=== PATIENT | male | born 1930 | race Caucasian/White ===

== ENCOUNTER 2016-12-31 18:31 | Inpatient (IN) ==
[2016-12-31] MEDS ORDERED: *HR* FentaNYL (PF) 100 MCG/2 ML VIAL IVP ONE (18:51)
[2016-12-31 18:52] LABS: Basophils % 0.1 %; Hematocrit 35.9 % (37.5-50.1); Hemoglobin 11.5 g/dL (12.9-16.9); Immature Granulocytes % 0.4 % (0-4); Lymphocytes # 1.2 K/mcL (0.6-4.6); Lymphocytes % 7.6 %; Mean Corpuscular Hemoglobin 31.3 pg (28.0-33.3); Mean Corpuscular Volume 97.8 fL (83.0-100.0); Mean Platelet Volume 10.2 fL (9.4-12.4); Monocytes # 1.1 K/mcL (0.0-1.3); Monocytes % 7.2 %; Neutrophils # 13.2 K/mcL (1.6-8.9); Platelet Count 165 K/mcL (140-400); Red Blood Count 3.67 M/mcL (4.19-5.50); Red Cell Distribution Width 14.9 % (11.5-14.5); Segmented Neutrophils % 84.7 %
[2016-12-31] MEDS ORDERED: *HR* Etomidate 20 MG/10 ML AMPUL IVP ONE (18:55)
[2016-12-31] MEDS ORDERED: *HR* Rocuronium Bromide 50 MG/5 ML VIAL IVP ONE (18:55)
--- NOTE | 2016-12-31 18:56 | Emergency Department Note ---
Disposition Clinical Impression: Respiratory distress Aspiration pneumonia Qualifiers: Aspiration pneumonia type: unspecified Laterality: unspecified laterality Lung location: unspecified part of lung Qualified Code(s): J69.0 - Pneumonitis due to inhalation of food and vomit Disposition: Admitted As Inpatient Condition: Fair SOB HPI - General Chief Complaint: ED Shortness of Breath/Dyspnea Stated Complaint: respiratory distress Time Seen by Provider: 12/31/16 18:33 Source: family, EMS Mode of arrival: EMS Limitations: altered mental status Nursing Notes Reviewed: Yes Vital Signs Reviewed: Yes - History of Present Illness 86-year-old male with a history of diabetes, hypertension, redo sternotomy in the remote past presents for evaluation respiratory distress. provided all the history as patient is nonverbal. Patient is non-motoric baseline and is limited verbally. states that the patient choked on his breakfast early this morning and then had increasing shortness of breath throughout the day. By the time the patient arrived to the emergency department. The patient was minimally responsive and CODE STATUS was discussed with the family states the patient is full code. Discuss intubation for airway protection. agreed that they would go ahead with intubation. Patient's bedside blood sugar was noted to be high in the 300s. Patient's EKG initially shows no acute abnormalities. - Related Data Home Medications Medication Instructions Recorded Confirmed Aspirin Enteric Coated [Aspirin EC] 81 mg PO DAILY 03/14/16 03/14/16 Citalopram [CeleXA] 40 mg PO DAILY 03/14/16 03/14/16 Insulin DETEMIR [Levemir Flextouch] 10 unit SQ HS 03/14/16 06/13/16 Metformin [Glucophage] 500 mg PO BIDWM 03/14/16 03/14/16 Multivits,Ca,Min/Iron/FA/Lycop 1 each PO DAILY 03/14/16 03/14/16 [Centrum Men's Tablet] Potassium Chloride [K-Tab ER] 20 meq PO DAILY 03/14/16 03/14/16 Quetiapine Fumarate [SEROquel] 25 mg PO HS 03/14/16 03/14/16 Allergies Allergy/AdvReac Type Severity Reaction Status Date / Time cephalexin AdvReac Rash Verified 03/14/16 11:04 Penicillins AdvReac Swelling Verified 03/14/16 11:04 of Lip/Tongue/Throat Limitations: ROS unobtainable due to patients medical condition Past Medical History - Past Medical History Medical history: Reports: diabetes, hyperlipidemia, hypertension, myocardial infarction Surgical history: Reports: coronary bypass (CABG), orthopedic, other Psychiatric history: Reports: no psych history - Social History Smoking Status: Former smoker Smokeless Tobacco Status: No Alcohol use: Reports: none, unknown Drug use: Reports: none, unknown Physical Exam - General Limitations: altered mental status General appearance: in distress - Head Head exam: atraumatic, normal inspection - Eye Eye exam: Present: normal appearance, PERRL (3 mm ) - ENT ENT exam: normal exam, mucous membranes moist - Neck Neck exam: Present: trachea midline - Chest Chest inspection: Present: symmetric chest wall rise, other (Midline healing sternotomy scar) - Respiratory Respiratory exam: Present: respiratory distress, other (Diffuse bilateral rails in the upper and lower lung pappas) - Cardiovascular Cardiovascular exam: Present: tachycardia, normal heart sounds - Abdominal Exam Abdominal exam: Present: soft. 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 Notable respiratory distress. Patient was intubated for airway precaution with a low GCS. Patient history provided by the likely secondary to aspiration from choking on his meal earlier today. Patient had wet lung sounds initially and those concerns of pulmonary edema. Patient was intubated after confirming full CODE STATUS. Patient will get a metabolic and infectious workup as well as cardiopulmonary with EKG and troponin. - Reevaluation(s) Reevaluation #1: Patient seen and examined. Patient's vent settings were changes from the last ABG. Patient PO2 is elevated patient's FiO2 was titrated down. Updated family on plan of care. All questions were answered the time. Patient's vitals are stable. Awaiting critical care bed upstairs. Time: 20:30 Vital Signs Temperature 99.9 F H 12/31/16 18:35 Pulse Rate 103 12/31/16 18:35 Respiratory Rate 34 12/31/16 18:35 Blood Pressure 140/66 12/31/16 18:35 O2 Sat by Pulse Oximetry 96 12/31/16 18:35 Temperature 99.9 F H 12/31/16 18:35 Pulse Rate 91 12/31/16 20:14 Respiratory Rate 12 12/31/16 20:14 Blood Pressure 128/65 12/31/16 20:14 O2 Sat by Pulse Oximetry 100 12/31/16 20:14 Oxygen Delivery Oxygen Delivery Ventilator Procedures - Intubation Time out performed: Yes sedative: Etomidate Mg Given: 20 paralytic: Rocuronium Mg Given: 70 Laryngoscope: Lisy ET Tube Size: 7.5 ET Tube Uncuffed: Yes Tube Secured Depth (cm): 23 Tube Secured Location: lips Tube Placement Confirmation: visualized tube passing through cords, equal breath sounds bilaterally, no breath sounds over epigastrium, confirmation by capnometry Patient Tolerated Procedure: well Intubation Complications: none Shortness of Breath/Dyspnea - [facility] Narrative Medical decision making narrative: 86-year-old male presents for evaluation of acute respiratory failure. Patient was nonverbal and is nonverbal at baseline. Patient is nonambulatory at baseline. Patient's CODE STATUS was confirmed by patient's on arrival. Patient was full code and discussed intubation. confirms that the patient is limited verbal with being nonambulatory at baseline. Reports that he possibly choked on his breakfast this morning. Respiratory status worsened throughout the day. Patient was given neck upon arrival. Patient was requiring 15 L to maintain oxygenation. Patient was not protecting his airway and was concerned about further aspiration. Patient's GCS was 8. Patient was intubated without difficulty with the first pass. Patient was sedated with fentanyl as well as propofol. Patient's lab work reviewed shows a leukocytosis. Concern is that the patient lungs sounded wet patient was given IV fluid bolus. Patient does meet SIRS criteria however the 30 mL/kg bolus would not be appropriate for this gentleman at this time due to concerns of respiratory status possible pulmonary edema. Patient's lactate was mildly elevated at 2.7. Patient was started on antibiotics appropriate for aspiration pneumonia. Patient does have a penicillin allergy with possible anaphylaxis. Patient's creatinine is mildly elevated. Patient's mental status. To be somewhat at baseline per the family and neuro imaging with a CT was not indicated at this time. Discussed the plan of care with the family at bedside who agrees. Patient was admitted to the accident. Intensive care unit for further monitoring and therapy. - Lab Data Lab results reviewed: Yes I reviewed the patient's lab results. Result diagrams: 12/31/16 18:41 12/31/16 18:41 Lab Results 12/31/16 12/31/16 12/31/16 Range/Units 18:41 18:41 18:41 WBC 15.6 H (4.3-11.1) K/mcL RBC 3.67 L (4.19-5.50) M/mcL Hgb 11.5 L (12.9-16.9) g/dL Hct 35.9 L (37.5-50.1) % MCV 97.8 (83.0-100.0) fL MCH 31.3 (28.0-33.3) pg MCHC 32.0 (31.6-35.5) g/dL RDW 14.9 H (11.5-14.5) % Plt Count 165 (140-400) K/mcL MPV 10.2 (9.4-12.4) fL Immature Gran % 0.4 (0-4) % Seg Neutrophils % 84.7 % Lymphocytes % 7.6 % Monocytes % 7.2 % Eosinophils % 0.0 % Basophils % 0.1 % Neutrophils # 13.2 H (1.6-8.9) K/mcL Lymphocytes # 1.2 (0.6-4.6) K/mcL Monocytes # 1.1 (0.0-1.3) K/mcL Eosinophils # 0.0 (0.0-0.6) K/mcL Basophils # 0.0 (0.0-0.2) K/mcL Platelet Estimate Normal (Normal) PT 13.8 H (9.4-12.1) Seconds INR 1.3 APTT 32.6 (26.0-36.0) Seconds Sodium 146 H (136-145) mEq/L Potassium 3.8 (3.5-4.5) mEq/L Chloride 117 H (98-109) mEq/L Carbon Dioxide 19 (19-29) mEq/L BUN 39 H (8-26) mg/dL Creatinine 1.51 H (0.72-1.25) mg/dL Est GFR ( Amer) 53 L (> 60) Est GFR (Non-Af Amer) 44 L (> 60) BUN/Creatinine Ratio 26 (6-26) Glucose 367 H (70-99) mg/dL Calculated Osmolality 326 H (280-300) Lactic Acid (0.5-2.2) mmol/L Calcium 9.3 (8.6-10.8) mg/dL Total Bilirubin 0.3 (0.2-1.2) mg/dL Direct Bilirubin 0.2 (0.0-0.5) mg/dL Indirect Bilirubin 0.1 (0.0-1.2) mg/dL AST 13 (5-34) Units/L ALT 19 (0-55) Units/L Alkaline Phosphatase 98 (38-126) Units/L Troponin I (0-0.03) ng/mL B-Natriuretic Peptide (0-100) pg/mL Serum Total Protein 7.2 (6.0-8.3) g/dL Albumin 2.7 L (3.5-5.0) g/dL Globulin 4.5 H (2.4-3.5) g/dL Albumin/Globulin Ratio 0.6 L (1.1-2.2) Urine Color (Yellow) Urine Clarity (Clear) Urine pH (5.0-8.0) pH Units Ur Specific [place] (1.010-1.025) Urine Protein (Neg-Trace) mg/dL Urine Glucose (UA) (Normal) mg/dL Urine Ketones (Negative) mg/dL Urine Blood (Negative) Urine Nitrite (Negative) Urine Bilirubin (Negative) Urine Urobilinogen (Normal) mg/dL Ur Leukocyte Esterase (Negative) Urine Microscopic RBC (0-3) per hpf Urine Microscopic WBC (0-3) per hpf Ur Squamous Epith Cells (None-Few) per lpf Amorphous Sediment (Few) Urine Bacteria (None-Few) per hpf Hyaline Casts (None-Few) per lpf Granular Casts (None Seen) per lpf Urine Yeast Ur Culture Indicated? (NO) 12/31/16 12/31/16 12/31/16 Range/Units 18:41 18:41 19:09 WBC (4.3-11.1) K/mcL RBC (4.19-5.50) M/mcL Hgb (12.9-16.9) g/dL Hct (37.5-50.1) % MCV (83.0-100.0) fL MCH (28.0-33.3) pg MCHC (31.6-35.5) g/dL RDW (11.5-14.5) % Plt Count (140-400) K/mcL MPV (9.4-12.4) fL Immature Gran % (0-4) % Seg Neutrophils % % Lymphocytes % % Monocytes % % Eosinophils % % Basophils % % Neutrophils # (1.6-8.9) K/mcL Lymphocytes # (0.6-4.6) K/mcL Monocytes # (0.0-1.3) K/mcL Eosinophils # (0.0-0.6) K/mcL Basophils # (0.0-0.2) K/mcL Platelet Estimate (Normal) PT (9.4-12.1) Seconds INR APTT (26.0-36.0) Seconds Sodium (136-145) mEq/L Potassium (3.5-4.5) mEq/L Chloride (98-109) mEq/L Carbon Dioxide (19-29) mEq/L BUN (8-26) mg/dL Creatinine (0.72-1.25) mg/dL Est GFR ( Amer) (> 60) Est GFR (Non-Af Amer) (> 60) BUN/Creatinine Ratio (6-26) Glucose (70-99) mg/dL Calculated Osmolality (280-300) Lactic Acid (0.5-2.2) mmol/L Calcium (8.6-10.8) mg/dL Total Bilirubin (0.2-1.2) mg/dL Direct Bilirubin (0.0-0.5) mg/dL Indirect Bilirubin (0.0-1.2) mg/dL AST (5-34) Units/L ALT (0-55) Units/L Alkaline Phosphatase (38-126) Units/L Troponin I 0.02 (0-0.03) ng/mL B-Natriuretic Peptide 232 H (0-100) pg/mL Serum Total Protein (6.0-8.3) g/dL Albumin (3.5-5.0) g/dL Globulin (2.4-3.5) g/dL Albumin/Globulin Ratio (1.1-2.2) Urine Color Yellow (Yellow) Urine Clarity Slightly Hazy (Clear) Urine pH 5.5 (5.0-8.0) pH Units Ur Specific [place] 1.020 (1.010-1.025) Urine Protein 100 H (Neg-Trace) mg/dL Urine Glucose (UA) Normal (Normal) mg/dL Urine Ketones Negative (Negative) mg/dL Urine Blood Negative (Negative) Urine Nitrite Negative (Negative) Urine Bilirubin Negative (Negative) Urine Urobilinogen Normal (Normal) mg/dL Ur Leukocyte Esterase Negative (Negative) Urine Microscopic RBC 3-5 H (0-3) per hpf Urine Microscopic WBC 0-3 (0-3) per hpf Ur Squamous Epith Cells Many H (None-Few) per lpf Amorphous Sediment Moderate H (Few) Urine Bacteria None Seen (None-Few) per hpf Hyaline Casts Few (None-Few) per lpf Granular Casts Few H (None Seen) per lpf Urine Yeast Test Not Performed Ur Culture Indicated? NO (NO) 12/31/16 Range/Units 19:16 WBC (4.3-11.1) K/mcL RBC (4.19-5.50) M/mcL Hgb (12.9-16.9) g/dL Hct (37.5-50.1) % MCV (83.0-100.0) fL MCH (28.0-33.3) pg MCHC (31.6-35.5) g/dL RDW (11.5-14.5) % Plt Count (140-400) K/mcL MPV (9.4-12.4) fL Immature Gran % (0-4) % Seg Neutrophils % % Lymphocytes % % Monocytes % % Eosinophils % % Basophils % % Neutrophils # (1.6-8.9) K/mcL Lymphocytes # (0.6-4.6) K/mcL Monocytes # (0.0-1.3) K/mcL Eosinophils # (0.0-0.6) K/mcL Basophils # (0.0-0.2) K/mcL Platelet Estimate (Normal) PT (9.4-12.1) Seconds INR APTT (26.0-36.0) Seconds Sodium (136-145) mEq/L Potassium (3.5-4.5) mEq/L Chloride (98-109) mEq/L Carbon Dioxide (19-29) mEq/L BUN (8-26) mg/dL Creatinine (0.72-1.25) mg/dL Est GFR ( Amer) (> 60) Est GFR (Non-Af Amer) (> 60) BUN/Creatinine Ratio (6-26) Glucose (70-99) mg/dL Calculated Osmolality (280-300) Lactic Acid 2.7 H (0.5-2.2) mmol/L Calcium (8.6-10.8) mg/dL Total Bilirubin (0.2-1.2) mg/dL Direct Bilirubin (0.0-0.5) mg/dL Indirect Bilirubin (0.0-1.2) mg/dL AST (5-34) Units/L ALT (0-55) Units/L Alkaline Phosphatase (38-126) Units/L Troponin I (0-0.03) ng/mL B-Natriuretic Peptide (0-100) pg/mL Serum Total Protein (6.0-8.3) g/dL Albumin (3.5-5.0) g/dL Globulin (2.4-3.5) g/dL Albumin/Globulin Ratio (1.1-2.2) Urine Color (Yellow) Urine Clarity (Clear) Urine pH (5.0-8.0) pH Units Ur Specific [place] (1.010-1.025) Urine Protein (Neg-Trace) mg/dL Urine Glucose (UA) (Normal) mg/dL Urine Ketones (Negative) mg/dL Urine Blood (Negative) Urine Nitrite (Negative) Urine Bilirubin (Negative) Urine Urobilinogen (Normal) mg/dL Ur Leukocyte Esterase (Negative) Urine Microscopic RBC (0-3) per hpf Urine Microscopic WBC (0-3) per hpf Ur Squamous Epith Cells (None-Few) per lpf Amorphous Sediment (Few) Urine Bacteria (None-Few) per hpf Hyaline Casts (None-Few) per lpf Granular Casts (None Seen) per lpf Urine Yeast Ur Culture Indicated? (NO) - Radiology Data Radiology results reviewed: Yes I reviewed the patient's radiology results. Chest X-Ray 12/31/16 18:33 IMPRESSION: Endotracheal tube with tip approximately 1.7 cm from the kia. Tip is angled toward the right. This may be related to patient head positioning. Small left pleural effusion. Improvement in left basilar opacity. Air-filled loops of bowel in the upper abdomen which appear prominent. Consider further evaluation with dedicated abdominal radiographs. D/ / Anna Sellers MD / Anna Sellers MD Interpreting Provider: Anna Sellers MD - EKG Data EKG attestation: Yes I reviewed and interpreted this EKG. EKG shows normal: Reports: sinus rhythm Rate: Reports: tachycardia Rhythm: Reports: NSR Ashley/QRS: Reports: normal, RBBB (incomplete) When compared to previous EKG there are: changes noted (2014) Interpretation: Reports: nonspecific ST-T wave changes S.B.Angie - Ángel Situation: Demographics Background: Presenting Complaint, Relevant PMH, Meds, & Allergies Assessment: Vital Signs, Course and respsone to treatment, Exam Concerns, Patient/Family Expectation, Pertinant Lab Results, Outstanding Labs Recommendation: Barrier(s) to disposition, Recommendation based on pending studies, treatments, or consults S.BKizzy Report Given to: Dr. Alex Neal Repor Time: 19:23
[2016-12-31 18:57] LABS: INR 1.3; Prothrombin Time 13.8 Seconds (9.4-12.1)
--- NOTE | 2016-12-31 18:58 | Emergency Department Note ---
Disposition Clinical Impression: Respiratory distress, Aspiration pneumonia Disposition: Admitted As Inpatient Condition: Fair General Adult HPI - General Chief complaint: ED Shortness of Breath/Dyspnea Stated complaint: respiratory distress Time Seen by Provider: 12/31/16 18:33 Source: family, EMS Mode of arrival: EMS Limitations: altered mental status - History of Present Illness Pain Scale: 0 - Related Data Home Medications Medication Instructions Recorded Confirmed Aspirin Enteric Coated [Aspirin EC] 81 mg PO DAILY 03/14/16 03/14/16 Citalopram [CeleXA] 40 mg PO DAILY 03/14/16 03/14/16 Insulin DETEMIR [Levemir Flextouch] 10 unit SQ HS 03/14/16 06/13/16 Metformin [Glucophage] 500 mg PO BIDWM 03/14/16 03/14/16 Multivits,Ca,Min/Iron/FA/Lycop 1 each PO DAILY 03/14/16 03/14/16 [Centrum Men's Tablet] Potassium Chloride [K-Tab ER] 20 meq PO DAILY 03/14/16 03/14/16 Quetiapine Fumarate [SEROquel] 25 mg PO HS 03/14/16 03/14/16 Allergies Allergy/AdvReac Type Severity Reaction Status Date / Time cephalexin AdvReac Rash Verified 03/14/16 11:04 Penicillins AdvReac Swelling Verified 03/14/16 11:04 of Lip/Tongue/Throat Past Medical History - Past Medical History Medical history: Reports: diabetes, hyperlipidemia, hypertension, myocardial infarction Surgical history: Reports: coronary bypass (CABG), orthopedic, other Psychiatric history: Reports: no psych history - Social History Smoking Status: Former smoker Smokeless Tobacco Status: No Alcohol use: Reports: none, unknown Drug use: Reports: none, unknown Physical Exam - General Limitations: altered mental status General appearance: in distress Course Vital Signs Temperature 99.9 F H 12/31/16 18:35 Pulse Rate 103 12/31/16 18:35 Respiratory Rate 34 12/31/16 18:35 Blood Pressure 140/66 12/31/16 18:35 O2 Sat by Pulse Oximetry 96 12/31/16 18:35 Temperature 99.7 F H 12/31/16 21:00 Pulse Rate 96 12/31/16 22:00 Respiratory Rate 12 12/31/16 22:00 Blood Pressure 83/42 12/31/16 22:00 O2 Sat by Pulse Oximetry 91 12/31/16 22:00 Oxygen Delivery Oxygen Delivery Ventilator Medical Decision Making - Lab Data Result diagrams: 12/31/16 18:41 12/31/16 18:41 Lab Results 12/31/16 12/31/16 12/31/16 Range/Units 18:41 18:41 18:41 WBC 15.6 H (4.3-11.1) K/mcL RBC 3.67 L (4.19-5.50) M/mcL Hgb 11.5 L (12.9-16.9) g/dL Hct 35.9 L (37.5-50.1) % MCV 97.8 (83.0-100.0) fL MCH 31.3 (28.0-33.3) pg MCHC 32.0 (31.6-35.5) g/dL RDW 14.9 H (11.5-14.5) % Plt Count 165 (140-400) K/mcL MPV 10.2 (9.4-12.4) fL Immature Gran % 0.4 (0-4) % Seg Neutrophils % 84.7 % Lymphocytes % 7.6 % Monocytes % 7.2 % Eosinophils % 0.0 % Basophils % 0.1 % Neutrophils # 13.2 H (1.6-8.9) K/mcL Lymphocytes # 1.2 (0.6-4.6) K/mcL Monocytes # 1.1 (0.0-1.3) K/mcL Eosinophils # 0.0 (0.0-0.6) K/mcL Basophils # 0.0 (0.0-0.2) K/mcL Platelet Estimate Normal (Normal) PT 13.8 H (9.4-12.1) Seconds INR 1.3 APTT 32.6 (26.0-36.0) Seconds Sodium 146 H (136-145) mEq/L Potassium 3.8 (3.5-4.5) mEq/L Chloride 117 H (98-109) mEq/L Carbon Dioxide 19 (19-29) mEq/L BUN 39 H (8-26) mg/dL Creatinine 1.51 H (0.72-1.25) mg/dL Est GFR ( Amer) 53 L (> 60) Est GFR (Non-Af Amer) 44 L (> 60) BUN/Creatinine Ratio 26 (6-26) Glucose 367 H (70-99) mg/dL Est Mean Plasma Glucose mg/dl Hemoglobin A1c ( - 5.6) % Calculated Osmolality 326 H (280-300) Lactic Acid (0.5-2.2) mmol/L Calcium 9.3 (8.6-10.8) mg/dL Phosphorus 2.9 (2.3-4.7) mg/dL Magnesium 1.4 L (1.6-2.6) mg/dL Total Bilirubin 0.3 (0.2-1.2) mg/dL Direct Bilirubin 0.2 (0.0-0.5) mg/dL Indirect Bilirubin 0.1 (0.0-1.2) mg/dL AST 13 (5-34) Units/L ALT 19 (0-55) Units/L Alkaline Phosphatase 98 (38-126) Units/L Troponin I (0-0.03) ng/mL B-Natriuretic Peptide (0-100) pg/mL Serum Total Protein 7.2 (6.0-8.3) g/dL Albumin 2.7 L (3.5-5.0) g/dL Globulin 4.5 H (2.4-3.5) g/dL Albumin/Globulin Ratio 0.6 L (1.1-2.2) Urine Color (Yellow) Urine Clarity (Clear) Urine pH (5.0-8.0) pH Units Ur Specific [place] (1.010-1.025) Urine Protein (Neg-Trace) mg/dL Urine Glucose (UA) (Normal) mg/dL Urine Ketones (Negative) mg/dL Urine Blood (Negative) Urine Nitrite (Negative) Urine Bilirubin (Negative) Urine Urobilinogen (Normal) mg/dL Ur Leukocyte Esterase (Negative) Urine Microscopic RBC (0-3) per hpf Urine Microscopic WBC (0-3) per hpf Ur Squamous Epith Cells (None-Few) per lpf Amorphous Sediment (Few) Urine Bacteria (None-Few) per hpf Hyaline Casts (None-Few) per lpf Granular Casts (None Seen) per lpf Urine Yeast Ur Culture Indicated? (NO) 12/31/16 12/31/16 12/31/16 Range/Units 18:41 18:41 18:41 WBC (4.3-11.1) K/mcL RBC (4.19-5.50) M/mcL Hgb (12.9-16.9) g/dL Hct (37.5-50.1) % MCV (83.0-100.0) fL MCH (28.0-33.3) pg MCHC (31.6-35.5) g/dL RDW (11.5-14.5) % Plt Count (140-400) K/mcL MPV (9.4-12.4) fL Immature Gran % (0-4) % Seg Neutrophils % % Lymphocytes % % Monocytes % % Eosinophils % % Basophils % % Neutrophils # (1.6-8.9) K/mcL Lymphocytes # (0.6-4.6) K/mcL Monocytes # (0.0-1.3) K/mcL Eosinophils # (0.0-0.6) K/mcL Basophils # (0.0-0.2) K/mcL Platelet Estimate (Normal) PT (9.4-12.1) Seconds INR APTT (26.0-36.0) Seconds Sodium (136-145) mEq/L Potassium (3.5-4.5) mEq/L Chloride (98-109) mEq/L Carbon Dioxide (19-29) mEq/L BUN (8-26) mg/dL Creatinine (0.72-1.25) mg/dL Est GFR ( Amer) (> 60) Est GFR (Non-Af Amer) (> 60) BUN/Creatinine Ratio (6-26) Glucose (70-99) mg/dL Est Mean Plasma Glucose 134 mg/dl Hemoglobin A1c 6.3 H ( - 5.6) % Calculated Osmolality (280-300) Lactic Acid (0.5-2.2) mmol/L Calcium (8.6-10.8) mg/dL Phosphorus (2.3-4.7) mg/dL Magnesium (1.6-2.6) mg/dL Total Bilirubin (0.2-1.2) mg/dL Direct Bilirubin (0.0-0.5) mg/dL Indirect Bilirubin (0.0-1.2) mg/dL AST (5-34) Units/L ALT (0-55) Units/L Alkaline Phosphatase (38-126) Units/L Troponin I 0.02 (0-0.03) ng/mL B-Natriuretic Peptide 232 H (0-100) pg/mL Serum Total Protein (6.0-8.3) g/dL Albumin (3.5-5.0) g/dL Globulin (2.4-3.5) g/dL Albumin/Globulin Ratio (1.1-2.2) Urine Color (Yellow) Urine Clarity (Clear) Urine pH (5.0-8.0) pH Units Ur Specific [place] (1.010-1.025) Urine Protein (Neg-Trace) mg/dL Urine Glucose (UA) (Normal) mg/dL Urine Ketones (Negative) mg/dL Urine Blood (Negative) Urine Nitrite (Negative) Urine Bilirubin (Negative) Urine Urobilinogen (Normal) mg/dL Ur Leukocyte Esterase (Negative) Urine Microscopic RBC (0-3) per hpf Urine Microscopic WBC (0-3) per hpf Ur Squamous Epith Cells (None-Few) per lpf Amorphous Sediment (Few) Urine Bacteria (None-Few) per hpf Hyaline Casts (None-Few) per lpf Granular Casts (None Seen) per lpf Urine Yeast Ur Culture Indicated? (NO) 12/31/16 12/31/16 Range/Units 19:09 19:16 WBC (4.3-11.1) K/mcL RBC (4.19-5.50) M/mcL Hgb (12.9-16.9) g/dL Hct (37.5-50.1) % MCV (83.0-100.0) fL MCH (28.0-33.3) pg MCHC (31.6-35.5) g/dL RDW (11.5-14.5) % Plt Count (140-400) K/mcL MPV (9.4-12.4) fL Immature Gran % (0-4) % Seg Neutrophils % % Lymphocytes % % Monocytes % % Eosinophils % % Basophils % % Neutrophils # (1.6-8.9) K/mcL Lymphocytes # (0.6-4.6) K/mcL Monocytes # (0.0-1.3) K/mcL Eosinophils # (0.0-0.6) K/mcL Basophils # (0.0-0.2) K/mcL Platelet Estimate (Normal) PT (9.4-12.1) Seconds INR APTT (26.0-36.0) Seconds Sodium (136-145) mEq/L Potassium (3.5-4.5) mEq/L Chloride (98-109) mEq/L Carbon Dioxide (19-29) mEq/L BUN (8-26) mg/dL Creatinine (0.72-1.25) mg/dL Est GFR ( Amer) (> 60) Est GFR (Non-Af Amer) (> 60) BUN/Creatinine Ratio (6-26) Glucose (70-99) mg/dL Est Mean Plasma Glucose mg/dl Hemoglobin A1c ( - 5.6) % Calculated Osmolality (280-300) Lactic Acid 2.7 H (0.5-2.2) mmol/L Calcium (8.6-10.8) mg/dL Phosphorus (2.3-4.7) mg/dL Magnesium (1.6-2.6) mg/dL Total Bilirubin (0.2-1.2) mg/dL Direct Bilirubin (0.0-0.5) mg/dL Indirect Bilirubin (0.0-1.2) mg/dL AST (5-34) Units/L ALT (0-55) Units/L Alkaline Phosphatase (38-126) Units/L Troponin I (0-0.03) ng/mL B-Natriuretic Peptide (0-100) pg/mL Serum Total Protein (6.0-8.3) g/dL Albumin (3.5-5.0) g/dL Globulin (2.4-3.5) g/dL Albumin/Globulin Ratio (1.1-2.2) Urine Color Yellow (Yellow) Urine Clarity Slightly Hazy (Clear) Urine pH 5.5 (5.0-8.0) pH Units Ur Specific [place] 1.020 (1.010-1.025) Urine Protein 100 H (Neg-Trace) mg/dL Urine Glucose (UA) Normal (Normal) mg/dL Urine Ketones Negative (Negative) mg/dL Urine Blood Negative (Negative) Urine Nitrite Negative (Negative) Urine Bilirubin Negative (Negative) Urine Urobilinogen Normal (Normal) mg/dL Ur Leukocyte Esterase Negative (Negative) Urine Microscopic RBC 3-5 H (0-3) per hpf Urine Microscopic WBC 0-3 (0-3) per hpf Ur Squamous Epith Cells Many H (None-Few) per lpf Amorphous Sediment Moderate H (Few) Urine Bacteria None Seen (None-Few) per hpf Hyaline Casts Few (None-Few) per lpf Granular Casts Few H (None Seen) per lpf Urine Yeast Test Not Performed Ur Culture Indicated? NO (NO) Critical Care Time Critical Care Time: Yes Total Critical Care Time: 45 Attestation: Patient presented in respiratory distress requiring intubation. He will be admitted to the ICU Attestation Statement - Attestation Attestation: I examined this patient and my medical decision-making was reviewed with the CROOK OPERATOR/PA/Advanced Practice Nurse/Resident Physician. I agree with the documented findings, disposition and treatment plan as described except to the extent set forth below. [id number] time provided Patient presents in respiratory distress. The spouse notes he vomited earlier today. She states he is a full code. He is nonambulatory and minimally verbal at baseline. Increase work of breathing noted. Patient electively endotracheally intubated by the resident physician for airway protection and respiratory support.
[2016-12-31 18:59] LABS: Activated Partial Thrombo Time 32.6 Seconds (26.0-36.0)
[2016-12-31 19:07] LABS: Albumin 2.7 g/dL (3.5-5.0); Albumin/Globulin Ratio 0.6 (1.1-2.2); Bilirubin,Direct 0.2 mg/dL (0.0-0.5); Bilirubin,Indirect 0.1 mg/dL (0.0-1.2); Bilirubin,Total 0.3 mg/dL (0.2-1.2); Calcium 9.3 mg/dL (8.6-10.8); Globulin 4.5 g/dL (2.4-3.5); Potassium 3.8 mEq/L (3.5-4.5); Total Protein 7.2 g/dL (6.0-8.3)
[2016-12-31] MEDS ORDERED: Levofloxacin 750 MG/150 ML 750 MG/150 ML BAG IVPB ONE (19:11)
[2016-12-31 19:16] LABS: Platelet Estimate Normal (Normal)
[2016-12-31 19:16] LABS: Bilirubin,Urine Negative (Negative); Blood,Urine Negative (Negative); Color,Urine Yellow (Yellow); Glucose,Urine (UA) Normal (Normal); Ketones,Urine Negative (Negative); Leukocyte Esterase,Urine Negative (Negative); Nitrite,Urine Negative (Negative); PH,Urine 5.5 pH Units (5.0-8.0); Protein,Urine 100 mg/dL (Neg-Trace); Urobilinogen,Urine Normal (Normal)
[2016-12-31] MEDS ORDERED: Propofol 500 MG/50 ML INFUS..BTL ONE (19:18)
[2016-12-31 19:19] LABS: Bacteria,Urine None Seen per hpf (None-Few); Squamous Epithelial Cell,Urine Many per lpf (None-Few); WBC,Urine 0-3 per hpf (0-3)
[2016-12-31 19:20] LABS: Clarity,Urine Slightly Hazy (Clear)
[2016-12-31] MEDS ORDERED: 0.9 % Sodium Chloride 1,000 ML IVC ONE (19:25)
[2016-12-31 19:29] LABS: Granular Casts,Urine Few per lpf (None Seen); Hyaline Casts,Urine Few per lpf (None-Few)
[2016-12-31 19:30] LABS: Amorphous Sediment,Urine Moderate (Few)
[2016-12-31 19:53] LABS: ABG Base Excess -4.9 mEq/L (-2.0 to 3.0); ABG HCO3 21.1 mEQ/L (21-27); ABG Oxygen Saturation 100 % (95-98); ABG PCO2 42 mmHg (35-45); ABG PH 7.31 pH Units (7.32-7.45); ABG PO2 281 mmHg (85-104); ABG TCO2 22.4 mEq/L (20-26)
[2016-12-31 19:54] LABS: Blood Gas FiO2 100 %
[2016-12-31] MEDS ORDERED: Lacri-Lube 3.5 GM TUBE BOTH EYES PRN (19:56)
[2016-12-31] MEDS ORDERED: Dextrose Gel 15 GM PO PRN ×2 (19:56)
[2016-12-31] MEDS ORDERED: Ondansetron 4 MG/2 ML VIAL IVP PRN (19:56)
[2016-12-31] MEDS ORDERED: *HR* Dextrose 50 % in Water (Syg) 50 ML SYRINGE IVP PRN (19:56)
[2016-12-31] MEDS ORDERED: *HR* Morphine 2 MG/ML SYRINGE IVP PRN (19:56)
[2016-12-31] MEDS ORDERED: *HR* LORazepam 2 MG/ML VIAL IVP PRN (19:56)
[2016-12-31] MEDS ORDERED: Metoclopramide 10 MG/2 ML VIAL IVP STA (19:56)
[2016-12-31] MEDS ORDERED: Naloxone 0.4 MG/ML INJ IVP PRN (19:56)
[2016-12-31] MEDS ORDERED: D5% in Water 1,000 ML IVC PRN (19:56)
[2016-12-31] MEDS ORDERED: Acetaminophen 650 MG RECTAL SUPP RC PRN (19:56)
[2016-12-31] MEDS ORDERED: methylPREDNISolone 125 MG/2 ML VIAL IVP STA (20:27)
[2016-12-31] MEDS ORDERED: Potassium Phosphate 44 MEQ in 0.9 % Sodium Chloride 250 ML IVPB PRN (20:29)
[2016-12-31] MEDS ORDERED: Sodium Phosphate 30 MMOL in D5% in Water 100 ML IVPB PRN (20:29)
[2016-12-31 20:37] LABS: Hemoglobin A1C 6.3 %; Magnesium 1.4 mg/dL (1.6-2.6); Phosphorous 2.9 mg/dL (2.3-4.7)
--- NOTE | 2016-12-31 20:42 | Internal Med History&Physical ---
Date of Encounter: 12/31/16 Time of Encounter: 20:00 Assessment and Plan (1) Acute respiratory failure, unspecified whether with hypoxia or hypercapnia Current visit: Yes Status: Acute . Qualifiers: Respiratory failure complication: unspecified whether with hypoxia or hypercapnia Qualified Code(s): J96.00 - Acute respiratory failure, unspecified whether with hypoxia or hypercapnia (2) Toxic metabolic encephalopathy Current visit: Yes Status: Acute . (3) Dementia arising in the senium and presenium Current visit: Yes Status: Chronic . (4) SIRS due to infectious process with acute organ dysfunction Current visit: Yes Status: Acute . (5) Sepsis Current visit: Yes Status: Acute . Qualifiers: Sepsis type: sepsis due to unspecified organism Qualified Code(s): A41.9 - Sepsis, unspecified organism (6) Debility, unspecified Current visit: Yes Status: Chronic . (7) Diabetes mellitus due to underlying condition with hyperosmolarity without nonketotic hyperglycemic-hyperosmolar coma (NKHHC) Current visit: Yes Status: Acute . (8) ANA (acute kidney injury) Current visit: Yes Status: Acute . (9) CKD (chronic kidney disease) stage 3, GFR 30-59 ml/min Current visit: Yes Status: Chronic . (10) CAD (coronary artery disease), [place] coronary artery Current visit: Yes Status: Chronic . Qualifiers: [place] vs. transplanted heart: [place] heart Associated angina: with unspecified angina Qualified Code(s): I25.119 - Atherosclerotic heart disease of [place] coronary artery with unspecified angina pectoris (11) Hx of CABG Current visit: Yes Status: Chronic . (12) Aspiration pneumonia Current visit: Yes Status: Acute . Qualifiers: Aspiration pneumonia type: unspecified Laterality: unspecified laterality Lung location: unspecified part of lung Qualified Code(s): J69.0 - Pneumonitis due to inhalation of food and vomit (13) Ileus, unspecified Current visit: Yes Status: Acute . (14) Dysphagia causing pulmonary aspiration with swallowing Current visit: Yes Status: Acute . (15) Severe sepsis with septic shock Current visit: Yes Status: Acute . (16) Ischemia due to increased oxygen demand Current visit: Yes Status: Acute . (17) Non-ST elevation myocardial infarction (NSTEMI) due to mismatch of myocardial oxygen supply and demand Current visit: Yes Status: Acute . (18) Sepsis with disseminated intravascular coagulopathy (DIC) Current visit: Yes Status: Acute . Internal Medicine - H&P: HPI Chief complaint: Acute severe difficulty breathing Admitted From: Emergency Dept Plans for Post Hospital Care: Home History of present illness: Mr. Mccoy is a 86 year old male with significant medical history of severe dementia/nonverbal/nonambulatory, CAD/CABG+redo/AMI, type II diabetes mellitus, hypertension, dyslipidemia, CKD III, ?mood disorder/depression- anxiety and former smoker. The patient is admitted to [facility] via the emergency department when he presents by EMS services from home following an acute episode of dysphagia choking on breakfast the morning of presentation and associated aspiration of vomitus. He initially appeared to free the obstructing bolus of food but became increasingly short of breath throughout the day leading to transfer to the ED for evaluation. Patient was electively endotracheally intubated for airway protection and respiratory support upon arrival in the emergency department. The patient's provided HISTORY of current circumstances given patient's history of severe debility at baseline. Findings in the ED: Vital signs noted temperature 99.9 pulse 100-10. Respirations 22-34 BP 140/66. O2 saturation 96-100% on ventilator support. Glascow coma scale 8 and arrival to ED. WBC 15.6 hemoglobin 11.5 platelets 165, 000. Differential demonstrated an increase in neutrophils. RDW 14.9. PT 13.8 INR 1.3 PTT 32.6. Comprehensive metabolic panel noted sodium 146 chloride 117. BUN 39 creatinine 1.51 GFR 44. Glucose 367 osmolality 326. Albumin 2.7 total protein 7.2. LFTs benign. Troponin 0.02 BNP 232. Urinalysis demonstrated large protein. 5 RBC. The WBC. Many squamous epithelial cells. Moderate amorphous sediment. Few hyaline casts. Few granular casts. Lactic acid 2.7. EKG sinus tachycardia. No acute ischemic changes. Nonspecific ST-T waves. Chest x-ray following intubation demonstrated evidence of endotracheal tube placement. Small left pleural effusion. Left basal opacity. Air-filled loops of bowel in the upper abdomen suggestive of ileus. The patient presents acutely/critically ill. Ventilator dependent respiratory failure secondary to apparent dysphasia with aspiration pneumonitis. Patient presents historically a debilitating acute on chronic encephalopathy and severe chronic, unspecified motor function impairment. Preliminary impressions also suggest SIRS/sepsis criteria present at time of admission. Multiorgan derangements (CVICU NURSE, pulmonary , renal, etc.) apparent. The patient is at high risk for further acute clinical decline and morbidity. Work-up and treatments will proceed comprehensively. The patient was visited and examined. Currently intubated, sedated and receiving mechanical ventilator support. Cumulative laboratory and radiographic database was reviewed and considered. Consultative opinions will be sought as clinical circumstances justify. Initial consultative opinion has been requested of pulmonary/critical care medicine. Plan of care has been discussed with the patient's . Questions addressed. Patient is admitted directly to the intensive care unit for higher level of care acquisition. Hospital course will be dependent upon clinical findings, treatment response and potential consultative interventions. Given the patient's presenting concerns, past medical history, clinical findings and symptoms, he is admitted at this time to undergo further evaluation and disposition. Orders were written as per the computerized physician enrobing machine corder system. Condition is serious. Critical presentation with evolving multiorgan derangements.. Prognosis is highly guarded. CODE STATUS is full per family request. Past Med Surg Social Fam HX - Past Medical History Source: old records reviewed Medical history: arthritis, COPD, coronary artery disease, dementia, diabetes, GERD, hyperlipidemia, hypertension, myocardial infarction, renal disease, other Psychiatric history: anxiety, depression, other - Past Surgical History Surgical History: coronary bypass (CABG), orthopedic, other (Lumbar spine surgery.), tracheostomy (Tracheostomy placement and takedown.), other ( Sternotomy redo 2 for wound dehiscence and secondary MRSA infection. Prior PEG tube placement for severe protein caloric malnutrition.) - Social History Smoking Status: Former smoker Smokeless Tobacco Status: No Alcohol use: none, unknown Drug use: none, unknown Occupational status: retired Current living situation: Home, With Family Activity Level: Bed bound, Mostly sedentary, Other Recent Out of Country Travel Within the Last 8 Weeks: No Exposure or Possible Exposure to Illness During Travel: No - Family History Mother Living Status: Hx Family Cardiac Disorders: Yes Internal Medicine - H&P: Meds Aspirin Enteric Coated [Aspirin EC] 81 mg PO DAILY 03/14/16 [History] Citalopram [CeleXA] 40 mg PO DAILY 03/14/16 [History] Insulin DETEMIR [Levemir Flextouch] 10 unit SQ HS 03/14/16 [History] Metformin [Glucophage] 500 mg PO BIDWM 03/14/16 [History] Multivits,Ca,Min/Iron/FA/Lycop [Centrum Men's Tablet] 1 each PO DAILY 03/14/16 [ History] Potassium Chloride [K-Tab ER] 20 meq PO DAILY 03/14/16 [History] Quetiapine Fumarate [SEROquel] 25 mg PO HS 03/14/16 [History] Allergies cephalexin Adverse Reaction (Verified 03/14/16 11:04) Rash Penicillins Adverse Reaction (Verified 03/14/16 11:04) Swelling of Lip/Tongue/Throat ROS unobtainable: due to mental status All Systems PM: Except as highlighted in history and physical there are no additional cyst positives as pertains to 10- point system survey. The patient is severely debilitated at baseline. Nonverbal. Nonambulatory. He presents acutely/ critically ill and encephalopathic. Discuss a non-historian of current circumstances and events. Details are collected from available medical records , EMS and ED staff triage and at the bedside, - Constitutional Constitutional: as per HPI - EENT Eyes: as per HPI Ears: as per HPI Nose, mouth and throat: as per HPI - Cardiovascular Cardiovascular ROS IM: as per HPI - Respiratory Respiratory: as per HPI - Gastrointestinal Gastrointestinal: as per HPI - Genitourinary Genitourinary ROS male: as per HPI - Musculoskeletal Musculoskeletal ROS IM: as per HPI - Integumentary Integumentary IM: as per HPI - Neurological Neurological ROS: as per HPI - Psychiatric Psychiatric: as per HPI - Endocrine Endocrine IM: as per HPI - Hematologic/Lymphatic Hematologic/Lymphatic: as per HPI - Allergic/Immunologic Allergic/Immunologic: as per HPI - Constitutional Vitals: Temp Pulse Resp BP Pulse Ox 99.9 F H 91 12 128/65 100 12/31/16 18:35 12/31/16 20:14 12/31/16 20:14 12/31/16 20:14 12/31/16 20:14 Vital Signs Temp Pulse Resp BP Pulse Ox 12/31/16 20:14 91 12 128/65 100 12/31/16 19:54 101 14 155/77 100 12/31/16 19:13 100 12 143/66 100 12/31/16 18:48 116 98 12/31/16 18:35 99.9 F H 103 34 140/66 96 Intake and Output 12/31/16 12/31/16 12/31/16 07:59 15:59 23:59 Other: Weight 83.915 kg Blood Glucose* 349 Patient Weight 12/31/16 23:59 Weight 83.915 kg General appearance: Present: A&O X 0. Absent: answers questions appropriately ( Patient is currently intubated, sedated and receiving mechanical ventilatory support.) Internal Med - H&P Results - Labs CBC & Chem 7: 01/01/17 03:30 01/01/17 03:30 Labs: Short CBC 12/31/16 Range/Units 18:41 WBC 15.6 H (4.3-11.1) K/mcL Hgb 11.5 L (12.9-16.9) g/dL Hct 35.9 L (37.5-50.1) % Plt Count 165 (140-400) K/mcL Neutrophils # 13.2 H (1.6-8.9) K/mcL BMP 12/31/16 Range/Units 18:41 Sodium 146 H (136-145) mEq/L Potassium 3.8 (3.5-4.5) mEq/L Chloride 117 H (98-109) mEq/L Carbon Dioxide 19 (19-29) mEq/L BUN 39 H (8-26) mg/dL Creatinine 1.51 H (0.72-1.25) mg/dL Glucose 367 H (70-99) mg/dL Calcium 9.3 (8.6-10.8) mg/dL Cardiac Enzymes 12/31/16 Range/Units 18:41 Troponin I 0.02 (0-0.03) ng/mL Liver Function 12/31/16 Range/Units 18:41 Total Bilirubin 0.3 (0.2-1.2) mg/dL Direct Bilirubin 0.2 (0.0-0.5) mg/dL AST 13 (5-34) Units/L ALT 19 (0-55) Units/L Alkaline Phosphatase 98 (38-126) Units/L Albumin 2.7 L (3.5-5.0) g/dL Urine 12/31/16 Range/Units 19:09 Urine Color Yellow (Yellow) Urine Clarity Slightly Hazy (Clear) Urine pH 5.5 (5.0-8.0) pH Units Ur Specific [place] 1.020 (1.010-1.025) Urine Protein 100 H (Neg-Trace) mg/dL Urine Glucose (UA) Normal (Normal) mg/dL Abnormal lab results WBC 15.6 K/mcL (4.3-11.1) H 12/31/16 18:41 RBC 3.67 M/mcL (4.19-5.50) L 12/31/16 18:41 Hgb 11.5 g/dL (12.9-16.9) L 12/31/16 18:41 Hct 35.9 % (37.5-50.1) L 12/31/16 18:41 RDW 14.9 % (11.5-14.5) H 12/31/16 18:41 Neutrophils # 13.2 K/mcL (1.6-8.9) H 12/31/16 18:41 PT 13.8 Seconds (9.4-12.1) H 12/31/16 18:41 ABG pH 7.31 pH Units (7.32-7.45) L 12/31/16 19:45 ABG pO2 281 mmHg (85-104) H 12/31/16 19:45 ABG O2 Saturation 100 % (95-98) H 12/31/16 19:45 ABG Base Excess -4.9 mEq/L (-2.0 to 3.0) L 12/31/16 19:45 Sodium 146 mEq/L (136-145) H 12/31/16 18:41 Chloride 117 mEq/L (98-109) H 12/31/16 18:41 BUN 39 mg/dL (8-26) H 12/31/16 18:41 Creatinine 1.51 mg/dL (0.72-1.25) H 12/31/16 18:41 Est GFR ( Amer) 53 (> 60) L 12/31/16 18:41 Est GFR (Non-Af Amer) 44 (> 60) L 12/31/16 18:41 Glucose 367 mg/dL (70-99) H 12/31/16 18:41 Hemoglobin A1c 6.3 % (-5.6) H 12/31/16 18:41 Calculated Osmolality 326 (280-300) H 12/31/16 18:41 Lactic Acid 2.7 mmol/L (0.5-2.2) H 12/31/16 19:16 Magnesium 1.4 mg/dL (1.6-2.6) L 12/31/16 18:41 B-Natriuretic Peptide 232 pg/mL (0-100) H 12/31/16 18:41 Albumin 2.7 g/dL (3.5-5.0) L 12/31/16 18:41 Globulin 4.5 g/dL (2.4-3.5) H 12/31/16 18:41 Albumin/Globulin Ratio 0.6 (1.1-2.2) L 12/31/16 18:41 Urine Protein 100 mg/dL (Neg-Trace) H 12/31/16 19:09 Urine Microscopic RBC 3-5 per hpf (0-3) H 12/31/16 19:09 Ur Squamous Epith Cells Many per lpf (None-Few) H 12/31/16 19:09 Amorphous Sediment Moderate (Few) H 12/31/16 19:09 Granular Casts Few per lpf (None Seen) H 12/31/16 19:09 12/31/16 19:45 ABG pH 7.31 L ABG pCO2 42 ABG pO2 281 H ABG HCO3 21.1 ABG Total CO2 22.4 ABG O2 Saturation 100 H ABG Base Excess -4.9 L Laboratory Results WBC 15.6 K/mcL (4.3-11.1) H 12/31/16 18:41 RBC 3.67 M/mcL (4.19-5.50) L 12/31/16 18:41 Hgb 11.5 g/dL (12.9-16.9) L 12/31/16 18:41 Hct 35.9 % (37.5-50.1) L 12/31/16 18:41 MCV 97.8 fL (83.0-100.0) 12/31/16 18:41 MCH 31.3 pg (28.0-33.3) 12/31/16 18:41 MCHC 32.0 g/dL (31.6-35.5) 12/31/16 18:41 RDW 14.9 % (11.5-14.5) H 12/31/16 18:41 Plt Count 165 K/mcL (140-400) 12/31/16 18:41 MPV 10.2 fL (9.4-12.4) 12/31/16 18:41 Immature Gran % 0.4 % (0-4) 12/31/16 18:41 Seg Neutrophils % 84.7 % 12/31/16 18:41 Lymphocytes % 7.6 % 12/31/16 18:41 Monocytes % 7.2 % 12/31/16 18:41 Eosinophils % 0.0 % 12/31/16 18:41 Basophils % 0.1 % 12/31/16 18:41 Neutrophils # 13.2 K/mcL (1.6-8.9) H 12/31/16 18:41 Lymphocytes # 1.2 K/mcL (0.6-4.6) 12/31/16 18:41 Monocytes # 1.1 K/mcL (0.0-1.3) 12/31/16 18:41 Eosinophils # 0.0 K/mcL (0.0-0.6) 12/31/16 18:41 Basophils # 0.0 K/mcL (0.0-0.2) 12/31/16 18:41 Platelet Estimate Normal (Normal) 12/31/16 18:41 PT 13.8 Seconds (9.4-12.1) H 12/31/16 18:41 INR 1.3 12/31/16 18:41 APTT 32.6 Seconds (26.0-36.0) 12/31/16 18:41 ABG pH 7.31 pH Units (7.32-7.45) L 12/31/16 19:45 ABG pCO2 42 mmHg (35-45) 12/31/16 19:45 ABG pO2 281 mmHg (85-104) H 12/31/16 19:45 ABG HCO3 21.1 mEQ/L (21-27) 12/31/16 19:45 ABG Total CO2 22.4 mEq/L (20-26) 12/31/16 19:45 ABG O2 Saturation 100 % (95-98) H 12/31/16 19:45 ABG Base Excess -4.9 mEq/L (-2.0 to 3.0) L 12/31/16 19:45 Blood Gas Modality VCT 12/31/16 19:45 Inspired O2 100 % 12/31/16 19:45 Sodium 146 mEq/L (136-145) H 12/31/16 18:41 Potassium 3.8 mEq/L (3.5-4.5) 12/31/16 18:41 Chloride 117 mEq/L (98-109) H 12/31/16 18:41 Carbon Dioxide 19 mEq/L (19-29) 12/31/16 18:41 BUN 39 mg/dL (8-26) H 12/31/16 18:41 Creatinine 1.51 mg/dL (0.72-1.25) H 12/31/16 18:41 Est GFR ( Amer) 53 (> 60) L 12/31/16 18:41 Est GFR (Non-Af Amer) 44 (> 60) L 12/31/16 18:41 BUN/Creatinine Ratio 26 (6-26) 12/31/16 18:41 Glucose 367 mg/dL (70-99) H 12/31/16 18:41 Est Mean Plasma Glucose 134 mg/dl 12/31/16 18:41 Hemoglobin A1c 6.3 % (-5.6) H 12/31/16 18:41 Calculated Osmolality 326 (280-300) H 12/31/16 18:41 Lactic Acid 2.7 mmol/L (0.5-2.2) H 12/31/16 19:16 Calcium 9.3 mg/dL (8.6-10.8) 12/31/16 18:41 Phosphorus 2.9 mg/dL (2.3-4.7) 12/31/16 18:41 Magnesium 1.4 mg/dL (1.6-2.6) L 12/31/16 18:41 Total Bilirubin 0.3 mg/dL (0.2-1.2) 12/31/16 18:41 Direct Bilirubin 0.2 mg/dL (0.0-0.5) 12/31/16 18:41 Indirect Bilirubin 0.1 mg/dL (0.0-1.2) 12/31/16 18:41 AST 13 Units/L (5-34) 12/31/16 18:41 ALT 19 Units/L (0-55) 12/31/16 18:41 Alkaline Phosphatase 98 Units/L (38-126) 12/31/16 18:41 Troponin I 0.02 ng/mL (0-0.03) 12/31/16 18:41 B-Natriuretic Peptide 232 pg/mL (0-100) H 12/31/16 18:41 Serum Total Protein 7.2 g/dL (6.0-8.3) 12/31/16 18:41 Albumin 2.7 g/dL (3.5-5.0) L 12/31/16 18:41 Globulin 4.5 g/dL (2.4-3.5) H 12/31/16 18:41 Albumin/Globulin Ratio 0.6 (1.1-2.2) L 12/31/16 18:41 Urine Color Yellow (Yellow) 12/31/16 19:09 Urine Clarity Slightly Hazy (Clear) 12/31/16 19:09 Urine pH 5.5 pH Units (5.0-8.0) 12/31/16 19:09 Ur Specific [place] 1.020 (1.010-1.025) 12/31/16 19:09 Urine Protein 100 mg/dL (Neg-Trace) H 12/31/16 19:09 Urine Glucose (UA) Normal mg/dL (Normal) 12/31/16 19:09 Urine Ketones Negative mg/dL (Negative) 12/31/16 19:09 Urine Blood Negative (Negative) 12/31/16 19:09 Urine Nitrite Negative (Negative) 12/31/16 19:09 Urine Bilirubin Negative (Negative) 12/31/16 19:09 Urine Urobilinogen Normal mg/dL (Normal) 12/31/16 19:09 Ur Leukocyte Esterase Negative (Negative) 12/31/16 19:09 Urine Microscopic RBC 3-5 per hpf (0-3) H 12/31/16 19:09 Urine Microscopic WBC 0-3 per hpf (0-3) 12/31/16 19:09 Ur Squamous Epith Cells Many per lpf (None-Few) H 12/31/16 19:09 Amorphous Sediment Moderate (Few) H 12/31/16 19:09 Urine Bacteria None Seen per hpf (None-Few) 12/31/16 19:09 Hyaline Casts Few per lpf (None-Few) 12/31/16 19:09 Granular Casts Few per lpf (None Seen) H 12/31/16 19:09 Urine Yeast Test Not Performed 12/31/16 19:09 Ur Culture Indicated? NO (NO) 12/31/16 19:09 Impressions Chest X-Ray 12/31/16 18:33 IMPRESSION: Endotracheal tube with tip approximately 1.7 cm from the kia. Tip is angled toward the right. This may be related to patient head positioning. Small left pleural effusion. Improvement in left basilar opacity. Air-filled loops of bowel in the upper abdomen which appear prominent. Consider further evaluation with dedicated abdominal radiographs. D/ / Anna Sellers MD / Anna Sellers MD Interpreting Provider: Anna Sellers MD X-Ray 12/31/16 19:40 IMPRESSION: 1. Enteric tube coiled in the gastric fundus. 2. Nonspecific bowel gas pattern compatible with ileus. 3. Bilateral pleural effusions. D/ / Maco Castelan MD / Maco Castelan MD Interpreting Provider: Maco Castelan MD - ABG Interpretation ABG results: 12/31/16 19:45 ABG pH 7.31 L ABG pCO2 42 ABG pO2 281 H ABG HCO3 21.1 ABG Total CO2 22.4 ABG O2 Saturation 100 H ABG Base Excess -4.9 L
[2016-12-31 21:20] LABS: Ionized Calcium 1.15 mmol/L (1.15-1.35)
[2016-12-31] MEDS: 0.9 % Sodium Chloride 1,000 ML IVC SCH (21:33)
[2016-12-31] MEDS: Insulin LISPRO 300 UNITS/3 ML VIAL SQ SCH (21:34)
[2016-12-31] MEDS: Meropenem 1,000 MG in 0.9 % Sodium Chloride Mini Bag 100 ML IVPB SCH (21:35)
[2016-12-31] MEDS: Calcium Gluconate 1,000 MG in D5% in Water 100 ML IVPB PRN (21:36)
[2016-12-31] MEDS: Magnesium Sulfate 2 GM in D5% in Water 100 ML IVPB PRN (21:38)
[2016-12-31] MEDS: Chlorhexidine Rinse 15 ML MOUTHWASH MM SCH (21:39)
[2016-12-31] MEDS: Lacri-Lube 3.5 GM TUBE BOTH EYES SCH ×2 (21:39→23:58)
[2016-12-31] MEDS: Nystatin SUSP 5 ML UD.LIQ PO SCH (21:39)
[2016-12-31] MEDS: Pantoprazole 40 MG VIAL IVPB SCH (21:39)
[2016-12-31] MEDS: Docusate Oral Soln 100 MG/10 ML UDC GTUBE SCH (21:40)
[2016-12-31 21:49] LABS: Prolactin 8.36 ng/mL (3.46-19.40)
[2016-12-31] MEDS ORDERED: Lidocaine -MPF 1% 2 ML VIAL ID PRN (22:08)
[2016-12-31] MEDS: MethylPREDNISolone 40 MG/ML VIAL IVP SCH (23:15)
[2016-12-31] MEDS: *HR* Heparin 5,000 UNIT/ML VIAL SQ SCH (23:15)
[2016-12-31] MEDS: Clindamycin 600 MG/50 ML 600 MG/50 ML IV.SOLN IVPB SCH (23:15)
[2017-01-01] MEDS ORDERED: 0.9 % Sodium Chloride 500 ML IVC ONE (00:03)
[2017-01-01] MEDS: Insulin LISPRO 300 UNITS/3 ML VIAL SQ SCH ×7 (00:12→23:52)
[2017-01-01] MEDS: Magnesium Sulfate 2 GM in D5% in Water 100 ML IVPB PRN (00:12)
[2017-01-01] MEDS: 0.9 % Sodium Chloride 1,000 ML IVC SCH ×2 (01:36→05:23)
[2017-01-01] MEDS: Meropenem 1,000 MG in 0.9 % Sodium Chloride Mini Bag 100 ML IVPB SCH ×3 (04:27→19:28)
[2017-01-01] MEDS: Lacri-Lube 3.5 GM TUBE BOTH EYES SCH ×6 (04:28→23:51)
[2017-01-01 04:33] LABS: INR 1.5
[2017-01-01 04:36] LABS: Basophils % 0.1 %; Hematocrit 30.3 % (37.5-50.1); Hemoglobin 9.3 g/dL (12.9-16.9); Lymphocytes # 0.2 K/mcL (0.6-4.6); Lymphocytes % 2.5 %; Mean Corpuscular HGB Conc 30.7 g/dL (31.6-35.5); Mean Corpuscular Hemoglobin 31.7 pg (28.0-33.3); Mean Corpuscular Volume 103.4 fL (83.0-100.0); Mean Platelet Volume 10.7 fL (9.4-12.4); Monocytes # 0.6 K/mcL (0.0-1.3); Monocytes % 6.6 %; Platelet Count 121 K/mcL (140-400); Red Blood Count 2.93 M/mcL (4.19-5.50); Red Cell Distribution Width 15.2 % (11.5-14.5); Segmented Neutrophils % 88.8 %
[2017-01-01 04:38] LABS: Ionized Calcium 1.26 mmol/L (1.15-1.35)
[2017-01-01 04:47] LABS: BUN/Creatinine Ratio 26 (6-26); Blood Urea Nitrogen 39 mg/dL (8-26); Calcium 8.4 mg/dL (8.6-10.8); Carbon Dioxide 20 mEq/L (19-29); Chloride 122 mEq/L (98-109); Glucose 132 mg/dL (70-99); Magnesium 2.3 mg/dL (1.6-2.6); Osmolality,Calculated 317 (280-300); Potassium 2.9 mEq/L (3.5-4.5); Sodium 148 mEq/L (136-145); eGFR For African Americans 55 (> 60); eGFR For Non-African Americans 45 (> 60)
[2017-01-01 05:02] LABS: Platelet Estimate Decreased (Normal)
[2017-01-01 05:06] LABS: Phosphorous < 0.7 mg/dL (2.3-4.7)
[2017-01-01 05:21] LABS: ABG Base Excess -10.8 mEq/L (-2.0 to 3.0); ABG HCO3 15.3 mEQ/L (21-27); ABG Oxygen Saturation 84 % (95-98); ABG PCO2 34 mmHg (35-45); ABG PH 7.26 pH Units (7.32-7.45); ABG PO2 56 mmHg (85-104); ABG TCO2 16.3 mEq/L (20-26); Blood Gas FiO2 70 %
[2017-01-01] MEDS: Norepinephrine 4 MG in D5% in Water 250 ML IVC SCH ×2 (05:52→14:22)
[2017-01-01] MEDS: MethylPREDNISolone 40 MG/ML VIAL IVP SCH ×2 (05:55→11:38)
[2017-01-01] MEDS: Clindamycin 600 MG/50 ML 600 MG/50 ML IV.SOLN IVPB SCH (06:18)
[2017-01-01] MEDS ORDERED: Sodium Bicarbonate 100 MEQ in 0.45 % Sodium Chloride 1,000 ML IVC SCH (06:30)
[2017-01-01 06:32] LABS: Hematocrit 29.5 % (37.5-50.1)
[2017-01-01 06:40] LABS: Fibrinogen 456 mg/dL (169-393)
[2017-01-01 06:45] LABS: Albumin/Globulin Ratio 0.7 (1.1-2.2); Bilirubin,Direct 0.3 mg/dL (0.0-0.5); Bilirubin,Indirect 0.3 mg/dL (0.0-1.2); Bilirubin,Total 0.6 mg/dL (0.2-1.2); Globulin 3.1 g/dL (2.4-3.5)
[2017-01-01 06:46] LABS: Albumin 2.1 g/dL (3.5-5.0); Total Protein 5.2 g/dL (6.0-8.3)
[2017-01-01 06:49] LABS: D-Dimer 4038 ng/mLFEU (0-500)
[2017-01-01] MEDS: FentaNYL (PF) 1,000 MCG in 0.9 % Sodium Chloride 80 ML IVC PRN ×2 (07:29→19:27)
[2017-01-01] MEDS: *HR* Heparin 5,000 UNIT/ML VIAL SQ SCH ×3 (07:32→23:51)
[2017-01-01] MEDS: Pantoprazole 40 MG VIAL IVPB SCH (07:32)
[2017-01-01] MEDS: Chlorhexidine Rinse 15 ML MOUTHWASH MM SCH ×2 (07:32→19:28)
[2017-01-01] MEDS: Docusate Oral Soln 100 MG/10 ML UDC GTUBE SCH ×2 (07:32→19:29)
[2017-01-01] MEDS: Nystatin SUSP 5 ML UD.LIQ PO SCH ×4 (07:32→19:28)
[2017-01-01] MEDS ORDERED: Vancomycin (wt based) 1,000 MG VIAL IV ONE (08:00)
[2017-01-01] MEDS ORDERED: Clindamycin 600 MG/50 ML 600 MG/50 ML IV.SOLN IVPB SCH (08:00)
[2017-01-01] MEDS ORDERED: Vancomycin 1,750 MG in D5% in Water 500 ML IVPB ONE (08:17)
[2017-01-01] MEDS ORDERED: 0.9 % Sodium Chloride 500 ML ONE (08:28)
--- NOTE | 2017-01-01 10:35 | Pulmonology Progress Note ---
Date of Encounter: 01/01/17 Time of Encounter: 07:15 Assessment and Plan (1) Septic shock Current Visit: Yes Status: Acute Current shock state appears more consistent with distributive shock. Suspect most likely cause of his sepsis. However, infectious agent is not identified. Sputum and blood cultures are pending. Currently receiving empiric antibiosis with meropenem. Gave Sebastien loading dose this morning for history of MRSA infection. Currently on norepinephrine drip. Evaluation of IVC and ultrasound appearance of RV suggests the patient would not be volume responsive at this point. Plan to continue with vasopressors and judicious use of further IV fluid. Reevaluate volume responsiveness on subsequent exams today. (2) Acute respiratory failure, unspecified whether with hypoxia or hypercapnia Current Visit: Yes Status: Acute Acute respiratory failure. Cause uncertain, but could be related to aspiration event. Would also consider pneumonia, but at this point patient is showing no clear indicators of infection. Patient now intubated, oxygenating and ventilating well. Continue mechanical ventilation with lung protective strategy. Wean mechanical ventilation as tolerated. Qualifiers: Respiratory failure complication: hypoxia Qualified Code(s): J96.01 - Acute respiratory failure with hypoxia (3) Ileus, unspecified Current Visit: Yes Status: Acute Hypoactive bowel sounds with abdominal gas appearance consistent with ileus on KUB. Keep nothing by mouth. OG tube in place and continue low intermittent suction. (4) Aspiration into respiratory tract Current Visit: Yes Status: Acute Description of antecedent events could be consistent with an aspiration event. No focal infiltrate on chest x-ray. No evidence of aspiration pneumonia at this point. However, patient will remain on empiric antibiosis pending further clarification of etiology of his shock. 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 Examination of the wound shows a small area with serous-appearing exudate but no purulence, dehiscence. Qualifiers: Encounter type: subsequent encounter Qualified Code(s): T81.89XD - Other complications of procedures, not elsewhere classified, subsequent encounter (6) CKD (chronic kidney disease) stage 3, GFR 30-59 ml/min Current Visit: Yes Status: Chronic Report history of stage III CKD daily. Currently oliguric. No indication for emergent dialysis at this point. (7) CAD (coronary artery disease), [place] coronary artery Current Visit: Yes Status: Chronic Significant history of coronary disease. Status post CABG. Transthoracic echo performed at bedside this morning. Mild elevation in serum troponin. No evidence of acute ischemic, thrombotic event. Suspect troponin elevation is related to supply demand mismatch and poor renal clearance. Trend troponins this afternoon. Qualifiers: [place] vs. 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 Unlikely that current shock state is due to graft failure. (9) Lactic acidemia Current Visit: Yes Status: Acute Most likely type B lactic acidosis secondary to distributive shock. Initial serum lactate 2.7 increased to 4.4 following admission to MICU. Plan to trend lactate as a marker of effectiveness of resuscitation. Subjective Principal diagnosis: Respiratory failure Interval history: 86-year-old male admitted last night for acute respiratory failure. Patient was intubated in the ED for suspected aspiration event. Following intubation, patient known to be hypertensive. Patient initiated on norepinephrine drip. Initial serum lactate drawn in ED recorded at 2.7. Follow-up lactate increased to 4.4. Patient transferred to ICU from EGD without further change in status. Objective PUL Vital signs: Last Vital Signs Temp 99.2 F 01/01/17 07:23 Pulse 93 01/01/17 10:00 Resp 19 01/01/17 10:00 BP 129/52 01/01/17 10:00 Pulse Ox 97 01/01/17 10:00 General appearance: asleep Eyes: nonicteric Effort: other (Intubated with mechanical ventilation) Auscultation: bilateral: other (Bilateral coarse breath sounds without adventitious sounds) Cardiovascular: other (Distant lung sounds. No MRG appreciated. Tachycardic.) Gastrointestinal: hypoactive bowel sounds, soft Integumentary: other (Stage I and 2 decubitus ulcers) Extremities: no cyanosis, no edema Gait: other (Cannot be assessed. Sedated on mechanical ventilation.) other (Cannot be assessed) Ventilator Settings Ventilator Settings: Ventilator Settings, Last 8 Hours Ventilator Mode VC+ Ventilator Mode VC+ Ventilator Mode VC+ Ventilator Mode VC+ Ventilator Mode VC+ Ventilator Mode VC+ Ventilator Mode VC+ Ventilator Mode VC+ Ventilator Mode VC+ Ventilator Mode VC+ Ventilator Mode VC+ Ventilator Tidal Volume 500 Setting Ventilator Tidal Volume 500 Setting Ventilator Tidal Volume 500 Setting Ventilator Tidal Volume 500 Setting Ventilator Tidal Volume 500 Setting Ventilator Tidal Volume 500 Setting Ventilator Tidal Volume 500 Setting Ventilator Tidal Volume 500 Setting Ventilator Tidal Volume 500 Setting Ventilator Tidal Volume 500 Setting Ventilator Tidal Volume 500 Setting Ventilator Respiratory Rate 524 Setting Ventilator Respiratory Rate 12 Setting Ventilator Respiratory Rate 12 Setting Ventilator Respiratory Rate 12 Setting Ventilator Respiratory Rate 12 Setting Ventilator Respiratory Rate 12 Setting Ventilator Respiratory Rate 12 Setting Ventilator Respiratory Rate 12 Setting Ventilator Respiratory Rate 12 Setting Ventilator Respiratory Rate 12 Setting Ventilator Respiratory Rate 12 Setting Actual Respiratory Rate 18 Actual Respiratory Rate 18 Actual Respiratory Rate 14 Actual Respiratory Rate 16 Actual Respiratory Rate 12 Actual Respiratory Rate 12 Actual Respiratory Rate 12 Actual Respiratory Rate 12 Actual Respiratory Rate 12 Positive End Expiratory 5 Pressure Positive End Expiratory 5 Pressure Positive End Expiratory 5 Pressure Positive End Expiratory 5 Pressure Positive End Expiratory 5 Pressure Positive End Expiratory 5 Pressure Positive End Expiratory 5 Pressure Positive End Expiratory 5 Pressure Positive End Expiratory 5 Pressure Positive End Expiratory 5 Pressure Positive End Expiratory 5 Pressure Peak Inspiratory Airway 31 Pressure Peak Inspiratory Airway 27 Pressure Peak Inspiratory Airway 22 Pressure Peak Inspiratory Airway 21 Pressure Peak Inspiratory Airway 21 Pressure Peak Inspiratory Airway 23 Pressure Peak Inspiratory Airway 26 Pressure Peak Inspiratory Airway 25 Pressure Peak Inspiratory Airway 24 Pressure Results - Laboratory Findings CBC and BMP: 01/01/17 06:20 01/01/17 03:30 ABG ABG pH 7.26 pH Units (7.32-7.45) L 01/01/17 05:06 ABG pCO2 34 mmHg (35-45) L 01/01/17 05:06 ABG pO2 56 mmHg (85-104) L 01/01/17 05:06 ABG O2 Saturation 84 % (95-98) L 01/01/17 05:06 PT/INR, D-dimer PT 16.0 Seconds (9.4-12.1) H 01/01/17 03:30 D-Dimer 4038 ng/mLFEU (0-500) H 01/01/17 06:20 Abnormal lab findings: Abnormal lab results RBC 2.93 M/mcL (4.19-5.50) L 01/01/17 03:30 Hgb 9.0 g/dL (12.9-16.9) L 01/01/17 06:20 Hct 29.5 % (37.5-50.1) L 01/01/17 06:20 MCV 103.4 fL (83.0-100.0) H 01/01/17 03:30 MCHC 30.7 g/dL (31.6-35.5) L 01/01/17 03:30 RDW 15.2 % (11.5-14.5) H 01/01/17 03:30 Plt Count 121 K/mcL (140-400) L 01/01/17 03:30 Lymphocytes # 0.2 K/mcL (0.6-4.6) L 01/01/17 03:30 Platelet Estimate Decreased (Normal) 01/01/17 03:30 PT 16.0 Seconds (9.4-12.1) H 01/01/17 03:30 Fibrinogen 456 mg/dL (169-393) H 01/01/17 06:20 D-Dimer 4038 ng/mLFEU (0-500) H 01/01/17 06:20 ABG pH 7.26 pH Units (7.32-7.45) L 01/01/17 05:06 ABG pCO2 34 mmHg (35-45) L 01/01/17 05:06 ABG pO2 56 mmHg (85-104) L 01/01/17 05:06 ABG HCO3 15.3 mEQ/L (21-27) L 01/01/17 05:06 ABG Total CO2 16.3 mEq/L (20-26) L 01/01/17 05:06 ABG O2 Saturation 84 % (95-98) L 01/01/17 05:06 ABG Base Excess -10.8 mEq/L (-2.0 to 3.0) L 01/01/17 05:06 Sodium 148 mEq/L (136-145) H 01/01/17 03:30 Potassium 2.9 mEq/L (3.5-4.5) L 01/01/17 03:30 Chloride 122 mEq/L (98-109) H 01/01/17 03:30 BUN 39 mg/dL (8-26) H 01/01/17 03:30 Creatinine 1.48 mg/dL (0.72-1.25) H 01/01/17 03:30 Est GFR ( Amer) 55 (> 60) L 01/01/17 03:30 Est GFR (Non-Af Amer) 45 (> 60) L 01/01/17 03:30 Glucose 132 mg/dL (70-99) H 01/01/17 03:30 POC Glucose 338 (58-89) H 01/01/17 00:11 Hemoglobin A1c 6.3 % (-5.6) H 12/31/16 18:41 Calculated Osmolality 317 (280-300) H 01/01/17 03:30 Lactic Acid 4.4 mmol/L (0.5-2.2) H* 01/01/17 05:10 Calcium 8.4 mg/dL (8.6-10.8) L 01/01/17 03:30 Phosphorus < 0.7 mg/dL (2.3-4.7) L* D 01/01/17 03:30 Lactate Dehydrogenase 129 Units/L (159-327) L 01/01/17 06:20 Troponin I 0.04 ng/mL (0-0.03) H* 01/01/17 03:30 C-Reactive Protein 150 mg/L (Less than 5) H 12/31/16 21:04 B-Natriuretic Peptide 232 pg/mL (0-100) H 12/31/16 18:41 Serum Total Protein 5.2 g/dL (6.0-8.3) L D 01/01/17 06:20 Albumin 2.1 g/dL (3.5-5.0) L D 01/01/17 06:20 Albumin/Globulin Ratio 0.7 (1.1-2.2) L 01/01/17 06:20 Urine Protein 100 mg/dL (Neg-Trace) H 12/31/16 19:09 Urine Microscopic RBC 3-5 per hpf (0-3) H 12/31/16 19:09 Ur Squamous Epith Cells Many per lpf (None-Few) H 12/31/16 19:09 Amorphous Sediment Moderate (Few) H 12/31/16 19:09 Granular Casts Few per lpf (None Seen) H 12/31/16 19:09 - Microbiology Findings Microbiology Findings: Microbiology, Last 48 Hours 01/01/17 05:51 Sputum Culture - Preliminary Sputum - Clinical Findings Intake & Output: Intake & Output 12/31/16 01/01/17 01/01/17 23:59 07:59 15:59 Intake Total 300 / 300 3419 / 3419 573 / 573 Output Total 75 / 75 325 / 325 Balance 225 / 225 3094 / 3094 573 / 573 - VTE Documentation of Mechanical Device: Intermittent pneumatic compression device Consult Discharge Plan - Plan Referrals: Tesfaye Brock DO [Primary Care Provider] - - Attending Attestation [employer]ESSING: Reported baseline dementia with unknown baseline mental status. Patient currently sedated with propofol and fentanyl. Cardiovascular: Hypotension and shock. Most likely distributive. IVC showed minimal respiratory variation on bedside transthoracic echo. LV did not appear hyperdynamic. Unlikely that shock stte will be volume responsive at this point. Plan to reevaluate physiologic markers for eval responsiveness throughout the day today. Continue with norepinephrine drip. If norepinephrine does require increases we will add vasopressin. Plan for judicious use of IV fluid at this point. Pulmonary: Respiratory failure of uncertain etiology. Patient is NAD. Possible aspiration event but no clear findings on chest x-ray to support this. Possibly related to shock state from another source. Continue with nonproductive ventilation. Appearance of new change in right lower field consistent with pleural effusion. Suspect related to volume resuscitation. Nephrology: History of CKD stage III. Currently oliguric. Oliguria most likely related to shock state. GI: Suspected ileus. Continue with bowel rest, nothing by mouth, OG tube to low intermittent suction. ID: Presentation consistent with septic shock although source remains unclear. Possibly pulmonary source but presentation not entirely consistent with pneumonia. Cover broadly with meropenem and vancomycin. Reported history of MRSA infection. Vancomycin dose given this morning. Appreciate pharmacy assistance for subsequent dosing. 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 However it is noteworthy that all 3 cell lines decreased at this time and more likely represents delusional effect presumably from volume resuscitation in ED. Hold PRBC transfusion at this point in the absence of any signs of bleeding. Endo: Mild hyperglycemia. Below 180 mg/dL. No indication for insulin therapy. Hypertensive but responding to vasopressor medications so unlikely adrenal insufficiency. No acute issues. Musculoskeletal: Several decubitus ulcers in various stages as documented in nursing notes. Disposition: Patient remained MICU. Total critical care time 90 minutes
[2017-01-01 10:44] LABS: ABG Base Excess -6.6 mEq/L (-2.0 to 3.0); ABG HCO3 18.1 mEQ/L (21-27); ABG Oxygen Saturation 95 % (95-98); ABG PCO2 32 mmHg (35-45); ABG PH 7.36 pH Units (7.32-7.45); ABG PO2 76 mmHg (85-104); ABG TCO2 19.1 mEq/L (20-26); Blood Gas FiO2 50 %; Blood Gas PEEP 10 cm H2O; Blood Gas Respiration Rate 12; Blood Gas VT 500 cc
--- NOTE | 2017-01-01 11:07 | Procedure Note ---
Date of procedure: 01/01/17 Pre-op diagnosis: Shock Post-op diagnosis: same Procedure: Informed consent obtained by telephone from patient's spouse. Final timeout performed patient identified by phone name and date of . Procedure and site were verified. The right subclavian axis point was prepped and draped in the usual sterile fashion. Local anesthetic provided with 1% lidocaine without epinephrine. The finder needle was inserted through the right clavicle and guided inferiorly. I flash of blood was obtained and the wire was easily advanced. Triple-lumen central venous catheter was inserted and secured with good blood flow in all ports. The catheter was secured with 2 sutures. Postprocedure chest x-ray obtained which showed the tip within the right atrium. The catheter was withdrawn approximately 2 cm and repeat chest x-ray showed good position with no evidence of pneumothorax. The insertion site was dressed with sterile OpSite. Anesthesia: IV sedation (Propofol and fentanyl drip on mechanical ventilation.) Estimated blood loss (cc): 5 (<5ml) IV fluids (cc): 0 Pathology: none sent Condition: critical Disposition: ICU
--- NOTE | 2017-01-01 11:10 | Procedure Note ---
Date of procedure: 01/01/17 Pre-op diagnosis: Shock Post-op diagnosis: same Procedure: Informed consent obtained by phone from patient's spouse. Final timeout performed patient identified by full name and date of . Second procedure were verified. The left radial artery was easily palpated. The site was prepped and draped in usual sterile fashion. Arterial catheter was inserted with robust fashion blood. Guidewire was advanced easily. Arterial catheter advanced over the guidewire and the guidewire was removed and pulsatile blood was returned. Catheter was attached to her to the transducer. Secured in place with 4-0 suture and dressed with sterile dressing. Anesthesia: IV sedation (Propofol and fentanyl drip for mechanical ventilation.) Surgeon: Amado Gonzalez Estimated blood loss (cc): 0 (<5ml) Pathology: none sent Condition: critical Disposition: ICU
[2017-01-01 16:35] LABS: Hematocrit 28.7 % (37.5-50.1); Hemoglobin 9.4 g/dL (12.9-16.9)
[2017-01-01 17:45] LABS: Calcium 8.1 mg/dL (8.6-10.8)
[2017-01-01 18:37] LABS: Phosphorous 4.3 mg/dL (2.3-4.7)
[2017-01-02 04:06] LABS: Red Cell Distribution Width 15.7 % (11.5-14.5)
[2017-01-02 04:07] LABS: Hematocrit 26.9 % (37.5-50.1); Hemoglobin 8.7 g/dL (12.9-16.9); Mean Corpuscular HGB Conc 32.3 g/dL (31.6-35.5); Mean Corpuscular Hemoglobin 31.6 pg (28.0-33.3); Mean Corpuscular Volume 97.8 fL (83.0-100.0); Mean Platelet Volume 10.6 fL (9.4-12.4); Platelet Count 130 K/mcL (140-400); Red Blood Count 2.75 M/mcL (4.19-5.50)
[2017-01-02 04:10] LABS: Ionized Calcium 1.11 mmol/L (1.15-1.35)
[2017-01-02 04:23] LABS: Calcium 8.1 mg/dL (8.6-10.8); Phosphorous 5.1 mg/dL (2.3-4.7)
[2017-01-02 04:28] LABS: ABG Base Excess -5.3 mEq/L (-2.0 to 3.0); ABG HCO3 20.7 mEQ/L (21-27); ABG Oxygen Saturation 99 % (95-98); ABG PCO2 42 mmHg (35-45); ABG PO2 127 mmHg (85-104)
[2017-01-02 04:29] LABS: Blood Gas FiO2 50 %
[2017-01-02] MEDS: Meropenem 1,000 MG in 0.9 % Sodium Chloride Mini Bag 100 ML IVPB SCH ×2 (04:30→16:01)
[2017-01-02] MEDS: Insulin LISPRO 300 UNITS/3 ML VIAL SQ SCH ×5 (04:31→20:15)
[2017-01-02] MEDS: Lacri-Lube 3.5 GM TUBE BOTH EYES SCH ×5 (04:31→20:14)
[2017-01-02 04:46] LABS: Lymphocytes # 1.1 K/mcL (0.6-4.6); Monocytes # 1.6 K/mcL (0.0-1.3); Neutrophils # 23.5 K/mcL (1.6-8.9); Platelet Estimate Slight Decrease (Normal)
[2017-01-02] MEDS: Chlorhexidine Rinse 15 ML MOUTHWASH MM SCH ×2 (07:09→20:14)
[2017-01-02] MEDS: Nystatin SUSP 5 ML UD.LIQ PO SCH ×2 (07:10→11:43)
[2017-01-02] MEDS: *HR* Heparin 5,000 UNIT/ML VIAL SQ SCH ×2 (07:10→15:37)
[2017-01-02] MEDS: Docusate Oral Soln 100 MG/10 ML UDC GTUBE SCH ×2 (07:10→20:14)
[2017-01-02] MEDS: Pantoprazole 40 MG VIAL IVPB SCH (07:10)
[2017-01-02] MEDS: FentaNYL (PF) 1,000 MCG in 0.9 % Sodium Chloride 80 ML IVC PRN ×2 (08:09→21:56)
[2017-01-02] MEDS: Vancomycin 1,250 MG in D5% in Water 250 ML IVPB SCH (08:16)
--- NOTE | 2017-01-02 08:57 | ECHO - Doppler Report ---
Echocardiogram Name: Elliot Mccoy Date of Study: 01/01/2017 Date: 1930 Ht: 74.0 in Medical Record#: [id number] Age: 86 Wt: 185.0 lb Gender: Male BSA: 2.1 Order #: [id number] Location: [facility] Room #: IC03 Reading Physician: Jadyn Jacobo DO Baker Test: Lazara Gerardo RDCS, RVT Ordering Physician: Hayden Mayer MD Primary Physician: Jhonatan Brock DO Indications: Acute Coronary Syndrome, Sepsis Impressions: Technically challenging study. LV systolic function appears normal, with atypical septal motion, in the PLAX view. It is not well visualized in other views. RV is not well visualized. No significant valve abnormality. Consider repeat study when clinical status improves. Left Ventricular Wall Motion: Rest Echo Findings The apex, apical inferior, mid inferior, basal inferior, apical anterior, mid anterior, basal anterior, apical septal, mid inferior septal, basal inferior septal, apical lateral, mid anterior lateral and basal anterior lateral cordova were not visualized. All other wall segments showed normal motion. Findings: Study Quality * Technically sub-optimal due to clinical status. ECG Findings * Normal sinus rhythm. Left Atrium * Mildly dilated left atrium. Mitral Valve * Normal mitral valve structure. * No mitral stenosis. * Trace mitral regurgitation. Aortic Valve * No aortic regurgitation. * Trileaflet aortic valve. * Mildly calcified aortic valve leaflets. * Suboptimal Doppler interrogation. Aorta * Normally sized aortic root. * Normal ascending aortic root size for body habitus. Tricuspid Valve * Tricuspid valve not well visualized. * Trace tricuspid regurgitation. Pulmonic Valve * Pulmonic valve is not well visualized. * No pulmonic regurgitation. * No pulmonic stenosis. Pulmonary Artery * Pulmonary artery not well visualized. Left Ventricle * Mild left ventricular diastolic dysfunction. * LV systolic function appears normal in the PLAX view but is not well visualized in other views. Right Ventricle * RV is not well visualized. Right Atrium * Normal right atrial size. Pericardium * There is no pericardial effusion present. Interatrial Septum * Interatrial septum not well evaluated. IVC * The IVC is not well evaluated. History Hypertension Diabetes Hypercholesteremia Family History of CAD History of CAD/PTCA Myocardial Infarction Coronary Artery Bypass Graft Congestive Heart Failure 09-20-2014 a Previous Echo was performed. Measurements: BP: 87/ 43 2D Normal Values RVIDd: 2.90 cm <2.7 cm IVSd: 1.20 cm 0.6 - 1.0 cm LVIDd: 5.30 cm 3.7 - 5.6 cm LVPWd: 1.10 cm 0.6 - 1.1 cm LA: 4.00 cm 2.0 - 4.0cm %FS: 13.20 cm >25 % LVOT Diam: 2.10 cm LA volume: 38 Mitral Valve Peak E:.52 m/sec Peak A:.87 m/sec E/A Ratio:0.6 Peak E' Lat Donovan:7.21 cm/s Peak E' Med Donovan:4.97 cm/s E/E' Lat Ratio:7.3 E/E' Med Ratio:10.5 Updated by Jadyn Jacobo on 01/02/2017 8:51:04 AM electronically signed on 01/02/2017 8:52:11 AM with status of Final Wall Motion Bhatia: 1=Normal, 2=Hypokinesis, 3=Akinesis, 4=Dyskinesis, 5=Aneurysmal, 6=Hyperkinetic, X=Not Visualized (Blank)=Missing
--- NOTE | 2017-01-02 09:28 | Electrocardiograph Report ---
[place] [id number] Test Date: 2016-12-31 Pat Name: Elliot Mccoy Department: 105 Room: [facility] Gender: M Driver Starting Gate: RADHA : 1930 Requested By: Forest James Order Number: [id number] Reading MD: Santana Hope MD Measurements Intervals [place] Rate: 104 P: 38 TN: 123 QRS: 34 QRSD: 97 T: 70 QT: 366 QTc: 426 Interpretive Statements SINUS TACHYCARDIA BASELINE ARTIFACT Electronically Signed On 01-02-2017 9:26:38 EDT by Santana Hope MD
--- NOTE | 2017-01-02 12:21 | Pulmonology Progress Note ---
<ReynoldNik Juancarlos - Last Filed: 01/02/17 14:28> Date of Encounter: 01/02/17 Time of Encounter: 07:30 Assessment and Plan (1) Septic shock Current Visit: Yes Status: Acute 1. Sepsis WBC 9.0 > 26.7, oliguria, ileus Source currently unknown; UA did not show UTI. Non-healing surgical wound cultured. Blood cultures pending. 01 Jan 2017: KUB: OG catheter tip projects over gastric body/fundus. Persistent colonic dilation. 01 Jan 2017: CXR: Right subclavian central line with tip in lower SVC. ET tube above kia. 01 Jan 2017: CXR: new right basilar opacity suspicious for pneumonia, stable small left pleural effusion with suspected new small right pleural effusion. Enteric tube tip within the stomach. 31 Dec 2016: KUB: Enteric tube coiled within gastric fundus. Nonspecific bowel gas pattern compatible with ileus. BL pleural effusion. - Continue empiric meropenem day 2, vancomycin day 3. - BP support with levophed 2. Acute respiratory failure Cause uncertain. Suspected related to aspiration event vs PNA. Patient intubated. Oxygenating and ventilating well with lung protective measures. 3. 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 15cm length x 3cm width x 1cm depth. Skin overlays pericardial sac; heartbeat visible below skin. Mostly well scarred tissue. Central granulation tissue with inferior eschar which produces pus. - Wound culture sent. - Wound care consulted. 4. Ileus Bowel sounds hypoactive. - NG tube remains in place on low intermittent suction. - Begin trickle tube feedings. 5. CAD s/p CABG. Mild elevation in troponin on Dec. No evidence of acute ischemic or thromobitic event. Suspect elevated troponin secondary to demand ischemia and poor renal clearance. 01 Jan 2017: Cardiac Echo: Suboptimal study. Mild LV diastolic dysfunction, LV systolic function appears normal. No pericardial effusion. 31 Dec 2016: EKG in ER: Sinus tachycardia. 6. Chronic CKD CKD stage III. Currently oliguric. - Continue monitoring. - IF worsens, will consult nephrology. 7. Hx CABG (2) Acute respiratory failure, unspecified whether with hypoxia or hypercapnia Current Visit: Yes Status: Acute Plan as above. Qualifiers: Respiratory failure complication: hypoxia Qualified Code(s): J96.01 - Acute respiratory failure with hypoxia (3) Nonhealing surgical wound Current Visit: No Status: Chronic Plan as above. Qualifiers: Encounter type: subsequent encounter Qualified Code(s): T81.89XD - Other complications of procedures, not elsewhere classified, subsequent encounter (4) Ileus, unspecified Current Visit: Yes Status: Acute Plan as above. (5) CAD (coronary artery disease), [place] coronary artery Current Visit: Yes Status: Chronic Plan as above. Qualifiers: [place] vs. transplanted heart: [place] heart Associated angina: with unspecified angina Qualified Code(s): I25.119 - Atherosclerotic heart disease of [place] coronary artery with unspecified angina pectoris (6) CKD (chronic kidney disease) stage 3, GFR 30-59 ml/min Current Visit: Yes Status: Chronic Plan as above. (7) Hx of CABG Current Visit: Yes Status: Chronic Plan as above. Subjective Principal diagnosis: Respiratory failure Interval history: Mr. Mccoy remains intubated. Appears comfortable. No acute events overnight. Objective PUL Vital signs: Last Vital Signs Temp 97.8 F 01/02/17 11:45 Pulse 72 01/02/17 12:00 Resp 12 01/02/17 12:00 BP 92/40 01/02/17 12:00 Pulse Ox 98 01/02/17 12:00 General appearance: no acute distress, other (intubated, sedated) Eyes: nonicteric ENT: oropharynx dry Neck: supple Auscultation: bilateral: diminished breath sounds Cardiovascular: regular rate and rhythm Gastrointestinal: hypoactive bowel sounds Integumentary: other (15cm caudad to cephalad remote post-op wound on patient's chest x 3cm wide x 1cm deep with inferior eschar expressing pus (cultured). Stage 1 sacral decubitis ulcer with surrounding deep tissue injury.) Extremities: no cyanosis, pink and warm, edema (trace bilateral pitting edema) Musculoskeletal: no deformities Ventilator Settings Ventilator Settings: Ventilator Settings, Last 8 Hours Ventilator Mode VC+ Ventilator Mode VC+ Ventilator Mode VC+ Ventilator Mode VC+ Ventilator Mode VC+ Ventilator Mode VC+ Ventilator Mode VC+ Ventilator Mode VC+ Ventilator Mode VC+ Ventilator Mode VC+ Ventilator Tidal Volume 500 Setting Ventilator Tidal Volume 500 Setting Ventilator Tidal Volume 500 Setting Ventilator Tidal Volume 500 Setting Ventilator Tidal Volume 500 Setting Ventilator Tidal Volume 500 Setting Ventilator Tidal Volume 500 Setting Ventilator Tidal Volume 500 Setting Ventilator Tidal Volume 500 Setting Ventilator Tidal Volume 500 Setting Ventilator Respiratory Rate 12 Setting Ventilator Respiratory Rate 12 Setting Ventilator Respiratory Rate 12 Setting Ventilator Respiratory Rate 12 Setting Ventilator Respiratory Rate 12 Setting Ventilator Respiratory Rate 12 Setting Ventilator Respiratory Rate 12 Setting Ventilator Respiratory Rate 12 Setting Ventilator Respiratory Rate 12 Setting Ventilator Respiratory Rate 12 Setting Actual Respiratory Rate 12 Actual Respiratory Rate 12 Actual Respiratory Rate 12 Actual Respiratory Rate 12 Actual Respiratory Rate 12 Actual Respiratory Rate 12 Actual Respiratory Rate 12 Actual Respiratory Rate 12 Actual Respiratory Rate 12 Actual Respiratory Rate 12 Positive End Expiratory 8 Pressure Positive End Expiratory 8 Pressure Positive End Expiratory 8 Pressure Positive End Expiratory 8 Pressure Positive End Expiratory 8 Pressure Positive End Expiratory 8 Pressure Positive End Expiratory 10 Pressure Positive End Expiratory 10 Pressure Positive End Expiratory 10 Pressure Positive End Expiratory 10 Pressure Peak Inspiratory Airway 25 Pressure Peak Inspiratory Airway 19 Pressure Peak Inspiratory Airway 24 Pressure Peak Inspiratory Airway 25 Pressure Peak Inspiratory Airway 24 Pressure Peak Inspiratory Airway 22 Pressure Peak Inspiratory Airway 27 Pressure Peak Inspiratory Airway 26 Pressure Peak Inspiratory Airway 25 Pressure Peak Inspiratory Airway 25 Pressure Results - Laboratory Findings CBC and BMP: 01/02/17 03:45 01/02/17 03:45 ABG ABG pH 7.30 pH Units (7.32-7.45) L 01/02/17 04:20 ABG pCO2 42 mmHg (35-45) 01/02/17 04:20 ABG pO2 127 mmHg (85-104) H 01/02/17 04:20 ABG O2 Saturation 99 % (95-98) H 01/02/17 04:20 PT/INR, D-dimer PT 16.0 Seconds (9.4-12.1) H 01/01/17 03:30 D-Dimer 4038 ng/mLFEU (0-500) H 01/01/17 06:20 Abnormal lab findings: Abnormal lab results WBC 26.7 K/mcL (4.3-11.1) H D 01/02/17 03:45 RBC 2.75 M/mcL (4.19-5.50) L 01/02/17 03:45 Hgb 8.7 g/dL (12.9-16.9) L 01/02/17 03:45 Hct 26.9 % (37.5-50.1) L 01/02/17 03:45 RDW 15.7 % (11.5-14.5) H 01/02/17 03:45 Plt Count 130 K/mcL (140-400) L 01/02/17 03:45 Band Neutrophils % 22.0 % (0-4) H 01/02/17 03:45 Metamyelocytes % 2.0 % (0) H 01/02/17 03:45 Neutrophils # 23.5 K/mcL (1.6-8.9) H 01/02/17 03:45 Monocytes # 1.6 K/mcL (0.0-1.3) H 01/02/17 03:45 Platelet Estimate Slight Decrease (Normal) L 01/02/17 03:45 PT 16.0 Seconds (9.4-12.1) H 01/01/17 03:30 Fibrinogen 456 mg/dL (169-393) H 01/01/17 06:20 D-Dimer 4038 ng/mLFEU (0-500) H 01/01/17 06:20 ABG pH 7.30 pH Units (7.32-7.45) L 01/02/17 04:20 ABG pO2 127 mmHg (85-104) H 01/02/17 04:20 ABG HCO3 20.7 mEQ/L (21-27) L 01/02/17 04:20 ABG O2 Saturation 99 % (95-98) H 01/02/17 04:20 ABG Base Excess -5.3 mEq/L (-2.0 to 3.0) L 01/02/17 04:20 Sodium 147 mEq/L (136-145) H 01/02/17 03:45 Chloride 119 mEq/L (98-109) H 01/02/17 03:45 BUN 50 mg/dL (8-26) H 01/02/17 03:45 Creatinine 1.99 mg/dL (0.72-1.25) H 01/02/17 03:45 Est GFR ( Amer) 39 (> 60) L 01/02/17 03:45 Est GFR (Non-Af Amer) 32 (> 60) L 01/02/17 03:45 Glucose 55 mg/dL (70-99) L 01/02/17 03:45 POC Glucose 148 (58-89) H 01/01/17 23:11 Hemoglobin A1c 6.3 % (-5.6) H 12/31/16 18:41 Calculated Osmolality 315 (280-300) H 01/02/17 03:45 Calcium 8.1 mg/dL (8.6-10.8) L 01/02/17 03:45 Ionized Calcium 1.11 mmol/L (1.15-1.35) L 01/02/17 03:45 Phosphorus 5.1 mg/dL (2.3-4.7) H 01/02/17 03:45 Lactate Dehydrogenase 129 Units/L (159-327) L 01/01/17 06:20 Troponin I 0.04 ng/mL (0-0.03) H* 01/01/17 03:30 C-Reactive Protein 150 mg/L (Less than 5) H 12/31/16 21:04 B-Natriuretic Peptide 232 pg/mL (0-100) H 12/31/16 18:41 Serum Total Protein 5.2 g/dL (6.0-8.3) L D 01/01/17 06:20 Albumin 2.1 g/dL (3.5-5.0) L D 01/01/17 06:20 Albumin/Globulin Ratio 0.7 (1.1-2.2) L 01/01/17 06:20 Urine Protein 100 mg/dL (Neg-Trace) H 12/31/16 19:09 Urine Microscopic RBC 3-5 per hpf (0-3) H 12/31/16 19:09 Ur Squamous Epith Cells Many per lpf (None-Few) H 12/31/16 19:09 Amorphous Sediment Moderate (Few) H 12/31/16 19:09 Granular Casts Few per lpf (None Seen) H 12/31/16 19:09 - Microbiology Findings Microbiology Findings: Microbiology, Last 48 Hours 01/01/17 05:51 Sputum Culture - Final Sputum Strep agalactiae - (Group B) - Diagnostic Findings Chest x-ray: image reviewed - Clinical Findings Intake & Output: Intake & Output 01/01/17 01/02/17 01/02/17 23:59 07:59 15:59 Intake Total 399 / 399 260 / 260 413 / 413 Output Total 150 / 150 100 / 100 200 / 200 Balance 249 / 249 160 / 160 213 / 213 Weight 75.1 kg - VTE Documentation of Mechanical Device: Intermittent pneumatic compression device Consult Discharge Plan - Plan Referrals: Tesfaye Brock DO [Primary Care Provider] - <ProsperbogdanDanika locke Jim - Last Filed: 01/02/17 22:33> Date of Encounter: 01/02/17 Objective PUL Vital signs: Last Vital Signs Temp 96.2 F L 01/02/17 19:39 Pulse 74 01/02/17 22:00 Resp 19 01/02/17 22:00 BP 102/45 01/02/17 22:00 Pulse Ox 97 01/02/17 22:00 Ventilator Settings Ventilator Settings: Ventilator Settings, Last 8 Hours Ventilator Mode VC+ Ventilator Mode VC+ Ventilator Mode VC+ Ventilator Mode VC+ Ventilator Mode VC+ Ventilator Mode VC+ Ventilator Mode VC+ Ventilator Mode VC+ Ventilator Mode VC+ Ventilator Tidal Volume 500 Setting Ventilator Tidal Volume 500 Setting Ventilator Tidal Volume 500 Setting Ventilator Tidal Volume 500 Setting Ventilator Tidal Volume 500 Setting Ventilator Tidal Volume 500 Setting Ventilator Tidal Volume 500 Setting Ventilator Tidal Volume 500 Setting Ventilator Tidal Volume 500 Setting Ventilator Respiratory Rate 12 Setting Ventilator Respiratory Rate 12 Setting Ventilator Respiratory Rate 12 Setting Ventilator Respiratory Rate 12 Setting Ventilator Respiratory Rate 12 Setting Ventilator Respiratory Rate 12 Setting Ventilator Respiratory Rate 12 Setting Ventilator Respiratory Rate 12 Setting Ventilator Respiratory Rate 12 Setting Actual Respiratory Rate 19 Actual Respiratory Rate 14 Actual Respiratory Rate 18 Actual Respiratory Rate 18 Actual Respiratory Rate 15 Actual Respiratory Rate 18 Actual Respiratory Rate 12 Actual Respiratory Rate 12 Actual Respiratory Rate 12 Positive End Expiratory 8 Pressure Positive End Expiratory 8 Pressure Positive End Expiratory 8 Pressure Positive End Expiratory 8 Pressure Positive End Expiratory 8 Pressure Positive End Expiratory 8 Pressure Positive End Expiratory 8 Pressure Positive End Expiratory 8 Pressure Positive End Expiratory 8 Pressure Peak Inspiratory Airway 29 Pressure Peak Inspiratory Airway 27 Pressure Peak Inspiratory Airway 23 Pressure Peak Inspiratory Airway 29 Pressure Peak Inspiratory Airway 25 Pressure Peak Inspiratory Airway 27 Pressure Peak Inspiratory Airway 26 Pressure Peak Inspiratory Airway 28 Pressure Peak Inspiratory Airway 27 Pressure Results - Laboratory Findings CBC and BMP: 01/02/17 03:45 01/02/17 03:45 ABG ABG pH 7.30 pH Units (7.32-7.45) L 01/02/17 04:20 ABG pCO2 42 mmHg (35-45) 01/02/17 04:20 ABG pO2 127 mmHg (85-104) H 01/02/17 04:20 ABG O2 Saturation 99 % (95-98) H 01/02/17 04:20 PT/INR, D-dimer PT 16.0 Seconds (9.4-12.1) H 01/01/17 03:30 D-Dimer 4038 ng/mLFEU (0-500) H 01/01/17 06:20 Abnormal lab findings: Abnormal lab results WBC 26.7 K/mcL (4.3-11.1) H D 01/02/17 03:45 RBC 2.75 M/mcL (4.19-5.50) L 01/02/17 03:45 Hgb 8.7 g/dL (12.9-16.9) L 01/02/17 03:45 Hct 26.9 % (37.5-50.1) L 01/02/17 03:45 RDW 15.7 % (11.5-14.5) H 01/02/17 03:45 Plt Count 130 K/mcL (140-400) L 01/02/17 03:45 Band Neutrophils % 22.0 % (0-4) H 01/02/17 03:45 Metamyelocytes % 2.0 % (0) H 01/02/17 03:45 Neutrophils # 23.5 K/mcL (1.6-8.9) H 01/02/17 03:45 Monocytes # 1.6 K/mcL (0.0-1.3) H 01/02/17 03:45 Platelet Estimate Slight Decrease (Normal) L 01/02/17 03:45 PT 16.0 Seconds (9.4-12.1) H 01/01/17 03:30 Fibrinogen 456 mg/dL (169-393) H 01/01/17 06:20 D-Dimer 4038 ng/mLFEU (0-500) H 01/01/17 06:20 ABG pH 7.30 pH Units (7.32-7.45) L 01/02/17 04:20 ABG pO2 127 mmHg (85-104) H 01/02/17 04:20 ABG HCO3 20.7 mEQ/L (21-27) L 01/02/17 04:20 ABG O2 Saturation 99 % (95-98) H 01/02/17 04:20 ABG Base Excess -5.3 mEq/L (-2.0 to 3.0) L 01/02/17 04:20 Sodium 147 mEq/L (136-145) H 01/02/17 03:45 Chloride 119 mEq/L (98-109) H 01/02/17 03:45 BUN 50 mg/dL (8-26) H 01/02/17 03:45 Creatinine 1.99 mg/dL (0.72-1.25) H 01/02/17 03:45 Est GFR ( Amer) 39 (> 60) L 01/02/17 03:45 Est GFR (Non-Af Amer) 32 (> 60) L 01/02/17 03:45 Glucose 55 mg/dL (70-99) L 01/02/17 03:45 POC Glucose 148 (58-89) H 01/01/17 23:11 Hemoglobin A1c 6.3 % (-5.6) H 12/31/16 18:41 Calculated Osmolality 315 (280-300) H 01/02/17 03:45 Calcium 8.1 mg/dL (8.6-10.8) L 01/02/17 03:45 Ionized Calcium 1.11 mmol/L (1.15-1.35) L 01/02/17 03:45 Phosphorus 5.1 mg/dL (2.3-4.7) H 01/02/17 03:45 Lactate Dehydrogenase 129 Units/L (159-327) L 01/01/17 06:20 Troponin I 0.04 ng/mL (0-0.03) H* 01/01/17 03:30 C-Reactive Protein 150 mg/L (Less than 5) H 12/31/16 21:04 B-Natriuretic Peptide 232 pg/mL (0-100) H 12/31/16 18:41 Serum Total Protein 5.2 g/dL (6.0-8.3) L D 01/01/17 06:20 Albumin 2.1 g/dL (3.5-5.0) L D 01/01/17 06:20 Albumin/Globulin Ratio 0.7 (1.1-2.2) L 01/01/17 06:20 Urine Protein 100 mg/dL (Neg-Trace) H 12/31/16 19:09 Urine Microscopic RBC 3-5 per hpf (0-3) H 12/31/16 19:09 Ur Squamous Epith Cells Many per lpf (None-Few) H 12/31/16 19:09 Amorphous Sediment Moderate (Few) H 12/31/16 19:09 Granular Casts Few per lpf (None Seen) H 12/31/16 19:09 - Microbiology Findings Microbiology Findings: Microbiology, Last 48 Hours 01/01/17 05:51 Sputum Culture - Final Sputum Strep agalactiae - (Group B) - Clinical Findings Intake & Output: Intake & Output 01/02/17 01/02/17 01/02/17 07:59 15:59 23:59 Intake Total 260 / 260 604 / 604 246 / 246 Output Total 100 / 100 200 / 200 375 / 375 Balance 160 / 160 404 / 404 -129 / -129 - Attending Attestation I examined this patient and my medical decision-making was reviewed with the TOBACCO CLOTH RECLAIMER/PA/Advanced Practice Nurse/Resident Physician. I agree with the documented findings, disposition and treatment plan as described except to the extent set forth below. Patient remain on the ventilator and his baseline mental status is not clear to me. Not able to fully assess mental status and lower sedation as much as possible and head CT to be considered. Lowered PEEP on the ventilator and gradually to the point that will be able to do CPAP trial. It will be very challenging with his mental status and not having support from his chest wall to get him off the ventilator. Palliative care consult, since patient's chest wall will not tolerate CPR, code status changed to [id number], which is very appropriate in my view. Also, fluid bolus to try to get him off the vasopressors. Overall prognosis is very poor. Continue antibiotics. Critical care performed: Time is exclusive of separately billable procedures. Time includes: direct patient care, patient reassessment, coordination of patient care, interpretation of data (laboratory data, radiology data, and respiratory data), review of patient's medical records, medical consultation and documentation of patient care. Procedures excluded from critical care time: 35 minutes.
--- NOTE | 2017-01-02 12:41 | Palliative - Consult Note ---
Date of Encounter: 01/02/17 Time of Encounter: 10:30 - Assessment and Plan (1) Goals of care, counseling/discussion Current Visit: Yes Status: Acute Assessment and plan: Goals of care discussion with the patient's spouse-Bernie. Discussed history , physical exam, laboratory values, plan of care. Reviewed advanced directives. Mr. Campuzano does not have existing advanced directives. Discussed CODE STATUS options including full code, DNR-arrest, DNR-comfort care. At this time , plan is for the patient to remain full code. Discussed overall progression of chronic diseases complicated by acute problems. Mrs. Mccoy has made it very clear that her intentions are for him to remain FULL CODE. Mr. Mccoy has had a trach and a PEG in the past, so Ms. Mccoy is aware of the complexity of that outcome. Mrs. Mccoy is also agreeable to a PEG tube in the event the patient has severe dysphagia following this acute illness. She would like for him to return home with the care of [facility] upon discharge. eligibility services representative to follow. The palliative care team will sign off. Please re-consult if needed. (2) Aspiration pneumonia Current Visit: Yes Status: Acute Qualifiers: Aspiration pneumonia type: unspecified Laterality: unspecified laterality Lung location: unspecified part of lung Qualified Code(s): J69.0 - Pneumonitis due to inhalation of food and vomit (3) Acute respiratory failure, unspecified whether with hypoxia or hypercapnia Current Visit: Yes Status: Acute Qualifiers: Respiratory failure complication: hypoxia Qualified Code(s): J96.01 - Acute respiratory failure with hypoxia Palliative-CN HPI - Data of Consult Patient: new to practice Consult date: 01/02/17 Requesting Physician: Hayden Mayer Primary Care Provider: Tesfaye Brock, - Consult Narrative Palliative Care/Comfort Measures: Palliative care Reason for consult: Goals of Care History of present illness: Mr. Mccoy is a 86 year old male presenting to [facility] following an aspiration event in the home. He was intubated in the emergency department for airway protection and transferred to the ICU for further work-up and treatment. He has been started on ATB therapy for septic shock and acute respiratory failure. He required the use of vasopressor therapy for blood pressure support. A head CT was completed and negative for acute abnormalities, and KUB shows evidence of colonic dilation. The palliative care team was consulted to assist with goals of care planning. Mr. Mccoy has a history of dementia with a baseline of non-ambulatory and minimally verbal. He is cared for by his in the home and his PCP does home visits once a year. Mr. Mccoy has had a progressive weight loss over the past several years. Hospital documentation indicates about 20# over the past 2 years. Home health services provided by [facility]. He has had difficulty with wounds both on his chest (area of prior sternectomy), and buttocks. He follows with wound care services as needed. CC: Hayden Mayer Past Med Surg Social Fam HX - Past Medical History Source: old records reviewed, obtained from family Medical history: arthritis, COPD, coronary artery disease, dementia, diabetes, GERD, hyperlipidemia, hypertension, myocardial infarction, renal disease, other Psychiatric history: anxiety, depression, other - Past Surgical History Surgical History: coronary bypass (CABG), orthopedic, other (Lumbar spine surgery.), tracheostomy (Tracheostomy placement and takedown.), other ( Sternotomy redo 2 for wound dehiscence and secondary MRSA infection. Prior PEG tube placement for severe protein caloric malnutrition.) - Social History Smoking Status: Former smoker Smokeless Tobacco Status: No Alcohol use: none, unknown Drug use: none, unknown - Family History Mother Living Status: Hx Family Cardiac Disorders: Yes Medications and Allergies Aspirin Enteric Coated [Aspirin EC] 81 mg PO DAILY 03/14/16 [History] Citalopram [CeleXA] 40 mg PO DAILY 03/14/16 [History] Insulin DETEMIR [Levemir Flextouch] 10 unit SQ HS 03/14/16 [History] Metformin [Glucophage] 500 mg PO BIDWM 03/14/16 [History] Multivits,Ca,Min/Iron/FA/Lycop [Centrum Men's Tablet] 1 each PO DAILY 03/14/16 [ History] Potassium Chloride [K-Tab ER] 20 meq PO DAILY 03/14/16 [History] Quetiapine Fumarate [SEROquel] 12.5 mg PO HS 03/14/16 [History] Ferrous Sulfate [Iron] 325 mg PO DAILY 01/01/17 [History] Insulin ASPART [Novolog Flexpen] 0 unit SQ TID PRN 01/01/17 [History] Allergies cephalexin Adverse Reaction (Verified 01/01/17 12:50) Rash Penicillins Adverse Reaction (Verified 01/01/17 12:50) Swelling of Lip/Tongue/Throat ROS unobtainable: due to endotracheal tube, due to mental status Palliative Care-Exam - Constitutional Vitals: Temp Pulse Resp BP Pulse Ox 97.8 F 73 16 88/41 99 01/02/17 11:45 01/02/17 10:00 01/02/17 11:35 01/02/17 10:00 01/02/17 11:35 Exam: 86 year old male intubated, sedated, on mechanical ventilation in the ICU. - Head Head Exam: Present: atraumatic - Eye Eye exam: Present: EOMI - ENT ENT exam: Present: mucous membranes moist - Respiratory Respiratory exam: Present: CTAB. Absent: accessory muscle use, respiratory distress, wheezes, tachypnea - Cardiovascular Cardiovascular exam: Present: RRR - GI/Abdominal Exam GI/Abdominal exam: Present: normal bowel sounds, soft. Absent: tenderness - Catheter Type: Urethral ([place]) (scant urine output) - Extremities Exam Extremities exam: Absent: pedal edema - Neurological Exam Additional comments: eyes open, ventilation equipment tender hands-but not to command. - Skin Skin exam: Present: dry, warm. Absent: intact Additional comments: sternal wound with dressing intact, DTI noted to buttocks Internal Medicine - CN: Reslt - Labs CBC & Chem 7: 01/02/17 03:45 01/02/17 03:45 Labs: Short CBC 01/01/17 01/02/17 Range/Units 16:20 03:45 WBC 26.7 H D (4.3-11.1) K/mcL Hgb 9.4 L 8.7 L (12.9-16.9) g/dL Hct 28.7 L 26.9 L (37.5-50.1) % Plt Count 130 L (140-400) K/mcL Neutrophils # 23.5 H (1.6-8.9) K/mcL BMP 01/01/17 01/02/17 16:20 03:45 Sodium 146 H 147 H Potassium 4.0 D 4.0 Chloride 118 H 119 H Carbon Dioxide 18 L 19 BUN 44 H 50 H Creatinine 1.73 H 1.99 H Glucose 191 H 55 L Calcium 8.1 L 8.1 L - ABG Interpretation ABG results: ABG ABG pH 7.30 pH Units (7.32-7.45) L 01/02/17 04:20 ABG pCO2 42 mmHg (35-45) 01/02/17 04:20 ABG pO2 127 mmHg (85-104) H 01/02/17 04:20 ABG O2 Saturation 99 % (95-98) H 01/02/17 04:20 PT/INR, D-dimer PT 16.0 Seconds (9.4-12.1) H 01/01/17 03:30 D-Dimer 4038 ng/mLFEU (0-500) H 01/01/17 06:20 - Impressions Impressions KUB X-Ray 01/01/17 13:25 IMPRESSION: OG catheter tip projects over the gastric body/ fundus. Persistent colonic dilation. D/ / Derrell Banegas MD / Derrell Banegas MD Interpreting Provider: Derrell Banegas MD Head CT 01/02/17 11:00 IMPRESSION: No acute intracranial abnormality. If acute cerebral infarct is a clinical concern, an MRI is a more sensitive study. D/ / Mi Hwang Cha, MD / Mi Hwang Cha, MD Interpreting Provider: Mi Hwang Cha, MD Consult Discharge Plan - Plan Referrals: Tesfaye Brock DO [Primary Care Provider] - Palliative Quality Palliative Quality: Screen for Code Status: Yes, Screen for Goals of Care: Yes, Screen for Pain: Yes, If Pain Regimen Started, Initiate Bowel Regimen: NA, Screen for Nausea/Vomitting: Yes Code Status: 12/31/16 19:56 Resuscitation Status: Active [RES] Routine Comment: Resuscitation Status: Full Code
[2017-01-02] MEDS: Silvasorb 44.4 ML TUBE TP SCH (16:29)
[2017-01-03] MEDS: *HR* Heparin 5,000 UNIT/ML VIAL SQ SCH ×3 (00:48→16:43)
[2017-01-03 03:47] LABS: Basophils % 0.1 %; Lymphocytes % 3.2 %; Red Cell Distribution Width 15.9 % (11.5-14.5)
[2017-01-03 03:49] LABS: Hematocrit 25.8 % (37.5-50.1); Hemoglobin 8.3 g/dL (12.9-16.9); Immature Granulocytes % 1.1 % (0-4); Immature Platelets 5.5 % (1.1-6.1); Lymphocytes # 0.5 K/mcL (0.6-4.6); Mean Corpuscular HGB Conc 32.2 g/dL (31.6-35.5); Mean Corpuscular Hemoglobin 31.3 pg (28.0-33.3); Mean Corpuscular Volume 97.4 fL (83.0-100.0); Monocytes # 0.5 K/mcL (0.0-1.3); Monocytes % 3.2 %; Neutrophils # 13.8 K/mcL (1.6-8.9); Nucleated Red Blood Cells 0.1 /100 WBC (0); Platelet Count 101 K/mcL (140-400); Red Blood Count 2.65 M/mcL (4.19-5.50); Segmented Neutrophils % 92.4 %
[2017-01-03 03:50] LABS: Ionized Calcium 1.07 mmol/L (1.15-1.35)
[2017-01-03 03:58] LABS: Phosphorous 5.9 mg/dL (2.3-4.7); Potassium 3.6 mEq/L (3.5-4.5)
[2017-01-03 04:21] LABS: Platelet Estimate Slight Decrease (Normal)
[2017-01-03] MEDS: Lacri-Lube 3.5 GM TUBE BOTH EYES SCH ×6 (04:34→21:23)
[2017-01-03] MEDS: Calcium Gluconate 1,000 MG in D5% in Water 100 ML IVPB PRN (04:36)
[2017-01-03] MEDS: Meropenem 1,000 MG in 0.9 % Sodium Chloride Mini Bag 100 ML IVPB SCH ×2 (04:37→16:43)
[2017-01-03] MEDS: Norepinephrine 4 MG in D5% in Water 250 ML IVC SCH ×2 (04:43→19:00)
[2017-01-03] MEDS: Insulin LISPRO 300 UNITS/3 ML VIAL SQ SCH ×6 (04:49→21:22)
[2017-01-03 05:03] LABS: ABG Base Excess -6.9 mEq/L (-2.0 to 3.0); ABG HCO3 19.3 mEQ/L (21-27); ABG Oxygen Saturation 94 % (95-98); ABG PCO2 41 mmHg (35-45); ABG PH 7.28 pH Units (7.32-7.45); ABG PO2 80 mmHg (85-104); ABG TCO2 20.6 mEq/L (20-26)
[2017-01-03 05:04] LABS: Blood Gas FiO2 30 %
[2017-01-03] MEDS ORDERED: 0.9 % Sodium Chloride 500 ML ONE (05:54)
[2017-01-03] MEDS ORDERED: 0.9 % Sodium Chloride 500 ML IVC ONE (05:56)
[2017-01-03] MEDS: Docusate Oral Soln 100 MG/10 ML UDC GTUBE SCH ×2 (07:33→21:23)
[2017-01-03] MEDS: Pantoprazole 40 MG VIAL IVPB SCH (07:33)
[2017-01-03] MEDS: Chlorhexidine Rinse 15 ML MOUTHWASH MM SCH ×2 (07:33→21:23)
--- NOTE | 2017-01-03 12:00 | Palliative Progress Note ---
Date of Encounter: 01/03/17 Time of Encounter: 11:50 - Assessment and plan (1) Dyspnea Current Visit: Yes Status: Acute Assessment and plan: Remains intubated and continues bronchodilators/antibiotic therapy for aspiration pneumonia. Monitor. (2) Goals of care, counseling/discussion Current Visit: Yes Status: Acute Assessment and plan: Discussed with pt , Bernie and daughters, Madiha and Hortencia at bedside. After family discussion last pm, Bernie did desire code status change to DNRCC -Arrest and does not desire compressions or code blue for cardiac arrest. He remains on blood pressure support at this time. D/W daughters that further decisions will need to made and healthcare team will need to know how they desire to proceed if he is extubated and aspirates or again has respiratory failure. Daughters are not in favor of another tracheostomy. He had previously for over a year after a complicated surgical course. Will be meeting with daughters and around 1445 today. (3) Acute respiratory failure, unspecified whether with hypoxia or hypercapnia Current Visit: Yes Status: Acute Qualifiers: Respiratory failure complication: hypoxia Qualified Code(s): J96.01 - Acute respiratory failure with hypoxia (4) Aspiration pneumonia Current Visit: Yes Status: Acute Qualifiers: Aspiration pneumonia type: unspecified Laterality: unspecified laterality Lung location: unspecified part of lung Qualified Code(s): J69.0 - Pneumonitis due to inhalation of food and vomit - Time Spent With Patient Total time spent is greater than 50% in coordination of care (as documented) at patient's floor/unit and/or counseling patient: 25 - 35 minutes - Subjective Interval history: Patient restless with eyes open. and daughter at bedside. Does not follow commands. Biting ET tube occasionally. Remains on Norepinephrine for blood pressure support at this time. Currently in CPAP trial - Constitutional Vitals: Abnormal lab results WBC 14.9 K/mcL (4.3-11.1) H 01/03/17 03:30 RBC 2.65 M/mcL (4.19-5.50) L 01/03/17 03:30 Hgb 8.3 g/dL (12.9-16.9) L 01/03/17 03:30 Hct 25.8 % (37.5-50.1) L 01/03/17 03:30 RDW 15.9 % (11.5-14.5) H 01/03/17 03:30 Plt Count 101 K/mcL (140-400) L 01/03/17 03:30 Band Neutrophils % 22.0 % (0-4) H 01/02/17 03:45 Metamyelocytes % 2.0 % (0) H 01/02/17 03:45 Neutrophils # 13.8 K/mcL (1.6-8.9) H 01/03/17 03:30 Lymphocytes # 0.5 K/mcL (0.6-4.6) L 01/03/17 03:30 Nucleated RBCs/100 WBC 0.1 /100 WBC (0) H 01/03/17 03:30 Platelet Estimate Slight Decrease (Normal) L 01/03/17 03:30 PT 16.0 Seconds (9.4-12.1) H 01/01/17 03:30 Fibrinogen 456 mg/dL (169-393) H 01/01/17 06:20 D-Dimer 4038 ng/mLFEU (0-500) H 01/01/17 06:20 ABG pH 7.28 pH Units (7.32-7.45) L 01/03/17 04:52 ABG pO2 80 mmHg (85-104) L 01/03/17 04:52 ABG HCO3 19.3 mEQ/L (21-27) L 01/03/17 04:52 ABG O2 Saturation 94 % (95-98) L 01/03/17 04:52 ABG Base Excess -6.9 mEq/L (-2.0 to 3.0) L 01/03/17 04:52 Chloride 115 mEq/L (98-109) H 01/03/17 03:30 Carbon Dioxide 18 mEq/L (19-29) L 01/03/17 03:30 BUN 65 mg/dL (8-26) H D 01/03/17 03:30 Creatinine 2.29 mg/dL (0.72-1.25) H 01/03/17 03:30 Est GFR ( Amer) 33 (> 60) L 01/03/17 03:30 Est GFR (Non-Af Amer) 27 (> 60) L 01/03/17 03:30 BUN/Creatinine Ratio 28 (6-26) H 01/03/17 03:30 Glucose 145 mg/dL (70-99) H 01/03/17 03:30 POC Glucose 118 (58-89) H 01/02/17 23:21 Hemoglobin A1c 6.3 % (-5.6) H 12/31/16 18:41 Calculated Osmolality 315 (280-300) H 01/03/17 03:30 Calcium 8.0 mg/dL (8.6-10.8) L 01/03/17 03:30 Ionized Calcium 1.07 mmol/L (1.15-1.35) L 01/03/17 03:30 Phosphorus 5.9 mg/dL (2.3-4.7) H 01/03/17 03:30 Lactate Dehydrogenase 129 Units/L (159-327) L 01/01/17 06:20 Troponin I 0.07 ng/mL (0-0.03) H* 01/03/17 03:30 C-Reactive Protein 150 mg/L (Less than 5) H 12/31/16 21:04 B-Natriuretic Peptide 232 pg/mL (0-100) H 12/31/16 18:41 Serum Total Protein 5.2 g/dL (6.0-8.3) L D 01/01/17 06:20 Albumin 2.1 g/dL (3.5-5.0) L D 01/01/17 06:20 Albumin/Globulin Ratio 0.7 (1.1-2.2) L 01/01/17 06:20 Urine Protein 100 mg/dL (Neg-Trace) H 12/31/16 19:09 Urine Microscopic RBC 3-5 per hpf (0-3) H 12/31/16 19:09 Ur Squamous Epith Cells Many per lpf (None-Few) H 12/31/16 19:09 Amorphous Sediment Moderate (Few) H 12/31/16 19:09 Granular Casts Few per lpf (None Seen) H 12/31/16 19:09 Vancomycin Trough 20.2 mcg/mL (10-20) H* 01/03/17 08:00 General appearance: Present: no acute distress - Respiratory Additional comments: Breath sounds course throughout. Remains on vent, 30% FIO2, 5 PEEP - Cardiovascular Cardiovascular exam: Present: +S1, +S2 - GI/Abdominal GI/Abdominal exam: Present: normal bowel sounds, soft Additional comments: Rectal tube in place with small amount liquid stool in tubing - Additional comments: Catheter with yellow urine - Extremities Exam Extremities exam: Present: normal capillary refill, normal inspection - Neurological Exam Additional comments: Restless and moving head and arms. Opens eyes when name called. Does not follow any commands. - Skin Skin exam: Present: dry, pallor, warm Palliative Quality Palliative Quality: Screen for Code Status: Yes, Screen for Goals of Care: Yes, Screen for Pain: Yes, If Pain Regimen Started, Initiate Bowel Regimen: NA, Screen for Nausea/Vomitting: Yes Code Status: 12/31/16 19:56 Resuscitation Status: Active [RES] Routine Comment: Resuscitation Status: DNR-Comfort Care-Arrest Resuscitation Status: Active [RES] Routine Comment: Resuscitation Status: Full Code 01/03/17 08:57 DNR [Resuscitation Status: Active] [RES] Routine Comment: Resuscitation Status: Full Code 01/03/17 10:21 DNR [Resuscitation Status: Active] [RES] Routine Comment: Resuscitation Status: DNR-Comfort Care-Arrest - Labs CBC & Chem 7: 01/03/17 03:30 01/03/17 03:30 Labs: Laboratory Results - last 24 hr 01/02/17 01/02/17 01/02/17 04:20 05:23 07:33 WBC RBC Hgb Hct MCV MCH MCHC RDW Plt Count MPV Immature Gran % Seg Neutrophils % Lymphocytes % Monocytes % Eosinophils % Basophils % Neutrophils # Lymphocytes # Monocytes # Eosinophils # Basophils # Nucleated RBCs/100 WBC Platelet Estimate Immature Plt Fraction ABG pH ABG pCO2 ABG pO2 ABG HCO3 ABG Total CO2 ABG O2 Saturation ABG Base Excess Blood Gas Modality Inspired O2 Sodium Potassium Chloride Carbon Dioxide BUN Creatinine Est GFR ( Amer) Est GFR (Non-Af Amer) BUN/Creatinine Ratio Glucose POC Glucose 65 74 77 Calculated Osmolality Calcium Ionized Calcium Phosphorus Magnesium Troponin I Random Cortisol Urine Sodium Vancomycin Trough 01/02/17 01/02/17 01/02/17 11:28 15:20 15:33 WBC RBC Hgb Hct MCV MCH MCHC RDW Plt Count MPV Immature Gran % Seg Neutrophils % Lymphocytes % Monocytes % Eosinophils % Basophils % Neutrophils # Lymphocytes # Monocytes # Eosinophils # Basophils # Nucleated RBCs/100 WBC Platelet Estimate Immature Plt Fraction ABG pH ABG pCO2 ABG pO2 ABG HCO3 ABG Total CO2 ABG O2 Saturation ABG Base Excess Blood Gas Modality Inspired O2 Sodium Potassium Chloride Carbon Dioxide BUN Creatinine Est GFR ( Amer) Est GFR (Non-Af Amer) BUN/Creatinine Ratio Glucose POC Glucose 100 H 147 H Calculated Osmolality Calcium Ionized Calcium Phosphorus Magnesium Troponin I Random Cortisol Urine Sodium 22.0 Vancomycin Trough 01/02/17 01/02/17 01/03/17 18:56 23:21 03:30 WBC 14.9 H RBC 2.65 L Hgb 8.3 L Hct 25.8 L MCV 97.4 MCH 31.3 MCHC 32.2 RDW 15.9 H Plt Count 101 L MPV 11.0 Immature Gran % 1.1 Seg Neutrophils % 92.4 Lymphocytes % 3.2 Monocytes % 3.2 Eosinophils % 0.0 Basophils % 0.1 Neutrophils # 13.8 H Lymphocytes # 0.5 L Monocytes # 0.5 Eosinophils # 0.0 Basophils # 0.0 Nucleated RBCs/100 WBC 0.1 H Platelet Estimate Slight Decrease L Immature Plt Fraction 5.5 ABG pH ABG pCO2 ABG pO2 ABG HCO3 ABG Total CO2 ABG O2 Saturation ABG Base Excess Blood Gas Modality Inspired O2 Sodium Potassium Chloride Carbon Dioxide BUN Creatinine Est GFR ( Amer) Est GFR (Non-Af Amer) BUN/Creatinine Ratio Glucose POC Glucose 115 H 118 H Calculated Osmolality Calcium Ionized Calcium Phosphorus Magnesium Troponin I Random Cortisol Urine Sodium Vancomycin Trough 01/03/17 01/03/17 01/03/17 03:30 03:30 04:52 WBC RBC Hgb Hct MCV MCH MCHC RDW Plt Count MPV Immature Gran % Seg Neutrophils % Lymphocytes % Monocytes % Eosinophils % Basophils % Neutrophils # Lymphocytes # Monocytes # Eosinophils # Basophils # Nucleated RBCs/100 WBC Platelet Estimate Immature Plt Fraction ABG pH 7.28 L ABG pCO2 41 ABG pO2 80 L ABG HCO3 19.3 L ABG Total CO2 20.6 ABG O2 Saturation 94 L ABG Base Excess -6.9 L Blood Gas Modality VC+ Inspired O2 30 Sodium 142 Potassium 3.6 Chloride 115 H Carbon Dioxide 18 L BUN 65 H D Creatinine 2.29 H Est GFR ( Amer) 33 L Est GFR (Non-Af Amer) 27 L BUN/Creatinine Ratio 28 H Glucose 145 H POC Glucose Calculated Osmolality 315 H Calcium 8.0 L Ionized Calcium 1.07 L Phosphorus 5.9 H Magnesium 2.0 Troponin I 0.07 H* Random Cortisol 3.2 Urine Sodium Vancomycin Trough 01/03/17 08:00 WBC RBC Hgb Hct MCV MCH MCHC RDW Plt Count MPV Immature Gran % Seg Neutrophils % Lymphocytes % Monocytes % Eosinophils % Basophils % Neutrophils # Lymphocytes # Monocytes # Eosinophils # Basophils # Nucleated RBCs/100 WBC Platelet Estimate Immature Plt Fraction ABG pH ABG pCO2 ABG pO2 ABG HCO3 ABG Total CO2 ABG O2 Saturation ABG Base Excess Blood Gas Modality Inspired O2 Sodium Potassium Chloride Carbon Dioxide BUN Creatinine Est GFR ( Amer) Est GFR (Non-Af Amer) BUN/Creatinine Ratio Glucose POC Glucose Calculated Osmolality Calcium Ionized Calcium Phosphorus Magnesium Troponin I Random Cortisol Urine Sodium Vancomycin Trough 20.2 H* - ABG Interpretation ABG results: ABG ABG pH 7.28 pH Units (7.32-7.45) L 01/03/17 04:52 ABG pCO2 41 mmHg (35-45) 01/03/17 04:52 ABG pO2 80 mmHg (85-104) L 01/03/17 04:52 ABG O2 Saturation 94 % (95-98) L 01/03/17 04:52 PT/INR, D-dimer PT 16.0 Seconds (9.4-12.1) H 01/01/17 03:30 D-Dimer 4038 ng/mLFEU (0-500) H 01/01/17 06:20 Consult Discharge Plan - Plan Referrals: Tesfaye Brock DO [Primary Care Provider] -
[2017-01-03] MEDS: Silvasorb 44.4 ML TUBE TP SCH (15:52)
[2017-01-03] MEDS ORDERED: Vancomycin 1,000 MG in D5% in Water 250 ML IVPB SCH ×2 (16:00→16:01)
--- NOTE | 2017-01-03 16:04 | Event Note ---
Date of Encounter: 01/03/17 Time of Encounter: 15:50 Hour meeting with Bernie and 2 daughters re: goals of care. Updated on clinical status. After much discussion, states she does not want him re- intubated if he fails and does poorly after extubation, and does not want him to have tracheostomy. She desires aggressive care to continue for now. Daughters believe that he has been going downhill for the last year, and do not want to see him suffer. still believes he can have full recovery. We also discussed that even if he does well with CPAP trials, he may not be strong enough to protect his airway and we are not sure if he will be able to safely swallow. /daughters verbalized understanding. Code status DNRCC-Arrest with the addition of "no reintubation after extubation". Will continue to follow closely.
--- NOTE | 2017-01-03 16:06 | Pulmonology Progress Note ---
<ReynoldNik Juancarlos - Last Filed: 01/03/17 16:03> Date of Encounter: 01/03/17 Time of Encounter: 16:13 Assessment and Plan (1) Septic shock Current Visit: Yes Status: Acute 1. Sepsis WBC peaked at 26.7 14.9 today. Oliguria and ileus. Source currently unknown; UA did not show UTI. Non-healing surgical wound cultured. Blood cultures pending. Palliative care has spoken with the patient's family. Patient now DNR-CCA. 02 Jan 2017: CT head w/o contrast: No acute intracranial abnormality. 01 Jan 2017: KUB: OG catheter tip projects over gastric body/fundus. Persistent colonic dilation. 01 Jan 2017: CXR: Right subclavian central line with tip in lower SVC. ET tube above kia. 01 Jan 2017: CXR: new right basilar opacity suspicious for pneumonia, stable small left pleural effusion with suspected new small right pleural effusion. Enteric tube tip within the stomach. 31 Dec 2016: KUB: Enteric tube coiled within gastric fundus. Nonspecific bowel gas pattern compatible with ileus. BL pleural effusion. - Continue empiric meropenem day 3, vancomycin day 4. - BP support with levophed 2. Acute respiratory failure Cause uncertain. Suspected related to aspiration event vs PNA. Patient intubated. Oxygenating and ventilating well with lung protective measures. Patient failed CPAP trial today. 3. 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 15cm length x 3cm width x 1cm depth. Skin overlays pericardial sac; heartbeat visible below skin. Mostly well scarred tissue. Central granulation tissue with inferior eschar which produces pus. - Wound culture sent. - Wound care consulted. 4. Ileus Bowel sounds hypoactive. - Continue bowel regimen. - NG tube remains in place on low intermittent suction. - Continue trickle tube feedings. 5. CAD s/p CABG. Mild elevation in troponin on Dec. No evidence of acute ischemic or thromobitic event. Suspect elevated troponin secondary to demand ischemia and poor renal clearance. 01 Jan 2017: Cardiac Echo: Suboptimal study. Mild LV diastolic dysfunction, LV systolic function appears normal. No pericardial effusion. 31 Dec 2016: EKG in ER: Sinus tachycardia. 6. Chronic CKD CKD stage III. Currently oliguric. - Continue monitoring. - IF worsens, will consult nephrology. 7. Hx CABG (2) Acute respiratory failure, unspecified whether with hypoxia or hypercapnia Current Visit: Yes Status: Acute Plan as above. Qualifiers: Respiratory failure complication: hypoxia Qualified Code(s): J96.01 - Acute respiratory failure with hypoxia (3) Nonhealing surgical wound Current Visit: No Status: Chronic Plan as above. Qualifiers: Encounter type: subsequent encounter Qualified Code(s): T81.89XD - Other complications of procedures, not elsewhere classified, subsequent encounter (4) Ileus, unspecified Current Visit: Yes Status: Acute Plan as above. 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 - Wound care per nursing. - Rectal tube placed as patient was incontinent of stool and had stool leakage around/into ulcer. Qualifiers: Pressure ulcer stage: stage 1 Qualified Code(s): L89.151 - Pressure ulcer of sacral region, stage 1 (6) CAD (coronary artery disease), [place] coronary artery Current Visit: Yes Status: Chronic Plan as above. Qualifiers: [place] vs. transplanted heart: [place] heart Associated angina: with unspecified angina Qualified Code(s): I25.119 - Atherosclerotic heart disease of [place] coronary artery with unspecified angina pectoris (7) CKD (chronic kidney disease) stage 3, GFR 30-59 ml/min Current Visit: Yes Status: Chronic Plan as above. (8) Hx of CABG Current Visit: Yes Status: Chronic Plan as above. Subjective Principal diagnosis: Respiratory failure Interval history: Mr. Mccoy remains intubated. Appears comfortable. No acute events overnight. Objective PUL Vital signs: Last Vital Signs Temp 98.4 F 01/03/17 12:50 Pulse 82 01/03/17 15:00 Resp 14 01/03/17 15:17 BP 99/36 01/03/17 15:00 Pulse Ox 99 01/03/17 15:17 Ventilator Settings Ventilator Settings: Ventilator Settings, Last 8 Hours Ventilator Mode CPAP Ventilator Mode VC+ Ventilator Mode CPAP Ventilator Mode CPAP Ventilator Mode CPAP Ventilator Mode CPAP Ventilator Mode CPAP Ventilator Mode CPAP Ventilator Mode CPAP Ventilator Mode CPAP Ventilator Mode VC+ Ventilator Mode VC+ Ventilator Tidal Volume 550 Setting Ventilator Tidal Volume 550 Setting Ventilator Tidal Volume 550 Setting Ventilator Tidal Volume 550 Setting Ventilator Tidal Volume 550 Setting Ventilator Tidal Volume 550 Setting Ventilator Tidal Volume 550 Setting Ventilator Tidal Volume 550 Setting Ventilator Tidal Volume 550 Setting Ventilator Respiratory Rate 12 Setting Ventilator Respiratory Rate 12 Setting Ventilator Respiratory Rate 12 Setting Ventilator Respiratory Rate 12 Setting Ventilator Respiratory Rate 12 Setting Actual Respiratory Rate 13 Actual Respiratory Rate 14 Actual Respiratory Rate 8 Actual Respiratory Rate 10 Actual Respiratory Rate 12 Actual Respiratory Rate 13 Actual Respiratory Rate 13 Actual Respiratory Rate 11 Actual Respiratory Rate 17 Actual Respiratory Rate 13 Actual Respiratory Rate 18 Actual Respiratory Rate 18 Positive End Expiratory 5 Pressure Positive End Expiratory 5 Pressure Positive End Expiratory 5 Pressure Positive End Expiratory 5 Pressure Positive End Expiratory 5 Pressure Positive End Expiratory 5 Pressure Positive End Expiratory 5 Pressure Positive End Expiratory 5 Pressure Positive End Expiratory 5 Pressure Positive End Expiratory 5 Pressure Positive End Expiratory 5 Pressure Positive End Expiratory 5 Pressure Peak Inspiratory Airway 30 Pressure Peak Inspiratory Airway 47 Pressure Peak Inspiratory Airway 15 Pressure Peak Inspiratory Airway 15 Pressure Peak Inspiratory Airway 16 Pressure Peak Inspiratory Airway 16 Pressure Peak Inspiratory Airway 16 Pressure Peak Inspiratory Airway 15 Pressure Peak Inspiratory Airway 15 Pressure Peak Inspiratory Airway 15 Pressure Peak Inspiratory Airway 29 Pressure Peak Inspiratory Airway 29 Pressure Results - Laboratory Findings CBC and BMP: 01/03/17 03:30 01/03/17 03:30 ABG ABG pH 7.28 pH Units (7.32-7.45) L 01/03/17 04:52 ABG pCO2 41 mmHg (35-45) 01/03/17 04:52 ABG pO2 80 mmHg (85-104) L 01/03/17 04:52 ABG O2 Saturation 94 % (95-98) L 01/03/17 04:52 PT/INR, D-dimer PT 16.0 Seconds (9.4-12.1) H 01/01/17 03:30 D-Dimer 4038 ng/mLFEU (0-500) H 01/01/17 06:20 Abnormal lab findings: Abnormal lab results WBC 14.9 K/mcL (4.3-11.1) H 01/03/17 03:30 RBC 2.65 M/mcL (4.19-5.50) L 01/03/17 03:30 Hgb 8.3 g/dL (12.9-16.9) L 01/03/17 03:30 Hct 25.8 % (37.5-50.1) L 01/03/17 03:30 RDW 15.9 % (11.5-14.5) H 01/03/17 03:30 Plt Count 101 K/mcL (140-400) L 01/03/17 03:30 Band Neutrophils % 22.0 % (0-4) H 01/02/17 03:45 Metamyelocytes % 2.0 % (0) H 01/02/17 03:45 Neutrophils # 13.8 K/mcL (1.6-8.9) H 01/03/17 03:30 Lymphocytes # 0.5 K/mcL (0.6-4.6) L 01/03/17 03:30 Nucleated RBCs/100 WBC 0.1 /100 WBC (0) H 01/03/17 03:30 Platelet Estimate Slight Decrease (Normal) L 01/03/17 03:30 PT 16.0 Seconds (9.4-12.1) H 01/01/17 03:30 Fibrinogen 456 mg/dL (169-393) H 01/01/17 06:20 D-Dimer 4038 ng/mLFEU (0-500) H 01/01/17 06:20 ABG pH 7.28 pH Units (7.32-7.45) L 01/03/17 04:52 ABG pO2 80 mmHg (85-104) L 01/03/17 04:52 ABG HCO3 19.3 mEQ/L (21-27) L 01/03/17 04:52 ABG O2 Saturation 94 % (95-98) L 01/03/17 04:52 ABG Base Excess -6.9 mEq/L (-2.0 to 3.0) L 01/03/17 04:52 Chloride 115 mEq/L (98-109) H 01/03/17 03:30 Carbon Dioxide 18 mEq/L (19-29) L 01/03/17 03:30 BUN 65 mg/dL (8-26) H D 01/03/17 03:30 Creatinine 2.29 mg/dL (0.72-1.25) H 01/03/17 03:30 Est GFR ( Amer) 33 (> 60) L 01/03/17 03:30 Est GFR (Non-Af Amer) 27 (> 60) L 01/03/17 03:30 BUN/Creatinine Ratio 28 (6-26) H 01/03/17 03:30 Glucose 145 mg/dL (70-99) H 01/03/17 03:30 POC Glucose 118 (58-89) H 01/02/17 23:21 Hemoglobin A1c 6.3 % (-5.6) H 12/31/16 18:41 Calculated Osmolality 315 (280-300) H 01/03/17 03:30 Calcium 8.0 mg/dL (8.6-10.8) L 01/03/17 03:30 Ionized Calcium 1.07 mmol/L (1.15-1.35) L 01/03/17 03:30 Phosphorus 5.9 mg/dL (2.3-4.7) H 01/03/17 03:30 Lactate Dehydrogenase 129 Units/L (159-327) L 01/01/17 06:20 Troponin I 0.07 ng/mL (0-0.03) H* 01/03/17 03:30 C-Reactive Protein 150 mg/L (Less than 5) H 12/31/16 21:04 B-Natriuretic Peptide 232 pg/mL (0-100) H 12/31/16 18:41 Serum Total Protein 5.2 g/dL (6.0-8.3) L D 01/01/17 06:20 Albumin 2.1 g/dL (3.5-5.0) L D 01/01/17 06:20 Albumin/Globulin Ratio 0.7 (1.1-2.2) L 01/01/17 06:20 Urine Protein 100 mg/dL (Neg-Trace) H 12/31/16 19:09 Urine Microscopic RBC 3-5 per hpf (0-3) H 12/31/16 19:09 Ur Squamous Epith Cells Many per lpf (None-Few) H 12/31/16 19:09 Amorphous Sediment Moderate (Few) H 12/31/16 19:09 Granular Casts Few per lpf (None Seen) H 12/31/16 19:09 Vancomycin Trough 20.2 mcg/mL (10-20) H* 01/03/17 08:00 - Microbiology Findings Microbiology Findings: Microbiology, Last 48 Hours 01/02/17 12:39 Wound Culture - Preliminary Chest Gram Positive Cocci 01/01/17 05:51 Sputum Culture - Final Sputum Strep agalactiae - (Group B) - Clinical Findings Intake & Output: Intake & Output 01/03/17 01/03/17 01/03/17 07:59 15:59 23:59 Intake Total 1075 / 1075 Output Total 50 / 50 150 / 150 Balance 1025 / 1025 -150 / -150 - VTE Documentation of Mechanical Device: Intermittent pneumatic compression device Consult Discharge Plan - Plan Referrals: Tesfaye Brock DO [Primary Care Provider] - <Danika Etienne - Last Filed: 01/03/17 16:51> Date of Encounter: 01/03/17 Objective PUL Vital signs: Last Vital Signs Temp 98.2 F 01/03/17 16:00 Pulse 80 01/03/17 16:00 Resp 12 01/03/17 16:00 BP 123/47 01/03/17 16:00 Pulse Ox 99 01/03/17 16:00 Ventilator Settings Ventilator Settings: Ventilator Settings, Last 8 Hours Ventilator Mode CPAP Ventilator Mode CPAP Ventilator Mode VC+ Ventilator Mode CPAP Ventilator Mode CPAP Ventilator Mode CPAP Ventilator Mode CPAP Ventilator Mode CPAP Ventilator Mode CPAP Ventilator Mode CPAP Ventilator Mode CPAP Ventilator Mode VC+ Ventilator Mode VC+ Ventilator Tidal Volume 550 Setting Ventilator Tidal Volume 550 Setting Ventilator Tidal Volume 550 Setting Ventilator Tidal Volume 550 Setting Ventilator Tidal Volume 550 Setting Ventilator Tidal Volume 550 Setting Ventilator Tidal Volume 550 Setting Ventilator Tidal Volume 550 Setting Ventilator Tidal Volume 550 Setting Ventilator Tidal Volume 550 Setting Ventilator Respiratory Rate 12 Setting Ventilator Respiratory Rate 12 Setting Ventilator Respiratory Rate 12 Setting Ventilator Respiratory Rate 12 Setting Ventilator Respiratory Rate 12 Setting Ventilator Respiratory Rate 12 Setting Actual Respiratory Rate 12 Actual Respiratory Rate 13 Actual Respiratory Rate 14 Actual Respiratory Rate 8 Actual Respiratory Rate 10 Actual Respiratory Rate 12 Actual Respiratory Rate 13 Actual Respiratory Rate 13 Actual Respiratory Rate 11 Actual Respiratory Rate 17 Actual Respiratory Rate 13 Actual Respiratory Rate 18 Actual Respiratory Rate 18 Positive End Expiratory 5 Pressure Positive End Expiratory 5 Pressure Positive End Expiratory 5 Pressure Positive End Expiratory 5 Pressure Positive End Expiratory 5 Pressure Positive End Expiratory 5 Pressure Positive End Expiratory 5 Pressure Positive End Expiratory 5 Pressure Positive End Expiratory 5 Pressure Positive End Expiratory 5 Pressure Positive End Expiratory 5 Pressure Positive End Expiratory 5 Pressure Positive End Expiratory 5 Pressure Peak Inspiratory Airway 44 Pressure Peak Inspiratory Airway 30 Pressure Peak Inspiratory Airway 47 Pressure Peak Inspiratory Airway 15 Pressure Peak Inspiratory Airway 15 Pressure Peak Inspiratory Airway 16 Pressure Peak Inspiratory Airway 16 Pressure Peak Inspiratory Airway 16 Pressure Peak Inspiratory Airway 15 Pressure Peak Inspiratory Airway 15 Pressure Peak Inspiratory Airway 15 Pressure Peak Inspiratory Airway 29 Pressure Peak Inspiratory Airway 29 Pressure Results - Laboratory Findings CBC and BMP: 01/03/17 03:30 01/03/17 03:30 ABG ABG pH 7.28 pH Units (7.32-7.45) L 01/03/17 04:52 ABG pCO2 41 mmHg (35-45) 01/03/17 04:52 ABG pO2 80 mmHg (85-104) L 01/03/17 04:52 ABG O2 Saturation 94 % (95-98) L 01/03/17 04:52 PT/INR, D-dimer PT 16.0 Seconds (9.4-12.1) H 01/01/17 03:30 D-Dimer 4038 ng/mLFEU (0-500) H 01/01/17 06:20 Abnormal lab findings: Abnormal lab results WBC 14.9 K/mcL (4.3-11.1) H 01/03/17 03:30 RBC 2.65 M/mcL (4.19-5.50) L 01/03/17 03:30 Hgb 8.3 g/dL (12.9-16.9) L 01/03/17 03:30 Hct 25.8 % (37.5-50.1) L 01/03/17 03:30 RDW 15.9 % (11.5-14.5) H 01/03/17 03:30 Plt Count 101 K/mcL (140-400) L 01/03/17 03:30 Band Neutrophils % 22.0 % (0-4) H 01/02/17 03:45 Metamyelocytes % 2.0 % (0) H 01/02/17 03:45 Neutrophils # 13.8 K/mcL (1.6-8.9) H 01/03/17 03:30 Lymphocytes # 0.5 K/mcL (0.6-4.6) L 01/03/17 03:30 Nucleated RBCs/100 WBC 0.1 /100 WBC (0) H 01/03/17 03:30 Platelet Estimate Slight Decrease (Normal) 01/03/17 03:30 PT 16.0 Seconds (9.4-12.1) H 01/01/17 03:30 Fibrinogen 456 mg/dL (169-393) H 01/01/17 06:20 D-Dimer 4038 ng/mLFEU (0-500) H 01/01/17 06:20 ABG pH 7.28 pH Units (7.32-7.45) L 01/03/17 04:52 ABG pO2 80 mmHg (85-104) L 01/03/17 04:52 ABG HCO3 19.3 mEQ/L (21-27) L 01/03/17 04:52 ABG O2 Saturation 94 % (95-98) L 01/03/17 04:52 ABG Base Excess -6.9 mEq/L (-2.0 to 3.0) L 01/03/17 04:52 Chloride 115 mEq/L (98-109) H 01/03/17 03:30 Carbon Dioxide 18 mEq/L (19-29) L 01/03/17 03:30 BUN 65 mg/dL (8-26) H D 01/03/17 03:30 Creatinine 2.29 mg/dL (0.72-1.25) H 01/03/17 03:30 Est GFR ( Amer) 33 (> 60) L 01/03/17 03:30 Est GFR (Non-Af Amer) 27 (> 60) L 01/03/17 03:30 BUN/Creatinine Ratio 28 (6-26) H 01/03/17 03:30 Glucose 145 mg/dL (70-99) H 01/03/17 03:30 POC Glucose 118 (58-89) H 01/02/17 23:21 Hemoglobin A1c 6.3 % (-5.6) H 12/31/16 18:41 Calculated Osmolality 315 (280-300) H 01/03/17 03:30 Calcium 8.0 mg/dL (8.6-10.8) L 01/03/17 03:30 Ionized Calcium 1.07 mmol/L (1.15-1.35) L 01/03/17 03:30 Phosphorus 5.9 mg/dL (2.3-4.7) H 01/03/17 03:30 Lactate Dehydrogenase 129 Units/L (159-327) L 01/01/17 06:20 Troponin I 0.07 ng/mL (0-0.03) H* 01/03/17 03:30 C-Reactive Protein 150 mg/L (Less than 5) H 12/31/16 21:04 B-Natriuretic Peptide 232 pg/mL (0-100) H 12/31/16 18:41 Serum Total Protein 5.2 g/dL (6.0-8.3) L D 01/01/17 06:20 Albumin 2.1 g/dL (3.5-5.0) L D 01/01/17 06:20 Albumin/Globulin Ratio 0.7 (1.1-2.2) L 01/01/17 06:20 Urine Protein 100 mg/dL (Neg-Trace) H 12/31/16 19:09 Urine Microscopic RBC 3-5 per hpf (0-3) H 12/31/16 19:09 Ur Squamous Epith Cells Many per lpf (None-Few) H 12/31/16 19:09 Amorphous Sediment Moderate (Few) H 12/31/16 19:09 Granular Casts Few per lpf (None Seen) H 12/31/16 19:09 Vancomycin Trough 20.2 mcg/mL (10-20) H* 01/03/17 08:00 - Microbiology Findings Microbiology Findings: Microbiology, Last 48 Hours 01/02/17 12:39 Wound Culture - Preliminary Chest Gram Positive Cocci 01/01/17 05:51 Sputum Culture - Final Sputum Strep agalactiae - (Group B) - Clinical Findings Intake & Output: Intake & Output 01/03/17 01/03/17 01/03/17 07:59 15:59 23:59 Intake Total 1175 / 1175 122 / 122 Output Total 50 / 50 150 / 150 Balance 1125 / 1125 -150 / -150 122 / 122 - Attending Attestation I examined this patient and my medical decision-making was reviewed with the [employer] ENGINEER/PA/Advanced Practice Nurse/Resident Physician. I agree with the documented findings, disposition and treatment plan as described except to the extent set forth below. Patient seen and examined. Labs, radiology, chart personally reviewed. 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 Pulmonary: Acceptable oxygenation and ventilation and lowered PEEP and FIO2 to the point he was able to tolerate SBT before meeting with the family and palliative care to meet with them. Patient didn't not pass his SBT and then was placed back to AC mode. Patient has poor prognosis and continue vent support for now. Cardiovascular: Still requiring low dose of Levophed and gave fluid bolus to help. Patient can't tolerated CPR due to his previous surgery and not have normal bony structures and family understand that. GI: Nutrition per dietary and GI prophylaxis per routine Heme: DVT prophylaxis per routine ID: Continue antibiotics and plan to de-escalation Renal; urine out put and renal funtion reviewed Endorcine: blood glucose is monitored Lines: all lines checked and no evidence of infections Skin: skin care to prevent pressure ulcers per nursing routine care I spent 35 min of Critical Care time with this patient. It involved decision making of high complexity to assess, manipulate, and support vital organ system failure and/or to prevent further life threatening deterioration of the patient' s condition. The time involved in the performance of separately reportable procedures was not counted toward critical care time.
[2017-01-03] MEDS ORDERED: Ipratropium/Albuterol Neb 3 ML ONE (17:24)
[2017-01-03] MEDS: FentaNYL (PF) 1,000 MCG in 0.9 % Sodium Chloride 80 ML IVC PRN (19:00)
[2017-01-03] MEDS: Vancomycin 1,250 MG in D5% in Water 250 ML IVPB SCH (20:14)
[2017-01-03] MEDS: Ipratropium/Albuterol Neb 3 ML IH SCH (20:15)
[2017-01-03] MEDS: Acetylcysteine 10% 2 ML INHSOL IH SCH (20:15)
[2017-01-04] MEDS: Budesonide/Formoterol 160/4.5 MDI IH SCH ×3 (00:11→20:10)
[2017-01-04] MEDS: Ipratropium/Albuterol Neb 3 ML IH SCH ×6 (00:11→20:10)
[2017-01-04] MEDS: Acetylcysteine 10% 2 ML INHSOL IH SCH ×6 (00:11→20:10)
[2017-01-04] MEDS: *HR* Heparin 5,000 UNIT/ML VIAL SQ SCH ×4 (00:23→23:50)
[2017-01-04] MEDS: Insulin LISPRO 300 UNITS/3 ML VIAL SQ SCH ×6 (00:24→21:17)
[2017-01-04] MEDS: Lacri-Lube 3.5 GM TUBE BOTH EYES SCH ×7 (00:24→23:51)
[2017-01-04] MEDS: FentaNYL (PF) 1,000 MCG in 0.9 % Sodium Chloride 80 ML IVC PRN (02:10)
[2017-01-04] MEDS: Norepinephrine 4 MG in D5% in Water 250 ML IVC SCH ×4 (03:00→23:50)
[2017-01-04 04:38] LABS: Basophils % 0.1 %; Eosinophils # 0.4 K/mcL (0.0-0.6); Eosinophils % 1.7 %; Hematocrit 29.2 % (37.5-50.1); Hemoglobin 9.4 g/dL (12.9-16.9); Immature Granulocytes % 1.3 % (0-4); Lymphocytes # 1.5 K/mcL (0.6-4.6); Lymphocytes % 6.4 %; Mean Corpuscular HGB Conc 32.2 g/dL (31.6-35.5); Mean Corpuscular Hemoglobin 31.2 pg (28.0-33.3); Mean Platelet Volume 10.8 fL (9.4-12.4); Monocytes # 0.8 K/mcL (0.0-1.3); Monocytes % 3.2 %; Neutrophils # 20.5 K/mcL (1.6-8.9); Nucleated Red Blood Cells 0.1 /100 WBC (0); Platelet Count 129 K/mcL (140-400); Red Blood Count 3.01 M/mcL (4.19-5.50); Red Cell Distribution Width 15.9 % (11.5-14.5); Segmented Neutrophils % 87.3 %
[2017-01-04 04:51] LABS: ABG Base Excess -8.3 mEq/L (-2.0 to 3.0); ABG Oxygen Saturation 100 % (95-98); ABG PCO2 33 mmHg (35-45); ABG PH 7.32 pH Units (7.32-7.45); ABG PO2 338 mmHg (85-104); Blood Gas FiO2 80 %; Blood Gas Respiration Rate 12; Blood Gas VT 550 cc
[2017-01-04] MEDS: Meropenem 1,000 MG in 0.9 % Sodium Chloride Mini Bag 100 ML IVPB SCH ×2 (04:51→17:50)
[2017-01-04 04:52] LABS: Blood Gas PEEP 12 cm H2O
[2017-01-04 04:54] LABS: Calcium 8.4 mg/dL (8.6-10.8); Potassium 3.7 mEq/L (3.5-4.5)
[2017-01-04 04:59] LABS: Anisocytosis 1+ (Not Present); Platelet Estimate Slight Decrease (Normal); Reactive Lymphocytes Present (Not Present)
[2017-01-04 05:00] LABS: Macrocytosis Present (Not Present)
[2017-01-04] MEDS: Potassium Chloride 40 MEQ/200 ML BAG IVPB PRN ×2 (06:37→08:21)
[2017-01-04] MEDS ORDERED: Aminoglycoside Consult 1 EACH MC ONE (08:34)
[2017-01-04] MEDS: Pantoprazole 40 MG VIAL IVPB SCH (09:31)
[2017-01-04] MEDS: Docusate Oral Soln 100 MG/10 ML UDC GTUBE SCH ×2 (09:35→21:16)
[2017-01-04] MEDS: Chlorhexidine Rinse 15 ML MOUTHWASH MM SCH ×2 (09:35→21:16)
[2017-01-04] MEDS: Silvasorb 44.4 ML TUBE TP SCH (09:36)
[2017-01-04] MEDS: FentaNYL (PF) 1,000 MCG in 0.9 % Sodium Chloride 80 ML IVC SCH ×3 (09:44→23:50)
--- NOTE | 2017-01-04 12:04 | Palliative Progress Note ---
Date of Encounter: 01/04/17 Time of Encounter: 12:00 - Assessment and plan (1) Dyspnea Current Visit: Yes Status: Acute Assessment and plan: Maintain vent support today. Plan for extubation tomorrow afternoon and will provide medications for dyspnea. (2) Goals of care, counseling/discussion Current Visit: Yes Status: Acute Assessment and plan: and daughter updated on clinical status and events overnight and this am. They have decided to call family in to say their goodbyes and plan on extubation tomorrow afternoon. There are some family members coming from out of town. Family does not want any care escalated at this point, but would like to maintain current care and vent support until tomorrow. Will plan on compassionate extubation tomorrow afternoon. D/W Dr. Etienne and pt bedside nurse, Ana Maria. (3) Acute respiratory failure, unspecified whether with hypoxia or hypercapnia Current Visit: Yes Status: Acute Qualifiers: Respiratory failure complication: hypoxia Qualified Code(s): J96.01 - Acute respiratory failure with hypoxia (4) Aspiration pneumonia Current Visit: Yes Status: Acute Qualifiers: Aspiration pneumonia type: unspecified Laterality: unspecified laterality Lung location: unspecified part of lung Qualified Code(s): J69.0 - Pneumonitis due to inhalation of food and vomit - Time Spent With Patient Total time spent is greater than 50% in coordination of care (as documented) at patient's floor/unit and/or counseling patient: 25 - 35 minutes - Subjective Interval history: Patient with hypoxia during night with turning. Blood pressure dropped again this am. Vent with FI02 100% during the night when desaturated, decreased to 50 % this am, but now back at 100%. WBC increased from yesterday. Renal function remains compromised. , Bernie and daughter Hortencia at bedside. - Constitutional Vitals: Abnormal lab results WBC 23.5 K/mcL (4.3-11.1) H D 01/04/17 04:21 RBC 3.01 M/mcL (4.19-5.50) L 01/04/17 04:21 Hgb 9.4 g/dL (12.9-16.9) L 01/04/17 04:21 Hct 29.2 % (37.5-50.1) L 01/04/17 04:21 RDW 15.9 % (11.5-14.5) H 01/04/17 04:21 Plt Count 129 K/mcL (140-400) L 01/04/17 04:21 Band Neutrophils % 22.0 % (0-4) H 01/02/17 03:45 Metamyelocytes % 2.0 % (0) H 01/02/17 03:45 Neutrophils # 20.5 K/mcL (1.6-8.9) H 01/04/17 04:21 Nucleated RBCs/100 WBC 0.1 /100 WBC (0) H 01/04/17 04:21 Reactive Lymphocytes Present (Not Present) A 01/04/17 04:21 Platelet Estimate Slight Decrease (Normal) L 01/04/17 04:21 Anisocytosis 1+ (Not Present) A 01/04/17 04:21 Macrocytosis Present (Not Present) A 01/04/17 04:21 PT 16.0 Seconds (9.4-12.1) H 01/01/17 03:30 Fibrinogen 456 mg/dL (169-393) H 01/01/17 06:20 D-Dimer 4038 ng/mLFEU (0-500) H 01/01/17 06:20 ABG pCO2 33 mmHg (35-45) L 01/04/17 04:41 ABG pO2 338 mmHg (85-104) H 01/04/17 04:41 ABG HCO3 17.0 mEQ/L (21-27) L 01/04/17 04:41 ABG Total CO2 18.0 mEq/L (20-26) L 01/04/17 04:41 ABG O2 Saturation 100 % (95-98) H 01/04/17 04:41 ABG Base Excess -8.3 mEq/L (-2.0 to 3.0) L 01/04/17 04:41 Chloride 115 mEq/L (98-109) H 01/04/17 04:21 Carbon Dioxide 17 mEq/L (19-29) L 01/04/17 04:21 BUN 66 mg/dL (8-26) H 01/04/17 04:21 Creatinine 2.18 mg/dL (0.72-1.25) H 01/04/17 04:21 Est GFR ( Amer) 35 (> 60) L 01/04/17 04:21 Est GFR (Non-Af Amer) 29 (> 60) L 01/04/17 04:21 BUN/Creatinine Ratio 30 (6-26) H 01/04/17 04:21 Glucose 110 mg/dL (70-99) H 01/04/17 04:21 POC Glucose 168 (58-89) H 01/03/17 23:40 Hemoglobin A1c 6.3 % (-5.6) H 12/31/16 18:41 Calculated Osmolality 314 (280-300) H 01/04/17 04:21 Calcium 8.4 mg/dL (8.6-10.8) L 01/04/17 04:21 Ionized Calcium 1.07 mmol/L (1.15-1.35) L 01/03/17 03:30 Phosphorus 5.9 mg/dL (2.3-4.7) H 01/03/17 03:30 Lactate Dehydrogenase 129 Units/L (159-327) L 01/01/17 06:20 Troponin I 0.07 ng/mL (0-0.03) H* 01/03/17 03:30 C-Reactive Protein 150 mg/L (Less than 5) H 12/31/16 21:04 B-Natriuretic Peptide 232 pg/mL (0-100) H 12/31/16 18:41 Serum Total Protein 5.2 g/dL (6.0-8.3) L D 01/01/17 06:20 Albumin 2.1 g/dL (3.5-5.0) L D 01/01/17 06:20 Albumin/Globulin Ratio 0.7 (1.1-2.2) L 01/01/17 06:20 Urine Protein 100 mg/dL (Neg-Trace) H 12/31/16 19:09 Urine Microscopic RBC 3-5 per hpf (0-3) H 12/31/16 19:09 Ur Squamous Epith Cells Many per lpf (None-Few) H 12/31/16 19:09 Amorphous Sediment Moderate (Few) H 12/31/16 19:09 Granular Casts Few per lpf (None Seen) H 12/31/16 19:09 Vancomycin Trough 20.2 mcg/mL (10-20) H* 01/03/17 08:00 General appearance: Present: no acute distress - Respiratory Respiratory exam: Present: decreased breath sounds, CTAB Additional comments: Breath sounds course throughout. Remains on vent with 100% FIO2, 10PEEP - Cardiovascular Cardiovascular exam: Present: +S1, +S2 - GI/Abdominal GI/Abdominal exam: Present: normal bowel sounds, soft Additional comments: OG with trickle tube feeds infusing - Additional comments: [place] with yellow urine - Extremities Exam Additional comments: generalized edema to upper and lower extremities - Neurological Exam Additional comments: Sedated on vent - Skin Skin exam: Present: dry, pallor, warm Palliative Quality Palliative Quality: Screen for Code Status: Yes, Screen for Goals of Care: Yes, Screen for Pain: Yes, If Pain Regimen Started, Initiate Bowel Regimen: NA, Screen for Nausea/Vomitting: Yes Code Status: 12/31/16 19:56 Resuscitation Status: Active [RES] Routine Comment: Resuscitation Status: DNR-Comfort Care-Arrest Resuscitation Status: Active [RES] Routine Comment: Resuscitation Status: Full Code 01/03/17 08:57 DNR [Resuscitation Status: Active] [RES] Routine Comment: Resuscitation Status: Full Code 01/03/17 10:21 DNR [Resuscitation Status: Active] [RES] Routine Comment: Resuscitation Status: DNR-Comfort Care-Arrest 01/03/17 15:49 DNR [Resuscitation Status: Active] [RES] Routine Comment: No re-intubation after extubation Resuscitation Status: DNR-Comfort Care-Arrest - Labs CBC & Chem 7: 01/04/17 04:21 01/04/17 04:21 Labs: Laboratory Results - last 24 hr 01/03/17 01/03/17 01/03/17 03:53 07:20 12:03 WBC RBC Hgb Hct MCV MCH MCHC RDW Plt Count MPV Immature Gran % Seg Neutrophils % Lymphocytes % Monocytes % Eosinophils % Basophils % Neutrophils # Lymphocytes # Monocytes # Eosinophils # Basophils # Nucleated RBCs/100 WBC Reactive Lymphocytes Platelet Estimate Anisocytosis Macrocytosis ABG pH ABG pCO2 ABG pO2 ABG HCO3 ABG Total CO2 ABG O2 Saturation ABG Base Excess Respiration Rate Blood Gas Modality Inspired O2 Tidal Volume PEEP Sodium Potassium Chloride Carbon Dioxide BUN Creatinine Est GFR ( Amer) Est GFR (Non-Af Amer) BUN/Creatinine Ratio Glucose POC Glucose 154 H 99 H 72 Calculated Osmolality Calcium 01/03/17 01/03/17 01/03/17 15:53 19:15 23:40 WBC RBC Hgb Hct MCV MCH MCHC RDW Plt Count MPV Immature Gran % Seg Neutrophils % Lymphocytes % Monocytes % Eosinophils % Basophils % Neutrophils # Lymphocytes # Monocytes # Eosinophils # Basophils # Nucleated RBCs/100 WBC Reactive Lymphocytes Platelet Estimate Anisocytosis Macrocytosis ABG pH ABG pCO2 ABG pO2 ABG HCO3 ABG Total CO2 ABG O2 Saturation ABG Base Excess Respiration Rate Blood Gas Modality Inspired O2 Tidal Volume PEEP Sodium Potassium Chloride Carbon Dioxide BUN Creatinine Est GFR ( Amer) Est GFR (Non-Af Amer) BUN/Creatinine Ratio Glucose POC Glucose 85 143 H 168 H Calculated Osmolality Calcium 01/04/17 01/04/17 01/04/17 04:21 04:21 04:41 WBC 23.5 H D RBC 3.01 L Hgb 9.4 L Hct 29.2 L MCV 97.0 MCH 31.2 MCHC 32.2 RDW 15.9 H Plt Count 129 L MPV 10.8 Immature Gran % 1.3 Seg Neutrophils % 87.3 Lymphocytes % 6.4 Monocytes % 3.2 Eosinophils % 1.7 Basophils % 0.1 Neutrophils # 20.5 H Lymphocytes # 1.5 Monocytes # 0.8 Eosinophils # 0.4 Basophils # 0.0 Nucleated RBCs/100 WBC 0.1 H Reactive Lymphocytes Present A Platelet Estimate Slight Decrease L Anisocytosis 1+ A Macrocytosis Present A ABG pH 7.32 ABG pCO2 33 L ABG pO2 338 H ABG HCO3 17.0 L ABG Total CO2 18.0 L ABG O2 Saturation 100 H ABG Base Excess -8.3 L Respiration Rate 12 Blood Gas Modality ASSIST CONTROL Inspired O2 80 Tidal Volume 550 PEEP 12 Sodium 142 Potassium 3.7 Chloride 115 H Carbon Dioxide 17 L BUN 66 H Creatinine 2.18 H Est GFR ( Amer) 35 L Est GFR (Non-Af Amer) 29 L BUN/Creatinine Ratio 30 H Glucose 110 H POC Glucose Calculated Osmolality 314 H Calcium 8.4 L - Impressions Impressions Chest X-Ray 01/04/17 07:31 IMPRESSION: Stable chest. D/ / 01/04/2017 08:07:07 Leydi Araujo MD / yue Interpreting Provider: Leydi Araujo MD - ABG Interpretation ABG results: ABG ABG pH 7.32 pH Units (7.32-7.45) 01/04/17 04:41 ABG pCO2 33 mmHg (35-45) L 01/04/17 04:41 ABG pO2 338 mmHg (85-104) H 01/04/17 04:41 ABG O2 Saturation 100 % (95-98) H 01/04/17 04:41 PT/INR, D-dimer PT 16.0 Seconds (9.4-12.1) H 01/01/17 03:30 D-Dimer 4038 ng/mLFEU (0-500) H 01/01/17 06:20 Consult Discharge Plan - Plan Referrals: Tesfaye Brock DO [Primary Care Provider] -
--- NOTE | 2017-01-04 12:50 | Pulmonology Progress Note ---
<Nik Flaherty - Last Filed: 01/04/17 13:02> Date of Encounter: 01/04/17 Time of Encounter: 08:30 Assessment and Plan (1) Septic shock Current Visit: Yes Status: Acute 1. Sepsis Source currently unknown; potentially wound and/or respiratory WBC peaked at 26.7. 14.9 > 23.5. Oliguria and ileus. Microbiology: UA did not show UTI. Non-healing surgical wound cultured - Staph. aureus. Methacillin sensativity not given; must assume MRSA at this time. Blood cultures pending. Sputum culture - GBS. Troponin elevation 01/03 of 0.07. Likely combination of demand ischemia from sepsis and decreased filtration from CKD. Palliative care has spoken with the patient's family. Patient now DNR-CCA. 02 Jan 2017: CT head w/o contrast: No acute intracranial abnormality. 01 Jan 2017: KUB: OG catheter tip projects over gastric body/fundus. Persistent colonic dilation. 01 Jan 2017: CXR: Right subclavian central line with tip in lower SVC. ET tube above kia. 01 Jan 2017: CXR: new right basilar opacity suspicious for pneumonia, stable small left pleural effusion with suspected new small right pleural effusion. Enteric tube tip within the stomach. 31 Dec 2016: KUB: Enteric tube coiled within gastric fundus. Nonspecific bowel gas pattern compatible with ileus. BL pleural effusion. - Discontinue vancomycin @ day 5 (today). - Continue empiric meropenem day 4 - BP support with levophed 2. Acute respiratory failure Cause uncertain. Suspected related to aspiration event vs PNA. Patient intubated. After period of difficultly with oxygenation yesterday, PEEP was increased which caused intermittent hypotension. Today, will minimize PEEP while maintaining oxygenation and monitoring BP. - Continue daily CPAP trials to evaluate for extubation. 3. 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 15cm length x 3cm width x 1cm depth. Skin overlays pericardial sac; heartbeat visible below skin. Mostly well scarred tissue. Central granulation tissue with inferior eschar which produces pus. - Plan as above 4. Ileus Bowel sounds hypoactive. - Continue bowel regimen. - NG tube remains in place on low intermittent suction. - Continue trickle tube feedings. 5. 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 - Wound care per nursing. - Rectal tube placed as patient was incontinent of stool and had stool leakage around/into ulcer. 6. CAD s/p CABG. Mild elevation in troponin on Dec. No evidence of acute ischemic or thromobitic event. Suspect elevated troponin secondary to demand ischemia and poor renal clearance. 01 Jan 2017: Cardiac Echo: Suboptimal study. Mild LV diastolic dysfunction, LV systolic function appears normal. No pericardial effusion. 31 Dec 2016: EKG in ER: Sinus tachycardia. 7. Chronic CKD CKD stage III. Currently oliguric. Cr 2.29 > 2.18. - Continue monitoring. - IF worsens, will consult nephrology. 8. Hx CABG 9. DVT prophylaxis via heparin SQ. PUD prophylaxis via protonix IVP. (2) Acute respiratory failure, unspecified whether with hypoxia or hypercapnia Current Visit: Yes Status: Acute Plan as above. Qualifiers: Respiratory failure complication: hypoxia Qualified Code(s): J96.01 - Acute respiratory failure with hypoxia (3) Nonhealing surgical wound Current Visit: No Status: Chronic Plan as above. Qualifiers: Encounter type: subsequent encounter Qualified Code(s): T81.89XD - Other complications of procedures, not elsewhere classified, subsequent encounter (4) Ileus, unspecified Current Visit: Yes Status: Acute Plan as above. (5) Decubitus ulcer of sacral area Current Visit: Yes Status: Acute Plan as above. Qualifiers: Pressure ulcer stage: stage 1 Qualified Code(s): L89.151 - Pressure ulcer of sacral region, stage 1 (6) CAD (coronary artery disease), [place] coronary artery Current Visit: Yes Status: Chronic Plan as above. Qualifiers: [place] vs. transplanted heart: [place] heart Associated angina: with unspecified angina Qualified Code(s): I25.119 - Atherosclerotic heart disease of [place] coronary artery with unspecified angina pectoris (7) CKD (chronic kidney disease) stage 3, GFR 30-59 ml/min Current Visit: Yes Status: Chronic Plan as above. (8) Hx of CABG Current Visit: Yes Status: Chronic Plan as above. Subjective Principal diagnosis: Respiratory failure Interval history: Mr. Mccoy remains intubated. Appears comfortable. No acute events overnight. Objective PUL Vital signs: Last Vital Signs Temp 98.3 F 01/04/17 08:00 Pulse 79 01/04/17 11:45 Resp 12 01/04/17 11:44 BP 114/40 01/04/17 11:00 Pulse Ox 100 01/04/17 11:44 Ventilator Settings Ventilator Settings: Ventilator Settings, Last 8 Hours Ventilator Mode VC+ Ventilator Mode VC+ Ventilator Mode VC+ Ventilator Mode VC+ Ventilator Mode VC+ Ventilator Mode A/C Ventilator Mode A/C Ventilator Mode A/C Ventilator Mode A/C Ventilator Tidal Volume 550 Setting Ventilator Tidal Volume 550 Setting Ventilator Tidal Volume 550 Setting Ventilator Tidal Volume 550 Setting Ventilator Tidal Volume 550 Setting Ventilator Tidal Volume 550 Setting Ventilator Tidal Volume 550 Setting Ventilator Tidal Volume 550 Setting Ventilator Tidal Volume 550 Setting Ventilator Respiratory Rate 12 Setting Ventilator Respiratory Rate 12 Setting Ventilator Respiratory Rate 12 Setting Ventilator Respiratory Rate 12 Setting Ventilator Respiratory Rate 12 Setting Ventilator Respiratory Rate 12 Setting Ventilator Respiratory Rate 12 Setting Ventilator Respiratory Rate 12 Setting Ventilator Respiratory Rate 12 Setting Actual Respiratory Rate 12 Actual Respiratory Rate 12 Actual Respiratory Rate 12 Actual Respiratory Rate 16 Actual Respiratory Rate 17 Actual Respiratory Rate 16 Actual Respiratory Rate 12 Actual Respiratory Rate 16 Actual Respiratory Rate 17 Positive End Expiratory 10 Pressure Positive End Expiratory 10 Pressure Positive End Expiratory 10 Pressure Positive End Expiratory 10 Pressure Positive End Expiratory 10 Pressure Positive End Expiratory 10 Pressure Positive End Expiratory 10 Pressure Positive End Expiratory 10 Pressure Positive End Expiratory 12 Pressure Peak Inspiratory Airway 23 Pressure Peak Inspiratory Airway 27 Pressure Peak Inspiratory Airway 27 Pressure Peak Inspiratory Airway 30 Pressure Peak Inspiratory Airway 29 Pressure Peak Inspiratory Airway 33 Pressure Peak Inspiratory Airway 36 Pressure Peak Inspiratory Airway 32 Pressure Peak Inspiratory Airway 36 Pressure Results - Laboratory Findings CBC and BMP: 01/04/17 04:21 01/04/17 04:21 ABG ABG pH 7.32 pH Units (7.32-7.45) 01/04/17 04:41 ABG pCO2 33 mmHg (35-45) L 01/04/17 04:41 ABG pO2 338 mmHg (85-104) H 01/04/17 04:41 ABG O2 Saturation 100 % (95-98) H 01/04/17 04:41 PT/INR, D-dimer PT 16.0 Seconds (9.4-12.1) H 01/01/17 03:30 D-Dimer 4038 ng/mLFEU (0-500) H 01/01/17 06:20 Abnormal lab findings: Abnormal lab results WBC 23.5 K/mcL (4.3-11.1) H D 01/04/17 04:21 RBC 3.01 M/mcL (4.19-5.50) L 01/04/17 04:21 Hgb 9.4 g/dL (12.9-16.9) L 01/04/17 04:21 Hct 29.2 % (37.5-50.1) L 01/04/17 04:21 RDW 15.9 % (11.5-14.5) H 01/04/17 04:21 Plt Count 129 K/mcL (140-400) L 01/04/17 04:21 Band Neutrophils % 22.0 % (0-4) H 01/02/17 03:45 Metamyelocytes % 2.0 % (0) H 01/02/17 03:45 Neutrophils # 20.5 K/mcL (1.6-8.9) H 01/04/17 04:21 Nucleated RBCs/100 WBC 0.1 /100 WBC (0) H 01/04/17 04:21 Reactive Lymphocytes Present (Not Present) A 01/04/17 04:21 Platelet Estimate Slight Decrease (Normal) L 01/04/17 04:21 Anisocytosis 1+ (Not Present) A 01/04/17 04:21 Macrocytosis Present (Not Present) A 01/04/17 04:21 PT 16.0 Seconds (9.4-12.1) H 01/01/17 03:30 Fibrinogen 456 mg/dL (169-393) H 01/01/17 06:20 D-Dimer 4038 ng/mLFEU (0-500) H 01/01/17 06:20 ABG pCO2 33 mmHg (35-45) L 01/04/17 04:41 ABG pO2 338 mmHg (85-104) H 01/04/17 04:41 ABG HCO3 17.0 mEQ/L (21-27) L 01/04/17 04:41 ABG Total CO2 18.0 mEq/L (20-26) L 01/04/17 04:41 ABG O2 Saturation 100 % (95-98) H 01/04/17 04:41 ABG Base Excess -8.3 mEq/L (-2.0 to 3.0) L 01/04/17 04:41 Chloride 115 mEq/L (98-109) H 01/04/17 04:21 Carbon Dioxide 17 mEq/L (19-29) L 01/04/17 04:21 BUN 66 mg/dL (8-26) H 01/04/17 04:21 Creatinine 2.18 mg/dL (0.72-1.25) H 01/04/17 04:21 Est GFR ( Amer) 35 (> 60) L 01/04/17 04:21 Est GFR (Non-Af Amer) 29 (> 60) L 01/04/17 04:21 BUN/Creatinine Ratio 30 (6-26) H 01/04/17 04:21 Glucose 110 mg/dL (70-99) H 01/04/17 04:21 POC Glucose 168 (58-89) H 01/03/17 23:40 Hemoglobin A1c 6.3 % (-5.6) H 12/31/16 18:41 Calculated Osmolality 314 (280-300) H 01/04/17 04:21 Calcium 8.4 mg/dL (8.6-10.8) L 01/04/17 04:21 Ionized Calcium 1.07 mmol/L (1.15-1.35) L 01/03/17 03:30 Phosphorus 5.9 mg/dL (2.3-4.7) H 01/03/17 03:30 Lactate Dehydrogenase 129 Units/L (159-327) L 01/01/17 06:20 Troponin I 0.07 ng/mL (0-0.03) H* 01/03/17 03:30 C-Reactive Protein 150 mg/L (Less than 5) H 12/31/16 21:04 B-Natriuretic Peptide 232 pg/mL (0-100) H 12/31/16 18:41 Serum Total Protein 5.2 g/dL (6.0-8.3) L D 01/01/17 06:20 Albumin 2.1 g/dL (3.5-5.0) L D 01/01/17 06:20 Albumin/Globulin Ratio 0.7 (1.1-2.2) L 01/01/17 06:20 Urine Protein 100 mg/dL (Neg-Trace) H 12/31/16 19:09 Urine Microscopic RBC 3-5 per hpf (0-3) H 12/31/16 19:09 Ur Squamous Epith Cells Many per lpf (None-Few) H 12/31/16 19:09 Amorphous Sediment Moderate (Few) H 12/31/16 19:09 Granular Casts Few per lpf (None Seen) H 12/31/16 19:09 Vancomycin Trough 20.2 mcg/mL (10-20) H* 01/03/17 08:00 - Microbiology Findings Microbiology Findings: Microbiology, Last 48 Hours 01/02/17 12:39 Wound Culture - Final Chest Staphylococcus aureus - Clinical Findings Intake & Output: Intake & Output 01/03/17 01/04/17 01/04/17 23:59 07:59 15:59 Intake Total 496 / 496 580 / 580 450 / 450 Output Total 200 / 200 300 / 300 200 / 200 Balance 296 / 296 280 / 280 250 / 250 Weight 78.653 kg - VTE Documentation of Mechanical Device: Intermittent pneumatic compression device Consult Discharge Plan - Plan Referrals: Tesfaye Brock DO [Primary Care Provider] - <Danika Etienne - Last Filed: 01/04/17 16:43> Date of Encounter: 01/04/17 Objective PUL Vital signs: Last Vital Signs Temp 97.7 F 01/04/17 12:00 Pulse 86 01/04/17 15:00 Resp 12 01/04/17 15:00 BP 114/36 01/04/17 15:00 Pulse Ox 92 01/04/17 15:00 Ventilator Settings Ventilator Settings: Ventilator Settings, Last 8 Hours Ventilator Mode VC+ Ventilator Mode VC+ Ventilator Mode VC+ Ventilator Mode VC+ Ventilator Mode VC+ Ventilator Mode VC+ Ventilator Mode VC+ Ventilator Mode VC+ Ventilator Mode VC+ Ventilator Tidal Volume 550 Setting Ventilator Tidal Volume 550 Setting Ventilator Tidal Volume 550 Setting Ventilator Tidal Volume 550 Setting Ventilator Tidal Volume 550 Setting Ventilator Tidal Volume 550 Setting Ventilator Tidal Volume 550 Setting Ventilator Tidal Volume 550 Setting Ventilator Tidal Volume 550 Setting Ventilator Respiratory Rate 12 Setting Ventilator Respiratory Rate 12 Setting Ventilator Respiratory Rate 12 Setting Ventilator Respiratory Rate 12 Setting Ventilator Respiratory Rate 12 Setting Ventilator Respiratory Rate 12 Setting Ventilator Respiratory Rate 12 Setting Ventilator Respiratory Rate 12 Setting Ventilator Respiratory Rate 12 Setting Actual Respiratory Rate 12 Actual Respiratory Rate 12 Actual Respiratory Rate 12 Actual Respiratory Rate 12 Actual Respiratory Rate 12 Actual Respiratory Rate 12 Actual Respiratory Rate 12 Actual Respiratory Rate 12 Actual Respiratory Rate 16 Positive End Expiratory 8 Pressure Positive End Expiratory 8 Pressure Positive End Expiratory 8 Pressure Positive End Expiratory 8 Pressure Positive End Expiratory 8 Pressure Positive End Expiratory 10 Pressure Positive End Expiratory 10 Pressure Positive End Expiratory 10 Pressure Positive End Expiratory 10 Pressure Peak Inspiratory Airway 25 Pressure Peak Inspiratory Airway 25 Pressure Peak Inspiratory Airway 25 Pressure Peak Inspiratory Airway 25 Pressure Peak Inspiratory Airway 25 Pressure Peak Inspiratory Airway 23 Pressure Peak Inspiratory Airway 27 Pressure Peak Inspiratory Airway 27 Pressure Peak Inspiratory Airway 30 Pressure Results - Laboratory Findings CBC and BMP: 01/04/17 04:21 01/04/17 04:21 ABG ABG pH 7.32 pH Units (7.32-7.45) 01/04/17 04:41 ABG pCO2 33 mmHg (35-45) L 01/04/17 04:41 ABG pO2 338 mmHg (85-104) H 01/04/17 04:41 ABG O2 Saturation 100 % (95-98) H 01/04/17 04:41 PT/INR, D-dimer PT 16.0 Seconds (9.4-12.1) H 01/01/17 03:30 D-Dimer 4038 ng/mLFEU (0-500) H 01/01/17 06:20 Abnormal lab findings: Abnormal lab results WBC 23.5 K/mcL (4.3-11.1) H D 01/04/17 04:21 RBC 3.01 M/mcL (4.19-5.50) L 01/04/17 04:21 Hgb 9.4 g/dL (12.9-16.9) L 01/04/17 04:21 Hct 29.2 % (37.5-50.1) L 01/04/17 04:21 RDW 15.9 % (11.5-14.5) H 01/04/17 04:21 Plt Count 129 K/mcL (140-400) L 01/04/17 04:21 Band Neutrophils % 22.0 % (0-4) H 01/02/17 03:45 Metamyelocytes % 2.0 % (0) H 01/02/17 03:45 Neutrophils # 20.5 K/mcL (1.6-8.9) H 01/04/17 04:21 Nucleated RBCs/100 WBC 0.1 /100 WBC (0) H 01/04/17 04:21 Reactive Lymphocytes Present (Not Present) A 01/04/17 04:21 Platelet Estimate Slight Decrease (Normal) L 01/04/17 04:21 Anisocytosis 1+ (Not Present) A 01/04/17 04:21 Macrocytosis Present (Not Present) A 01/04/17 04:21 PT 16.0 Seconds (9.4-12.1) H 01/01/17 03:30 Fibrinogen 456 mg/dL (169-393) H 01/01/17 06:20 D-Dimer 4038 ng/mLFEU (0-500) H 01/01/17 06:20 ABG pCO2 33 mmHg (35-45) L 01/04/17 04:41 ABG pO2 338 mmHg (85-104) H 01/04/17 04:41 ABG HCO3 17.0 mEQ/L (21-27) L 01/04/17 04:41 ABG Total CO2 18.0 mEq/L (20-26) L 01/04/17 04:41 ABG O2 Saturation 100 % (95-98) H 01/04/17 04:41 ABG Base Excess -8.3 mEq/L (-2.0 to 3.0) L 01/04/17 04:41 Chloride 115 mEq/L (98-109) H 01/04/17 04:21 Carbon Dioxide 17 mEq/L (19-29) L 01/04/17 04:21 BUN 66 mg/dL (8-26) H 01/04/17 04:21 Creatinine 2.18 mg/dL (0.72-1.25) H 01/04/17 04:21 Est GFR ( Amer) 35 (> 60) L 01/04/17 04:21 Est GFR (Non-Af Amer) 29 (> 60) L 01/04/17 04:21 BUN/Creatinine Ratio 30 (6-26) H 01/04/17 04:21 Glucose 110 mg/dL (70-99) H 01/04/17 04:21 POC Glucose 168 (58-89) H 01/03/17 23:40 Hemoglobin A1c 6.3 % (-5.6) H 12/31/16 18:41 Calculated Osmolality 314 (280-300) H 01/04/17 04:21 Calcium 8.4 mg/dL (8.6-10.8) L 01/04/17 04:21 Ionized Calcium 1.07 mmol/L (1.15-1.35) L 01/03/17 03:30 Phosphorus 5.9 mg/dL (2.3-4.7) H 01/03/17 03:30 Lactate Dehydrogenase 129 Units/L (159-327) L 01/01/17 06:20 Troponin I 0.07 ng/mL (0-0.03) H* 01/03/17 03:30 C-Reactive Protein 150 mg/L (Less than 5) H 12/31/16 21:04 B-Natriuretic Peptide 232 pg/mL (0-100) H 12/31/16 18:41 Serum Total Protein 5.2 g/dL (6.0-8.3) L D 01/01/17 06:20 Albumin 2.1 g/dL (3.5-5.0) L D 01/01/17 06:20 Albumin/Globulin Ratio 0.7 (1.1-2.2) L 01/01/17 06:20 Urine Protein 100 mg/dL (Neg-Trace) H 12/31/16 19:09 Urine Microscopic RBC 3-5 per hpf (0-3) H 12/31/16 19:09 Ur Squamous Epith Cells Many per lpf (None-Few) H 12/31/16 19:09 Amorphous Sediment Moderate (Few) H 12/31/16 19:09 Granular Casts Few per lpf (None Seen) H 12/31/16 19:09 Vancomycin Trough 20.2 mcg/mL (10-20) H* 01/03/17 08:00 - Microbiology Findings Microbiology Findings: Microbiology, Last 48 Hours 01/02/17 12:39 Wound Culture - Final Chest Staphylococcus aureus - Clinical Findings Intake & Output: Intake & Output 01/04/17 01/04/17 01/04/17 07:59 15:59 23:59 Intake Total 580 / 580 721 / 721 Output Total 300 / 300 275 / 275 Balance 280 / 280 446 / 446 Weight 78.653 kg - Attending Attestation I examined this patient and my medical decision-making was reviewed with the SLIP LASTER/PA/Advanced Practice Nurse/Resident Physician. I agree with the documented findings, disposition and treatment plan as described except to the extent set forth below. Patient seen and examined. Labs, radiology, chart personally reviewed. Agree with resident's history and physical, assessment, plan with following comments: BATCH DUMPER: Patient is sedated and not following commands Pulmonary: Patient has been having problems with oxygenation and adjusted his PEEP and FIO2, however problem with that patient blood pressure deteriorate and received fluid as well as increased Levothroid. Checked for AutoPEEP and increased FIO2 with lowering PEEP it helped some and not ready for SBT. I feel patient is not going to do well and not having bony structure it is difficult for patient. Cardiovascular: Should not remain in shock and treatment of septic shock as well as supporting him with volume and fluid. GI: Nutrition per dietary and GI prophylaxis per routine Heme: DVT prophylaxis per routine ID: Continue antibiotics and plan to de-escalation Renal; urine out put and renal funtion reviewed Endorcine: blood glucose is monitored Lines: all lines checked and no evidence of infections Skin: skin care to prevent pressure ulcers per nursing routine care I spent 35 min of Critical Care time with this patient. It involved decision making of high complexity to assess, manipulate, and support vital organ system failure and/or to prevent further life threatening deterioration of the patient' s condition. The time involved in the performance of separately reportable procedures was not counted toward critical care time.
[2017-01-05] MEDS: Insulin LISPRO 300 UNITS/3 ML VIAL SQ SCH ×4 (00:14→12:34)
[2017-01-05] MEDS: Ipratropium/Albuterol Neb 3 ML IH SCH ×4 (00:17→11:24)
[2017-01-05] MEDS: Acetylcysteine 10% 2 ML INHSOL IH SCH ×4 (00:17→11:24)
[2017-01-05] MEDS: Norepinephrine 4 MG in D5% in Water 250 ML IVC SCH ×3 (04:51→12:33)
[2017-01-05] MEDS: Meropenem 1,000 MG in 0.9 % Sodium Chloride Mini Bag 100 ML IVPB SCH (04:51)
[2017-01-05] MEDS: Lacri-Lube 3.5 GM TUBE BOTH EYES SCH ×3 (04:51→12:34)
[2017-01-05 05:04] LABS: Hemoglobin 8.4 g/dL (12.9-16.9); Nucleated Red Blood Cells 0.2 /100 WBC (0)
[2017-01-05 05:06] LABS: Basophils % 0.2 %; Calcium 8.1 mg/dL (8.6-10.8); Eosinophils # 0.4 K/mcL (0.0-0.6); Eosinophils % 3.1 %; Hematocrit 26.6 % (37.5-50.1); Immature Granulocytes % 3.8 % (0-4); Immature Platelets 4.4 % (1.1-6.1); Lymphocytes # 0.6 K/mcL (0.6-4.6); Lymphocytes % 4.6 %; Mean Corpuscular HGB Conc 31.6 g/dL (31.6-35.5); Mean Corpuscular Hemoglobin 31.6 pg (28.0-33.3); Mean Platelet Volume 11.1 fL (9.4-12.4); Monocytes # 0.8 K/mcL (0.0-1.3); Monocytes % 5.9 %; Neutrophils # 10.9 K/mcL (1.6-8.9); Potassium 4.9 mEq/L (3.5-4.5); Red Blood Count 2.66 M/mcL (4.19-5.50); Red Cell Distribution Width 15.9 % (11.5-14.5); Segmented Neutrophils % 82.4 %
[2017-01-05 05:13] LABS: Platelet Count 90 K/mcL (140-400)
[2017-01-05 05:14] LABS: ABG Base Excess -10.6 mEq/L (-2.0 to 3.0); ABG HCO3 16.4 mEQ/L (21-27); ABG Oxygen Saturation 100 % (95-98); ABG PCO2 40 mmHg (35-45); ABG PH 7.22 pH Units (7.32-7.45); ABG PO2 382 mmHg (85-104); ABG TCO2 17.6 mEq/L (20-26); Blood Gas FiO2 100 %
[2017-01-05] MEDS: Budesonide/Formoterol 160/4.5 MDI IH SCH (07:55)
[2017-01-05] MEDS: Chlorhexidine Rinse 15 ML MOUTHWASH MM SCH (07:57)
[2017-01-05] MEDS: Docusate Oral Soln 100 MG/10 ML UDC GTUBE SCH (07:57)
[2017-01-05] MEDS: Pantoprazole 40 MG VIAL IVPB SCH (07:58)
[2017-01-05] MEDS: *HR* Heparin 5,000 UNIT/ML VIAL SQ SCH (07:58)
[2017-01-05] MEDS: Silvasorb 44.4 ML TUBE TP SCH (08:01)
[2017-01-05] MEDS: FentaNYL (PF) 1,000 MCG in 0.9 % Sodium Chloride 80 ML IVC SCH (08:04)
--- NOTE | 2017-01-05 08:28 | Pulmonology Progress Note ---
<ReynoldNik Bauer - Last Filed: 01/05/17 08:26> Date of Encounter: 01/05/17 Time of Encounter: 07:30 Assessment and Plan (1) Septic shock Current Visit: Yes Status: Acute 1. Sepsis Source currently unknown; potentially wound and/or respiratory WBC peaked at 26.7. 14.9 > 23.5. Oliguria and ileus. Palliative care has spoken with the patient's family. Patient now DNR-CC. - PLAN ON TERMINAL EXTUBATION AT 13:00 TODAY. Microbiology: UA did not show UTI. Non-healing surgical wound cultured - (+) Staph. aureus. Methacillin sensativity not given; must assume MRSA at this time. Blood cultures (-). Sputum culture - (+) GBS. Troponin peak 01/03 at 0.07. Now 0.05. Likely combination of demand ischemia from sepsis and decreased filtration from CKD. 04 Jan 2017: CXR: stable chest. 02 Jan 2017: CT head w/o contrast: No acute intracranial abnormality. 01 Jan 2017: KUB: OG catheter tip projects over gastric body/fundus. Persistent colonic dilation. 01 Jan 2017: CXR: Right subclavian central line with tip in lower SVC. ET tube above kia. 01 Jan 2017: CXR: new right basilar opacity suspicious for pneumonia, stable small left pleural effusion with suspected new small right pleural effusion. Enteric tube tip within the stomach. 31 Dec 2016: KUB: Enteric tube coiled within gastric fundus. Nonspecific bowel gas pattern compatible with ileus. BL pleural effusion. Vancomycin discontinued after day 5 (01/04/17) - Continue empiric meropenem day 5 - BP support with levophed 2. Acute respiratory failure Cause uncertain. Suspected related to aspiration event vs PNA. Patient intubated. After period of difficultly with oxygenation yesterday, PEEP was increased which caused intermittent hypotension. Today, will minimize PEEP while maintaining oxygenation and monitoring BP. - Continue daily CPAP trials to evaluate for extubation. 3. 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 15cm length x 3cm width x 1cm depth. Skin overlays pericardial sac; heartbeat visible below skin. Mostly well scarred tissue. Central granulation tissue with inferior eschar which produces pus. - Plan as above 4. Ileus Bowel sounds hypoactive. - Continue bowel regimen. - NG tube remains in place on low intermittent suction. - Continue trickle tube feedings. 5. 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 - Wound care per nursing. - Rectal tube placed 01/03/17 as patient was incontinent of stool and had stool leakage around/into ulcer. 6. CAD s/p CABG. Mild elevation in troponin on Dec. No evidence of acute ischemic or thromobitic event. Suspect elevated troponin secondary to demand ischemia and poor renal clearance. 01 Jan 2017: Cardiac Echo: Suboptimal study. Mild LV diastolic dysfunction, LV systolic function appears normal. No pericardial effusion. 31 Dec 2016: EKG in ER: Sinus tachycardia. 7. Chronic CKD CKD stage III. Currently oliguric. Cr 2.29 > 2.18 > 1.91. - Continue monitoring. 8. Hx CABG 9. DVT prophylaxis via heparin SQ. PUD prophylaxis via protonix IVP. (2) Acute respiratory failure, unspecified whether with hypoxia or hypercapnia Current Visit: Yes Status: Acute Plan as above. Qualifiers: Respiratory failure complication: hypoxia Qualified Code(s): J96.01 - Acute respiratory failure with hypoxia (3) Nonhealing surgical wound Current Visit: No Status: Chronic Plan as above. Qualifiers: Encounter type: subsequent encounter Qualified Code(s): T81.89XD - Other complications of procedures, not elsewhere classified, subsequent encounter (4) Ileus, unspecified Current Visit: Yes Status: Acute Plan as above. (5) Decubitus ulcer of sacral area Current Visit: Yes Status: Acute Plan as above. Qualifiers: Pressure ulcer stage: stage 1 Qualified Code(s): L89.151 - Pressure ulcer of sacral region, stage 1 (6) CAD (coronary artery disease), [place] coronary artery Current Visit: Yes Status: Chronic Plan as above. Qualifiers: [place] vs. transplanted heart: [place] heart Associated angina: with unspecified angina Qualified Code(s): I25.119 - Atherosclerotic heart disease of [place] coronary artery with unspecified angina pectoris (7) CKD (chronic kidney disease) stage 3, GFR 30-59 ml/min Current Visit: Yes Status: Chronic Plan as above. (8) Hx of CABG Current Visit: Yes Status: Chronic Plan as above. Subjective Principal diagnosis: Respiratory failure Interval history: Mr. Mccoy remains intubated. Appears comfortable. No acute events overnight. When spoken to loudly, he attempts to open his eyes. Objective PUL Vital signs: Last Vital Signs Temp 98.7 F 01/05/17 07:42 Pulse 98 01/05/17 06:00 Resp 13 01/05/17 07:54 BP 105/40 01/05/17 07:54 Pulse Ox 100 01/05/17 07:54 General appearance: no acute distress, other (intubated, sedated) Neck: supple Effort: normal Auscultation: bilateral: diminished breath sounds, rales Cardiovascular: regular rate and rhythm Gastrointestinal: hypoactive bowel sounds, soft, non-tender, non-distended Integumentary: normal Extremities: no cyanosis, pink and warm (hands), pulses normal, cool (feet without cyanosis; brisk capillary refill), edema (bilateral pedal edema) Musculoskeletal: no deformities pupils equal and round (Pupils sluggish.), other (sedated, intubated. Eyes ) mood appropriate, affect normal Ventilator Settings Ventilator Settings: Ventilator Settings, Last 8 Hours Ventilator Mode VC+ Ventilator Mode VC+ Ventilator Mode VC+ Ventilator Mode VC+ Ventilator Mode VC+ Ventilator Tidal Volume 550 Setting Ventilator Tidal Volume 550 Setting Ventilator Tidal Volume 550 Setting Ventilator Tidal Volume 550 Setting Ventilator Tidal Volume 550 Setting Ventilator Respiratory Rate 12 Setting Ventilator Respiratory Rate 12 Setting Ventilator Respiratory Rate 12 Setting Ventilator Respiratory Rate 12 Setting Ventilator Respiratory Rate 12 Setting Actual Respiratory Rate 12 Actual Respiratory Rate 12 Actual Respiratory Rate 12 Actual Respiratory Rate 12 Positive End Expiratory 8 Pressure Positive End Expiratory 8 Pressure Positive End Expiratory 8 Pressure Positive End Expiratory 8 Pressure Positive End Expiratory 8 Pressure Peak Inspiratory Airway 29 Pressure Peak Inspiratory Airway 28 Pressure Peak Inspiratory Airway 29 Pressure Peak Inspiratory Airway 28 Pressure Results - Laboratory Findings CBC and BMP: 01/05/17 04:42 01/05/17 04:42 ABG ABG pH 7.22 pH Units (7.32-7.45) L 01/05/17 04:54 ABG pCO2 40 mmHg (35-45) 01/05/17 04:54 ABG pO2 382 mmHg (85-104) H 01/05/17 04:54 ABG O2 Saturation 100 % (95-98) H 01/05/17 04:54 PT/INR, D-dimer PT 16.0 Seconds (9.4-12.1) H 01/01/17 03:30 D-Dimer 4038 ng/mLFEU (0-500) H 01/01/17 06:20 Abnormal lab findings: Abnormal lab results WBC 13.2 K/mcL (4.3-11.1) H 01/05/17 04:42 RBC 2.66 M/mcL (4.19-5.50) L 01/05/17 04:42 Hgb 8.4 g/dL (12.9-16.9) L 01/05/17 04:42 Hct 26.6 % (37.5-50.1) L 01/05/17 04:42 RDW 15.9 % (11.5-14.5) H 01/05/17 04:42 Plt Count 90 K/mcL (140-400) L 01/05/17 04:42 Band Neutrophils % 22.0 % (0-4) H 01/02/17 03:45 Metamyelocytes % 2.0 % (0) H 01/02/17 03:45 Neutrophils # 10.9 K/mcL (1.6-8.9) H 01/05/17 04:42 Nucleated RBCs/100 WBC 0.2 /100 WBC (0) H 01/05/17 04:42 Reactive Lymphocytes Present (Not Present) A 01/04/17 04:21 Platelet Estimate Slight Decrease (Normal) L 01/04/17 04:21 Anisocytosis 1+ (Not Present) A 01/04/17 04:21 Macrocytosis Present (Not Present) A 01/04/17 04:21 PT 16.0 Seconds (9.4-12.1) H 01/01/17 03:30 Fibrinogen 456 mg/dL (169-393) H 01/01/17 06:20 D-Dimer 4038 ng/mLFEU (0-500) H 01/01/17 06:20 ABG pH 7.22 pH Units (7.32-7.45) L 01/05/17 04:54 ABG pO2 382 mmHg (85-104) H 01/05/17 04:54 ABG HCO3 16.4 mEQ/L (21-27) L 01/05/17 04:54 ABG Total CO2 17.6 mEq/L (20-26) L 01/05/17 04:54 ABG O2 Saturation 100 % (95-98) H 01/05/17 04:54 ABG Base Excess -10.6 mEq/L (-2.0 to 3.0) L 01/05/17 04:54 Potassium 4.9 mEq/L (3.5-4.5) H 01/05/17 04:42 Chloride 113 mEq/L (98-109) H 01/05/17 04:42 Carbon Dioxide 16 mEq/L (19-29) L 01/05/17 04:42 BUN 63 mg/dL (8-26) H 01/05/17 04:42 Creatinine 1.91 mg/dL (0.72-1.25) H 01/05/17 04:42 Est GFR ( Amer) 41 (> 60) L 01/05/17 04:42 Est GFR (Non-Af Amer) 34 (> 60) L 01/05/17 04:42 BUN/Creatinine Ratio 33 (6-26) H 01/05/17 04:42 Glucose 137 mg/dL (70-99) H 01/05/17 04:42 POC Glucose 98 (58-89) H 01/05/17 00:00 Hemoglobin A1c 6.3 % (-5.6) H 12/31/16 18:41 Calculated Osmolality 308 (280-300) H 01/05/17 04:42 Calcium 8.1 mg/dL (8.6-10.8) L 01/05/17 04:42 Ionized Calcium 1.07 mmol/L (1.15-1.35) L 01/03/17 03:30 Phosphorus 5.9 mg/dL (2.3-4.7) H 01/03/17 03:30 Lactate Dehydrogenase 129 Units/L (159-327) L 01/01/17 06:20 Troponin I 0.05 ng/mL (0-0.03) H* 01/04/17 16:35 C-Reactive Protein 150 mg/L (Less than 5) H 12/31/16 21:04 B-Natriuretic Peptide 232 pg/mL (0-100) H 12/31/16 18:41 Serum Total Protein 5.2 g/dL (6.0-8.3) L D 01/01/17 06:20 Albumin 2.1 g/dL (3.5-5.0) L D 01/01/17 06:20 Albumin/Globulin Ratio 0.7 (1.1-2.2) L 01/01/17 06:20 Urine Protein 100 mg/dL (Neg-Trace) H 12/31/16 19:09 Urine Microscopic RBC 3-5 per hpf (0-3) H 12/31/16 19:09 Ur Squamous Epith Cells Many per lpf (None-Few) H 12/31/16 19:09 Amorphous Sediment Moderate (Few) H 12/31/16 19:09 Granular Casts Few per lpf (None Seen) H 12/31/16 19:09 Vancomycin Trough 20.2 mcg/mL (10-20) H* 01/03/17 08:00 - Microbiology Findings Microbiology Findings: Microbiology, Last 48 Hours 01/02/17 12:39 Wound Culture - Final Chest Staphylococcus aureus - Clinical Findings Intake & Output: Intake & Output 01/04/17 01/05/17 01/05/17 23:59 07:59 15:59 Intake Total 1016 / 1016 689 / 689 Output Total 300 / 300 325 / 325 Balance 716 / 716 364 / 364 Weight 86.1 kg - VTE Documentation of Mechanical Device: Intermittent pneumatic compression device Consult Discharge Plan - Plan Referrals: Tesfaye Brock DO [Primary Care Provider] - <Danika Etienne - Last Filed: 01/05/17 14:54> Date of Encounter: 01/05/17 Objective PUL Vital signs: Last Vital Signs Temp 98.7 F 01/05/17 08:00 Pulse 96 01/05/17 12:00 Resp 12 01/05/17 12:00 BP 118/42 01/05/17 12:00 Pulse Ox 100 01/05/17 12:00 Ventilator Settings Ventilator Settings: Ventilator Settings, Last 8 Hours Ventilator Mode VC+ Ventilator Mode VC+ Ventilator Mode VC+ Ventilator Mode VC+ Ventilator Mode VC+ Ventilator Mode VC+ Ventilator Tidal Volume 550 Setting Ventilator Tidal Volume 550 Setting Ventilator Tidal Volume 550 Setting Ventilator Tidal Volume 550 Setting Ventilator Tidal Volume 550 Setting Ventilator Tidal Volume 550 Setting Ventilator Respiratory Rate 12 Setting Ventilator Respiratory Rate 12 Setting Ventilator Respiratory Rate 12 Setting Ventilator Respiratory Rate 12 Setting Ventilator Respiratory Rate 12 Setting Ventilator Respiratory Rate 12 Setting Actual Respiratory Rate 12 Actual Respiratory Rate 12 Actual Respiratory Rate 12 Actual Respiratory Rate 12 Actual Respiratory Rate 12 Actual Respiratory Rate 12 Positive End Expiratory 8 Pressure Positive End Expiratory 8 Pressure Positive End Expiratory 8 Pressure Positive End Expiratory 8 Pressure Positive End Expiratory 8 Pressure Positive End Expiratory 8 Pressure Peak Inspiratory Airway 29 Pressure Peak Inspiratory Airway 29 Pressure Peak Inspiratory Airway 29 Pressure Peak Inspiratory Airway 29 Pressure Peak Inspiratory Airway 29 Pressure Peak Inspiratory Airway 29 Pressure Results - Laboratory Findings CBC and BMP: 01/05/17 04:42 01/05/17 04:42 ABG ABG pH 7.22 pH Units (7.32-7.45) L 01/05/17 04:54 ABG pCO2 40 mmHg (35-45) 01/05/17 04:54 ABG pO2 382 mmHg (85-104) H 01/05/17 04:54 ABG O2 Saturation 100 % (95-98) H 01/05/17 04:54 PT/INR, D-dimer PT 16.0 Seconds (9.4-12.1) H 01/01/17 03:30 D-Dimer 4038 ng/mLFEU (0-500) H 01/01/17 06:20 Abnormal lab findings: Abnormal lab results WBC 13.2 K/mcL (4.3-11.1) H 01/05/17 04:42 RBC 2.66 M/mcL (4.19-5.50) L 01/05/17 04:42 Hgb 8.4 g/dL (12.9-16.9) L 01/05/17 04:42 Hct 26.6 % (37.5-50.1) L 01/05/17 04:42 RDW 15.9 % (11.5-14.5) H 01/05/17 04:42 Plt Count 90 K/mcL (140-400) L 01/05/17 04:42 Band Neutrophils % 22.0 % (0-4) H 01/02/17 03:45 Metamyelocytes % 2.0 % (0) H 01/02/17 03:45 Neutrophils # 10.9 K/mcL (1.6-8.9) H 01/05/17 04:42 Nucleated RBCs/100 WBC 0.2 /100 WBC (0) H 01/05/17 04:42 Reactive Lymphocytes Present (Not Present) A 01/04/17 04:21 Platelet Estimate Slight Decrease (Normal) L 01/04/17 04:21 Anisocytosis 1+ (Not Present) A 01/04/17 04:21 Macrocytosis Present (Not Present) A 01/04/17 04:21 PT 16.0 Seconds (9.4-12.1) H 01/01/17 03:30 Fibrinogen 456 mg/dL (169-393) H 01/01/17 06:20 D-Dimer 4038 ng/mLFEU (0-500) H 01/01/17 06:20 ABG pH 7.22 pH Units (7.32-7.45) L 01/05/17 04:54 ABG pO2 382 mmHg (85-104) H 01/05/17 04:54 ABG HCO3 16.4 mEQ/L (21-27) L 01/05/17 04:54 ABG Total CO2 17.6 mEq/L (20-26) L 01/05/17 04:54 ABG O2 Saturation 100 % (95-98) H 01/05/17 04:54 ABG Base Excess -10.6 mEq/L (-2.0 to 3.0) L 01/05/17 04:54 Potassium 4.9 mEq/L (3.5-4.5) H 01/05/17 04:42 Chloride 113 mEq/L (98-109) H 01/05/17 04:42 Carbon Dioxide 16 mEq/L (19-29) L 01/05/17 04:42 BUN 63 mg/dL (8-26) H 01/05/17 04:42 Creatinine 1.91 mg/dL (0.72-1.25) H 01/05/17 04:42 Est GFR ( Amer) 41 (> 60) L 01/05/17 04:42 Est GFR (Non-Af Amer) 34 (> 60) L 01/05/17 04:42 BUN/Creatinine Ratio 33 (6-26) H 01/05/17 04:42 Glucose 137 mg/dL (70-99) H 01/05/17 04:42 POC Glucose 98 (58-89) H 01/05/17 00:00 Hemoglobin A1c 6.3 % (-5.6) H 12/31/16 18:41 Calculated Osmolality 308 (280-300) H 01/05/17 04:42 Calcium 8.1 mg/dL (8.6-10.8) L 01/05/17 04:42 Ionized Calcium 1.07 mmol/L (1.15-1.35) L 01/03/17 03:30 Phosphorus 5.9 mg/dL (2.3-4.7) H 01/03/17 03:30 Lactate Dehydrogenase 129 Units/L (159-327) L 01/01/17 06:20 Troponin I 0.05 ng/mL (0-0.03) H* 01/04/17 16:35 C-Reactive Protein 150 mg/L (Less than 5) H 12/31/16 21:04 B-Natriuretic Peptide 232 pg/mL (0-100) H 12/31/16 18:41 Serum Total Protein 5.2 g/dL (6.0-8.3) L D 01/01/17 06:20 Albumin 2.1 g/dL (3.5-5.0) L D 01/01/17 06:20 Albumin/Globulin Ratio 0.7 (1.1-2.2) L 01/01/17 06:20 Urine Protein 100 mg/dL (Neg-Trace) H 12/31/16 19:09 Urine Microscopic RBC 3-5 per hpf (0-3) H 12/31/16 19:09 Ur Squamous Epith Cells Many per lpf (None-Few) H 12/31/16 19:09 Amorphous Sediment Moderate (Few) H 12/31/16 19:09 Granular Casts Few per lpf (None Seen) H 12/31/16 19:09 Vancomycin Trough 20.2 mcg/mL (10-20) H* 01/03/17 08:00 - Microbiology Findings Microbiology Findings: Microbiology, Last 48 Hours 01/02/17 12:39 Wound Culture - Final Chest Staphylococcus aureus - Clinical Findings Intake & Output: Intake & Output 01/04/17 01/05/17 01/05/17 23:59 07:59 15:59 Intake Total 1016 / 1016 689 / 689 645 / 645 Output Total 300 / 300 325 / 325 Balance 716 / 716 364 / 364 645 / 645 Weight 86.1 kg - Attending Attestation I examined this patient and my medical decision-making was reviewed with the AUDIT ANALYST/PA/Advanced Practice Nurse/Resident Physician. I agree with the documented findings, disposition and treatment plan as described except to the extent set forth below. Patient seen and examined. Labs, radiology, chart personally reviewed. Agree with resident's history and physical, assessment, plan with following comments: VOCATIONAL EVALUATOR: Patient sedated Pulmonary: Lowered FIO2 and and patient was terminally extubated Cardiovascular: Septic shock, but family wanted to terminally extubate. GI: Nutrition per dietary and GI prophylaxis per routine Heme: DVT prophylaxis per routine ID: Continue antibiotics and plan to de-escalation Renal; urine out put and renal funtion reviewed Endorcine: blood glucose is monitored Lines: all lines checked and no evidence of infections Skin: skin care to prevent pressure ulcers per nursing routine care Prognosis is poor and discussed with the daughter at the bedside and palliative care and assistance appreciated
--- NOTE | 2017-01-05 10:55 | Palliative Progress Note ---
Date of Encounter: 01/05/17 Time of Encounter: 10:30 - Assessment and plan (1) Generalized pain Current Visit: Yes Status: Acute Assessment and plan: Currently receiving Fentanyl drip per ICU protocol. (2) Dyspnea Current Visit: Yes Status: Acute Assessment and plan: Plan is for compassionate extubation today. Will plan to have comfort medications available if needed. (3) Goals of care, counseling/discussion Current Visit: Yes Status: Acute Assessment and plan: Awaiting family to arrive, plan for compassionate extubation and comfort care only this afternoon. (4) Acute respiratory failure, unspecified whether with hypoxia or hypercapnia Current Visit: Yes Status: Acute Qualifiers: Respiratory failure complication: hypoxia Qualified Code(s): J96.01 - Acute respiratory failure with hypoxia (5) Aspiration pneumonia Current Visit: Yes Status: Acute Qualifiers: Aspiration pneumonia type: unspecified Laterality: unspecified laterality Lung location: unspecified part of lung Qualified Code(s): J69.0 - Pneumonitis due to inhalation of food and vomit - Time Spent With Patient Total time spent is greater than 50% in coordination of care (as documented) at patient's floor/unit and/or counseling patient: 25 - 35 minutes - Subjective Interval history: Patient continues on Levophed. Remains intubated with 80% FIO2 and 8 PEEP currently. Daughter Andrew at bedside and states she stayed the night. Awaiting other family members to arrive. - Constitutional Vitals: Abnormal lab results WBC 13.2 K/mcL (4.3-11.1) H 01/05/17 04:42 RBC 2.66 M/mcL (4.19-5.50) L 01/05/17 04:42 Hgb 8.4 g/dL (12.9-16.9) L 01/05/17 04:42 Hct 26.6 % (37.5-50.1) L 01/05/17 04:42 RDW 15.9 % (11.5-14.5) H 01/05/17 04:42 Plt Count 90 K/mcL (140-400) L 01/05/17 04:42 Band Neutrophils % 22.0 % (0-4) H 01/02/17 03:45 Metamyelocytes % 2.0 % (0) H 01/02/17 03:45 Neutrophils # 10.9 K/mcL (1.6-8.9) H 01/05/17 04:42 Nucleated RBCs/100 WBC 0.2 /100 WBC (0) H 01/05/17 04:42 Reactive Lymphocytes Present (Not Present) A 01/04/17 04:21 Platelet Estimate Slight Decrease (Normal) L 01/04/17 04:21 Anisocytosis 1+ (Not Present) A 01/04/17 04:21 Macrocytosis Present (Not Present) A 01/04/17 04:21 PT 16.0 Seconds (9.4-12.1) H 01/01/17 03:30 Fibrinogen 456 mg/dL (169-393) H 01/01/17 06:20 D-Dimer 4038 ng/mLFEU (0-500) H 01/01/17 06:20 ABG pH 7.22 pH Units (7.32-7.45) L 01/05/17 04:54 ABG pO2 382 mmHg (85-104) H 01/05/17 04:54 ABG HCO3 16.4 mEQ/L (21-27) L 01/05/17 04:54 ABG Total CO2 17.6 mEq/L (20-26) L 01/05/17 04:54 ABG O2 Saturation 100 % (95-98) H 01/05/17 04:54 ABG Base Excess -10.6 mEq/L (-2.0 to 3.0) L 01/05/17 04:54 Potassium 4.9 mEq/L (3.5-4.5) H 01/05/17 04:42 Chloride 113 mEq/L (98-109) H 01/05/17 04:42 Carbon Dioxide 16 mEq/L (19-29) L 01/05/17 04:42 BUN 63 mg/dL (8-26) H 01/05/17 04:42 Creatinine 1.91 mg/dL (0.72-1.25) H 01/05/17 04:42 Est GFR ( Amer) 41 (> 60) L 01/05/17 04:42 Est GFR (Non-Af Amer) 34 (> 60) L 01/05/17 04:42 BUN/Creatinine Ratio 33 (6-26) H 01/05/17 04:42 Glucose 137 mg/dL (70-99) H 01/05/17 04:42 POC Glucose 98 (58-89) H 01/05/17 00:00 Hemoglobin A1c 6.3 % (-5.6) H 12/31/16 18:41 Calculated Osmolality 308 (280-300) H 01/05/17 04:42 Calcium 8.1 mg/dL (8.6-10.8) L 01/05/17 04:42 Ionized Calcium 1.07 mmol/L (1.15-1.35) L 01/03/17 03:30 Phosphorus 5.9 mg/dL (2.3-4.7) H 01/03/17 03:30 Lactate Dehydrogenase 129 Units/L (159-327) L 01/01/17 06:20 Troponin I 0.05 ng/mL (0-0.03) H* 01/04/17 16:35 C-Reactive Protein 150 mg/L (Less than 5) H 12/31/16 21:04 B-Natriuretic Peptide 232 pg/mL (0-100) H 12/31/16 18:41 Serum Total Protein 5.2 g/dL (6.0-8.3) L D 01/01/17 06:20 Albumin 2.1 g/dL (3.5-5.0) L D 01/01/17 06:20 Albumin/Globulin Ratio 0.7 (1.1-2.2) L 01/01/17 06:20 Urine Protein 100 mg/dL (Neg-Trace) H 12/31/16 19:09 Urine Microscopic RBC 3-5 per hpf (0-3) H 12/31/16 19:09 Ur Squamous Epith Cells Many per lpf (None-Few) H 12/31/16 19:09 Amorphous Sediment Moderate (Few) H 12/31/16 19:09 Granular Casts Few per lpf (None Seen) H 12/31/16 19:09 Vancomycin Trough 20.2 mcg/mL (10-20) H* 01/03/17 08:00 General appearance: Present: no acute distress - Respiratory Additional comments: Breath sounds course - Cardiovascular Cardiovascular exam: Present: +S1, +S2 - GI/Abdominal GI/Abdominal exam: Present: distended, soft Additional comments: Feeds infusing at 15ml/hr - Additional comments: Urine clear yellow - Extremities Exam Additional comments: generalized edema to upper and lower extremities - Neurological Exam Additional comments: Sedated on vent - Skin Skin exam: Present: dry, pallor, warm Palliative Quality Palliative Quality: Screen for Code Status: Yes, Screen for Goals of Care: Yes, Screen for Pain: Yes, If Pain Regimen Started, Initiate Bowel Regimen: NA, Screen for Nausea/Vomitting: Yes Code Status: 12/31/16 19:56 Resuscitation Status: Active [RES] Routine Comment: Resuscitation Status: DNR-Comfort Care-Arrest Resuscitation Status: Active [RES] Routine Comment: Resuscitation Status: Full Code 01/03/17 08:57 DNR [Resuscitation Status: Active] [RES] Routine Comment: Resuscitation Status: Full Code 01/03/17 10:21 DNR [Resuscitation Status: Active] [RES] Routine Comment: Resuscitation Status: DNR-Comfort Care-Arrest 01/03/17 15:49 DNR [Resuscitation Status: Active] [RES] Routine Comment: No re-intubation after extubation Resuscitation Status: DNR-Comfort Care-Arrest 01/04/17 12:01 DNR [Resuscitation Status: Active] [RES] Routine Comment: Resuscitation Status: DNR-Comfort Care - Labs CBC & Chem 7: 01/05/17 04:42 01/05/17 04:42 Labs: Laboratory Results - last 24 hr 01/04/17 01/04/17 01/04/17 03:59 07:52 12:23 WBC RBC Hgb Hct MCV MCH MCHC RDW Plt Count MPV Immature Gran % Seg Neutrophils % Lymphocytes % Monocytes % Eosinophils % Basophils % Neutrophils # Lymphocytes # Monocytes # Eosinophils # Basophils # Nucleated RBCs/100 WBC Immature Plt Fraction ABG pH ABG pCO2 ABG pO2 ABG HCO3 ABG Total CO2 ABG O2 Saturation ABG Base Excess Blood Gas Modality Inspired O2 Sodium Potassium Chloride Carbon Dioxide BUN Creatinine Est GFR ( Amer) Est GFR (Non-Af Amer) BUN/Creatinine Ratio Glucose POC Glucose 110 H 126 H 183 H Calculated Osmolality Calcium Troponin I 01/04/17 01/04/17 01/04/17 16:02 16:35 16:35 WBC RBC Hgb Hct MCV MCH MCHC RDW Plt Count MPV Immature Gran % Seg Neutrophils % Lymphocytes % Monocytes % Eosinophils % Basophils % Neutrophils # Lymphocytes # Monocytes # Eosinophils # Basophils # Nucleated RBCs/100 WBC Immature Plt Fraction ABG pH ABG pCO2 ABG pO2 ABG HCO3 ABG Total CO2 ABG O2 Saturation ABG Base Excess Blood Gas Modality Inspired O2 Sodium Potassium 4.4 Chloride Carbon Dioxide BUN Creatinine Est GFR ( Amer) Est GFR (Non-Af Amer) BUN/Creatinine Ratio Glucose POC Glucose 166 H Calculated Osmolality Calcium Troponin I 0.05 H* 01/04/17 01/04/17 01/05/17 20:08 23:59 00:00 WBC RBC Hgb Hct MCV MCH MCHC RDW Plt Count MPV Immature Gran % Seg Neutrophils % Lymphocytes % Monocytes % Eosinophils % Basophils % Neutrophils # Lymphocytes # Monocytes # Eosinophils # Basophils # Nucleated RBCs/100 WBC Immature Plt Fraction ABG pH ABG pCO2 ABG pO2 ABG HCO3 ABG Total CO2 ABG O2 Saturation ABG Base Excess Blood Gas Modality Inspired O2 Sodium Potassium Chloride Carbon Dioxide BUN Creatinine Est GFR ( Amer) Est GFR (Non-Af Amer) BUN/Creatinine Ratio Glucose POC Glucose 101 H 94 H 98 H Calculated Osmolality Calcium Troponin I 01/05/17 01/05/17 01/05/17 04:42 04:42 04:54 WBC 13.2 H RBC 2.66 L Hgb 8.4 L Hct 26.6 L MCV 100.0 MCH 31.6 MCHC 31.6 RDW 15.9 H Plt Count 90 L MPV 11.1 Immature Gran % 3.8 Seg Neutrophils % 82.4 Lymphocytes % 4.6 Monocytes % 5.9 Eosinophils % 3.1 Basophils % 0.2 Neutrophils # 10.9 H Lymphocytes # 0.6 Monocytes # 0.8 Eosinophils # 0.4 Basophils # 0.0 Nucleated RBCs/100 WBC 0.2 H Immature Plt Fraction 4.4 ABG pH 7.22 L ABG pCO2 40 ABG pO2 382 H ABG HCO3 16.4 L ABG Total CO2 17.6 L ABG O2 Saturation 100 H ABG Base Excess -10.6 L Blood Gas Modality VCT Inspired O2 100 Sodium 139 Potassium 4.9 H Chloride 113 H Carbon Dioxide 16 L BUN 63 H Creatinine 1.91 H Est GFR ( Amer) 41 L Est GFR (Non-Af Amer) 34 L BUN/Creatinine Ratio 33 H Glucose 137 H POC Glucose Calculated Osmolality 308 H Calcium 8.1 L Troponin I - ABG Interpretation ABG results: ABG ABG pH 7.22 pH Units (7.32-7.45) L 01/05/17 04:54 ABG pCO2 40 mmHg (35-45) 01/05/17 04:54 ABG pO2 382 mmHg (85-104) H 01/05/17 04:54 ABG O2 Saturation 100 % (95-98) H 01/05/17 04:54 PT/INR, D-dimer PT 16.0 Seconds (9.4-12.1) H 01/01/17 03:30 D-Dimer 4038 ng/mLFEU (0-500) H 01/01/17 06:20 Consult Discharge Plan - Plan Referrals: Tesfaye Brock DO [Primary Care Provider] -
[2017-01-05 12:18] VITALS: BP 118/42
[2017-01-05] MEDS ORDERED: *HR* LORazepam 2 MG/ML VIAL IVP PRN (13:09)
--- NOTE | 2017-01-05 13:22 | Event Note ---
Date of Encounter: 01/05/17 Time of Encounter: 13:20 Multiple family members at bedside. Propofol off and tube feeding has been stopped. Fentanyl drip remains in place for pain/dyspnea management. Patient extubated to nasal cannula. Will continue comfort measures and assist with symptom management.
[2017-01-05] MEDS ORDERED: *HR* Morphine 2 MG/ML SYRINGE IVP PRN (13:24)
--- NOTE | 2017-01-05 17:13 | Discharge Summary ---
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 transplanted heart: [place] heart Associated angina: with unspecified angina Qualified Code(s): I25.119 - Atherosclerotic heart disease of [place] coronary artery with unspecified angina pectoris (7) CKD (chronic kidney disease) stage 3, GFR 30-59 ml/min Priority: Secondary Status: Chronic (8) Hx of CABG Priority: Secondary Status: Chronic - Discharge Medications Home Medications: Aspirin Enteric Coated [Aspirin EC] 81 mg PO DAILY 03/14/16 [History] Citalopram [CeleXA] 40 mg PO DAILY 03/14/16 [History] Insulin DETEMIR [Levemir Flextouch] 10 unit SQ HS 03/14/16 [History] Metformin [Glucophage] 500 mg PO BIDWM 03/14/16 [History] Multivits,Ca,Min/Iron/FA/Lycop [Centrum Men's Tablet] 1 each PO DAILY 03/14/16 [ History] Potassium Chloride [K-Tab ER] 20 meq PO DAILY 03/14/16 [History] Quetiapine Fumarate [SEROquel] 12.5 mg PO HS 03/14/16 [History] Ferrous Sulfate [Iron] 325 mg PO DAILY 01/01/17 [History] Insulin ASPART [Novolog Flexpen] 0 unit SQ TID PRN 01/01/17 [History] Allergies/Adverse Reactions: Allergies cephalexin Adverse Reaction (Verified 01/01/17 12:50) Rash Penicillins Adverse Reaction (Verified 01/01/17 12:50) Swelling of Lip/Tongue/Throat Labs on day of discharge: Labs from last 24 hours 01/05/17 01/05/17 01/05/17 04:54 04:42 04:42 WBC 13.2 H RBC 2.66 L Hgb 8.4 L Hct 26.6 L MCV 100.0 MCH 31.6 MCHC 31.6 RDW 15.9 H Plt Count 90 L MPV 11.1 Immature Gran % 3.8 Seg Neutrophils % 82.4 Lymphocytes % 4.6 Monocytes % 5.9 Eosinophils % 3.1 Basophils % 0.2 Neutrophils # 10.9 H Lymphocytes # 0.6 Monocytes # 0.8 Eosinophils # 0.4 Basophils # 0.0 Nucleated RBCs/100 WBC 0.2 H Immature Plt Fraction 4.4 ABG pH 7.22 L ABG pCO2 40 ABG pO2 382 H ABG HCO3 16.4 L ABG Total CO2 17.6 L ABG O2 Saturation 100 H ABG Base Excess -10.6 L Blood Gas Modality VCT Inspired O2 100 Sodium 139 Potassium 4.9 H Chloride 113 H Carbon Dioxide 16 L BUN 63 H Creatinine 1.91 H Est GFR ( Amer) 41 L Est GFR (Non-Af Amer) 34 L BUN/Creatinine Ratio 33 H Glucose 137 H POC Glucose Calculated Osmolality 308 H Calcium 8.1 L Troponin I 01/05/17 01/04/17 01/04/17 00:00 23:59 20:08 WBC RBC Hgb Hct MCV MCH MCHC RDW Plt Count MPV Immature Gran % Seg Neutrophils % Lymphocytes % Monocytes % Eosinophils % Basophils % Neutrophils # Lymphocytes # Monocytes # Eosinophils # Basophils # Nucleated RBCs/100 WBC Immature Plt Fraction ABG pH ABG pCO2 ABG pO2 ABG HCO3 ABG Total CO2 ABG O2 Saturation ABG Base Excess Blood Gas Modality Inspired O2 Sodium Potassium Chloride Carbon Dioxide BUN Creatinine Est GFR ( Amer) Est GFR (Non-Af Amer) BUN/Creatinine Ratio Glucose POC Glucose 98 H 94 H 101 H Calculated Osmolality Calcium Troponin I 01/04/17 01/04/17 01/04/17 16:35 16:02 12:23 WBC RBC Hgb Hct MCV MCH MCHC RDW Plt Count MPV Immature Gran % Seg Neutrophils % Lymphocytes % Monocytes % Eosinophils % Basophils % Neutrophils # Lymphocytes # Monocytes # Eosinophils # Basophils # Nucleated RBCs/100 WBC Immature Plt Fraction ABG pH ABG pCO2 ABG pO2 ABG HCO3 ABG Total CO2 ABG O2 Saturation ABG Base Excess Blood Gas Modality Inspired O2 Sodium Potassium Chloride Carbon Dioxide BUN Creatinine Est GFR ( Amer) Est GFR (Non-Af Amer) BUN/Creatinine Ratio Glucose POC Glucose 166 H 183 H Calculated Osmolality Calcium Troponin I 0.05 H* 01/04/17 01/04/17 07:52 03:59 WBC RBC Hgb Hct MCV MCH MCHC RDW Plt Count MPV Immature Gran % Seg Neutrophils % Lymphocytes % Monocytes % Eosinophils % Basophils % Neutrophils # Lymphocytes # Monocytes # Eosinophils # Basophils # Nucleated RBCs/100 WBC Immature Plt Fraction ABG pH ABG pCO2 ABG pO2 ABG HCO3 ABG Total CO2 ABG O2 Saturation ABG Base Excess Blood Gas Modality Inspired O2 Sodium Potassium Chloride Carbon Dioxide BUN Creatinine Est GFR ( Amer) Est GFR (Non-Af Amer) BUN/Creatinine Ratio Glucose POC Glucose 126 H 110 H Calculated Osmolality Calcium Troponin I - Impressions ITS Impressions Chest X-Ray 01/01/17 04:00 IMPRESSION: 1. New right basilar opacity is suspicious for pneumonia. 2. Stable small left pleural effusion with suspected new small right pleural effusion. 3. Enteric tube tip is within the stomach with side port below the gastroesophageal junction. D/ / Mason Waggoner MD / Mason Waggoner MD Interpreting Provider: Mason Waggoner MD Chest X-Ray 01/01/17 09:50 IMPRESSION: 1. Right subclavian central venous catheter as above. 2. Enteric tube tip within the proximal stomach with the side hole above the esophagogastric junction. Consider advancing by at least 6 cm. D/ / George Anderson MD / George Anderson MD Interpreting Provider: George Anderson MD X-Ray 01/01/17 13:25 IMPRESSION: OG catheter tip projects over the gastric body/ fundus. Persistent colonic dilation. D/ / Derrell Banegas MD / Derrell Banegas MD Interpreting Provider: Derrell Banegas MD Head CT 01/02/17 11:00 IMPRESSION: No acute intracranial abnormality. If acute cerebral infarct is a clinical concern, an MRI is a more sensitive study. D/ / Mi Hwang Cha, MD / Mi Hwang Cha, MD Interpreting Provider: Mi Hwang Cha, MD Chest X-Ray 01/04/17 07:31 IMPRESSION: Stable chest. D/ / 01/04/2017 08:07:07 Leydi Araujo MD / earsid Interpreting Provider: Leydi Araujo MD Date of admission: 12/31/16 19:40 Primary care physician: Tesfaye Brock, Consults: 12/31/16 19:56 Consult to Nutrition [CONS] Routine Comment: Consulting Provider: NUTRITION Reason for Dietary Consult: TF Start and Manage 12/31/16 22:08 Consult to Invasive Line Access Team [CONS] Routine Reason for Consult: Lack of venous access for intravenous medication therapy and blood sampling Line Type: EPIV PICC line indications: Limited vascular access Time Notified: 22:09 Call Completed: Yes 01/01/17 07:00 Consult to Pulmonology [CONS] Routine Consulting Provider: Pulm Crit Care & [facility] [place] Reason for Consult: Ventilator-dependent respiratory failure secondary to acute aspiration pneumonia. Multiple comorbidities. These evaluate and advise and provide pulmonary management oversight. Time Notified: 20:06 Call Completed: No 01/01/17 16:41 Consult to Wound Care [CONS] Routine Reason for Consult: 86y/o male admitted to ICU. Arrived with partially and poorly healed Stage I and II decubs. Please evaluated and provide treatment recommendations. Call Completed: No 01/02/17 08:47 Consult to Palliative Care [CONS] Routine Comment: Consulting Provider: Palliative [facility] [place] Discharging clinician: Nik Flaherty Anticipated date of discharge: 01/05/17 - Patient Status Disposition: - Discharge Instructions Follow Up With: Tesfaye Brock DO [Primary Care Provider] - - Hospital Course Hospital course: Mr. Mccoy is a 86 year old male who presented to the emergency department 6 days ago in respiratory distress and subsequently emergently intubated. He was admitted to the ICU with septic shock and in acute respiratory failure. 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 Despite maximal medical measures, he became progressively more difficult to intubate, his vital signs became more volatile, and leukocytosis steadily increased. With pallitiave care involvement, the patient's family collectively decided on DNR-CC status and terminally extubated at 13:00 today. Measures were taken to ensure Mr. Mccoy remained comfortable. He at 16:49 today. - Time Spent with Patient Total time spent providing and/or coordinating discharge services: Greater than 30 minutes Physical Examination Vital Signs: Patient 16:49 01/05/17. Evaluated by nursing: Absent pulmonary sounds and movement, absent cardiac sounds, no pupillary reflex. Physical exam below is per nursing: Effort: other (absent) Auscultation: bilateral: other (absent) Cardiovascular: other (absent heart sounds) other (Pupils fixed, non-reactive.) - VTE Documentation of Mechanical Device: Intermittent pneumatic compression device <Danika Etienne - Last Filed: 01/05/17 20:17> Date of Encounter: 01/05/17 Labs on day of discharge: Labs from last 24 hours 01/05/17 01/05/17 01/05/17 04:54 04:42 04:42 WBC 13.2 H RBC 2.66 L Hgb 8.4 L Hct 26.6 L MCV 100.0 MCH 31.6 MCHC 31.6 RDW 15.9 H Plt Count 90 L MPV 11.1 Immature Gran % 3.8 Seg Neutrophils % 82.4 Lymphocytes % 4.6 Monocytes % 5.9 Eosinophils % 3.1 Basophils % 0.2 Neutrophils # 10.9 H Lymphocytes # 0.6 Monocytes # 0.8 Eosinophils # 0.4 Basophils # 0.0 Nucleated RBCs/100 WBC 0.2 H Immature Plt Fraction 4.4 ABG pH 7.22 L ABG pCO2 40 ABG pO2 382 H ABG HCO3 16.4 L ABG Total CO2 17.6 L ABG O2 Saturation 100 H ABG Base Excess -10.6 L Blood Gas Modality VCT Inspired O2 100 Sodium 139 Potassium 4.9 H Chloride 113 H Carbon Dioxide 16 L BUN 63 H Creatinine 1.91 H Est GFR ( Amer) 41 L Est GFR (Non-Af Amer) 34 L BUN/Creatinine Ratio 33 H Glucose 137 H POC Glucose Calculated Osmolality 308 H Calcium 8.1 L Troponin I 01/05/17 01/04/17 01/04/17 00:00 23:59 20:08 WBC RBC Hgb Hct MCV MCH MCHC RDW Plt Count MPV Immature Gran % Seg Neutrophils % Lymphocytes % Monocytes % Eosinophils % Basophils % Neutrophils # Lymphocytes # Monocytes # Eosinophils # Basophils # Nucleated RBCs/100 WBC Immature Plt Fraction ABG pH ABG pCO2 ABG pO2 ABG HCO3 ABG Total CO2 ABG O2 Saturation ABG Base Excess Blood Gas Modality Inspired O2 Sodium Potassium Chloride Carbon Dioxide BUN Creatinine Est GFR ( Amer) Est GFR (Non-Af Amer) BUN/Creatinine Ratio Glucose POC Glucose 98 H 94 H 101 H Calculated Osmolality Calcium Troponin I 01/04/17 01/04/17 01/04/17 16:35 16:02 12:23 WBC RBC Hgb Hct MCV MCH MCHC RDW Plt Count MPV Immature Gran % Seg Neutrophils % Lymphocytes % Monocytes % Eosinophils % Basophils % Neutrophils # Lymphocytes # Monocytes # Eosinophils # Basophils # Nucleated RBCs/100 WBC Immature Plt Fraction ABG pH ABG pCO2 ABG pO2 ABG HCO3 ABG Total CO2 ABG O2 Saturation ABG Base Excess Blood Gas Modality Inspired O2 Sodium Potassium Chloride Carbon Dioxide BUN Creatinine Est GFR ( Amer) Est GFR (Non-Af Amer) BUN/Creatinine Ratio Glucose POC Glucose 166 H 183 H Calculated Osmolality Calcium Troponin I 0.05 H* 01/04/17 01/04/17 07:52 03:59 WBC RBC Hgb Hct MCV MCH MCHC RDW Plt Count MPV Immature Gran % Seg Neutrophils % Lymphocytes % Monocytes % Eosinophils % Basophils % Neutrophils # Lymphocytes # Monocytes # Eosinophils # Basophils # Nucleated RBCs/100 WBC Immature Plt Fraction ABG pH ABG pCO2 ABG pO2 ABG HCO3 ABG Total CO2 ABG O2 Saturation ABG Base Excess Blood Gas Modality Inspired O2 Sodium Potassium Chloride Carbon Dioxide BUN Creatinine Est GFR ( Amer) Est GFR (Non-Af Amer) BUN/Creatinine Ratio Glucose POC Glucose 126 H 110 H Calculated Osmolality Calcium Troponin I - Impressions ITS Impressions Chest X-Ray 01/01/17 04:00 IMPRESSION: 1. New right basilar opacity is suspicious for pneumonia. 2. Stable small left pleural effusion with suspected new small right pleural effusion. 3. Enteric tube tip is within the stomach with side port below the gastroesophageal junction. D/ / Mason Waggoner MD / Mason Waggoner MD Interpreting Provider: Mason Waggoner MD Chest X-Ray 01/01/17 09:50 IMPRESSION: 1. Right subclavian central venous catheter as above. 2. Enteric tube tip within the proximal stomach with the side hole above the esophagogastric junction. Consider advancing by at least 6 cm. D/ / George Anderson MD / George Anderson MD Interpreting Provider: George Anderson MD X-Ray 01/01/17 13:25 IMPRESSION: OG catheter tip projects over the gastric body/ fundus. Persistent colonic dilation. D/ / Derrell Banegas MD / Derrell Banegas MD Interpreting Provider: Derrell Banegas MD Head CT 01/02/17 11:00 IMPRESSION: No acute intracranial abnormality. If acute cerebral infarct is a clinical concern, an MRI is a more sensitive study. D/ / Mi Hwang Cha, MD / Mi Hwang Cha, MD Interpreting Provider: Mi Hwang Cha, MD Chest X-Ray 01/04/17 07:31 IMPRESSION: Stable chest. D/ / 01/04/2017 08:07:07 Leydi Araujo MD / yue Interpreting Provider: Leydi Araujo MD Date of admission: 12/31/16 19:40 Primary care physician: Tesfaye Brock, Consults: 12/31/16 19:56 Consult to Nutrition [CONS] Routine Comment: Consulting Provider: NUTRITION Reason for Dietary Consult: TF Start and Manage 12/31/16 22:08 Consult to Invasive Line Access Team [CONS] Routine Reason for Consult: Lack of venous access for intravenous medication therapy and blood sampling Line Type: EPIV PICC line indications: Limited vascular access Time Notified: 22:09 Call Completed: Yes 01/01/17 07:00 Consult to Pulmonology [CONS] Routine Consulting Provider: Pulm Crit Care & Sleep [place] Reason for Consult: Ventilator-dependent respiratory failure secondary to acute aspiration pneumonia. Multiple comorbidities. These evaluate and advise and provide pulmonary management oversight. Time Notified: 20:06 Call Completed: No 01/01/17 16:41 Consult to Wound Care [CONS] Routine Reason for Consult: 86y/o male admitted to ICU. Arrived with partially and poorly healed Stage I and II decubs. Please evaluated and provide treatment recommendations. Call Completed: No 01/02/17 08:47 Consult to Palliative Care [CONS] Routine Comment: Consulting Provider: Palliative Care [place] - Hospital Course Hospital course: Mr. Mccoy is a 86 year old male - Time Spent with Patient Total time spent providing and/or coordinating discharge services: - Attending Attestation I examined this patient and my medical decision-making was reviewed with the MINE WIRER/PA/Advanced Practice Nurse/Resident Physician. I agree with the documented findings, disposition and treatment plan as described except to the extent set forth below. Patient had all family members at the bedside and they wanted patient to be terminally extubated and that was done. Patient after that. Patient with multiple medical problems and was expected to after extubation.
== END 2017-01-05 16:49 | disposition expired | DRG 870 ==
LOC: EMEROO 18:31 → ICNU 19:40
PROVIDERS: ADMIT Internal Medicine; ATTEND Internal Medicine